=== PATIENT | female | born 1950 | race Caucasian/White ===

== ENCOUNTER → 2018-02-01 | Outpatient (CLI) | payer MEDICARE, MEDICAID ==
[~2018-02-01] MED LIST: AMLODIPINE-BEN1 EAC2 PO; ASA81BEC PO; ASPIRIN325 PO; BENZTROPINE MES1 MG; BENZTROPINE MES1 MG PO; CABERGOLINE 0.0.5 M1 PO; CALCIUM 500 +1 EAC5 PO; CLEOCIN HCL150 MG PO; COZAAR100 MG; COZAAR100 MG PO; DEPAKOTE ER500 MG; DEPAKOTE ER500 MG PO; FOSAMAX 70 MG T70 MG PO; HYDROCODON-ACE1 EAC7 PO; IBUPROFEN 600600 M1 PO; LASIX 20 MG TAB20 MG PO; LATUDA40 MG; LEVOTHROID100 MC1; LEVOTHYROXINE100 MC1; LIDOCAINE1 EACH TRANSDERM; LIPITOR10 MG PO; LOTREL 5-10 MG1 EACH; MACROBID 100 M100 M1 PO; MACROBID 100 M100 M2 PO; MACROBID 100 M100 M3 PO; MULTAQ400 MG PO; NEXIUM40 MG; NEXIUM40 MG PO; NITROGLYCERIN0.4 MG SUBLING; NORVASC2.5 MG PO; NORVASC5 MG PO; ONDANSETRON HCL4 M2 PO; OSELB75 PO; PERCOCET 5-3251 EACH PO; RISPERDAL 3 MG T3 M1 PO; RISPERDAL M-TA0.5 MG PO; RISPERDAL M-TAB3 MG; RYTHMOL 150MG150 M1 PO; SYNTHROID PO; SYNTHROID150 MCG PO; TRAMADOL 50 MG50 MG PO; TYLENOL325 MG PO
[2018-02-01 14:12] LABS: ABSOLUTE LYMPHOCYTES 1.8 thou/uL (0.8-5.3); ABSOLUTE MONOCYTES 0.5 thou/uL (0.0-1.2); ABSOLUTE NEUTROPHILS 3.2 thou/uL (1.6-8.1); BASOPHILS 0.9 %; EOSINOPHILS 0.7 %; HEMATOCRIT 33.5 % (37.0-47.0); HEMOGLOBIN 11.2 gm/dL (12.0-15.0); LYMPHOCYTES 32.7 %; MCH 28.8 pg (26.0-34.0); MCHC 33.4 g/dL (28.0-37.0); MCV 86.2 fL (80.0-100.0); MONOCYTES 9.3 %; MPV 9.1 fl. (7.2-11.1); NUCLEATED RBCS 0 /100WBC; PLATELET COUNT* 173 thou/uL (150-400); POLYS 56.4 %; RBC 3.88 mil/uL (4.20-5.00); WBC 5.6 thou/uL (4.0-11.0)
[2018-02-01 14:35] LABS: ALBUMIN 2.9 g/dL (3.4-5.0); CALCIUM 8.7 mg/dL (8.5-10.1); CREATININE 0.9 mg/dL (0.6-1.3); POTASSIUM 3.7 mmol/L (3.5-5.1); TOTAL BILIRUBIN 0.4 mg/dL (<0.1-1.0); TOTAL PROTEIN 6.2 g/dL (6.4-8.2)
== END ==
LOC: M.LAB 13:30
PROVIDERS: Nurse Practitioner Adult Health
DX: R19.7 Diarrhea, unspecified (principal); I10 Essential (primary) hypertension; E03.9 Hypothyroidism, unspecified; I48.91 Unspecified atrial fibrillation; M19.90 Unspecified osteoarthritis, unspecified site

== ENCOUNTER 2018-02-27 17:11 | Inpatient (IN) | payer MEDICARE, MEDICAID ==
[~2018-02-27] VITALS: Ht 170.2 cm; Wt 95.3 kg
[~2018-02-27 17:11] MED LIST changes: -CALCIUM 500 +1 EAC5 PO; -FOSAMAX 70 MG T70 MG PO; -LASIX 20 MG TAB20 MG PO; -LIDOCAINE1 EACH TRANSDERM; -MACROBID 100 M100 M1 PO; -MACROBID 100 M100 M3 PO; -SYNTHROID150 MCG PO; -TRAMADOL 50 MG50 MG PO; -TYLENOL325 MG PO
[2018-02-27 17:12] VITALS: BP 157/69
[2018-02-27 17:51] LABS: ABSOLUTE BASOPHILS 0.1 thou/uL (0.0-0.2); ABSOLUTE LYMPHOCYTES 1.6 thou/uL (0.8-5.3); ABSOLUTE MONOCYTES 0.7 thou/uL (0.0-1.2); ABSOLUTE NEUTROPHILS 4.5 thou/uL (1.6-8.1); BASOPHILS 0.8 %; EOSINOPHILS 0.5 %; HEMOGLOBIN 10.9 gm/dL (12.0-15.0); LYMPHOCYTES 23.3 %; MCH 28.7 pg (26.0-34.0); MCHC 32.9 g/dL (28.0-37.0); MCV 87.2 fL (80.0-100.0); MONOCYTES 10.4 %; MPV 8.9 fl. (7.2-11.1); NUCLEATED RBCS 0 /100WBC; PLATELET COUNT* 140 thou/uL (150-400); RBC 3.79 mil/uL (4.20-5.00); RDW-CV 17.1 % (10.5-14.5); WBC 6.9 thou/uL (4.0-11.0)
[2018-02-27 18:01] LABS: CALCIUM 8.3 mg/dL (8.5-10.1)
[2018-02-27 18:06] LABS: ALBUMIN 2.5 g/dL (3.4-5.0); TOTAL BILIRUBIN 0.4 mg/dL (<0.1-1.0); TOTAL PROTEIN 5.9 g/dL (6.4-8.2)
[2018-02-27 18:11] LABS: POTASSIUM 2.8 mmol/L (3.5-5.1)
[2018-02-27 20:31] LABS: CK-MB MASS 0.9 ng/mL (<0.5-3.6); TROPONIN-I LEVEL <0.06 ng/mL (<0.06)
[2018-02-27 22:26] VITALS: BP 132/55
[2018-02-28 01:34] VITALS: BP 161/65
[2018-02-28 05:10] VITALS: BP 118/52
[2018-02-28 05:48] LABS: ABSOLUTE BASOPHILS 0.1 thou/uL (0.0-0.2); ABSOLUTE LYMPHOCYTES 2.3 thou/uL (0.8-5.3); ABSOLUTE MONOCYTES 0.7 thou/uL (0.0-1.2); ABSOLUTE NEUTROPHILS 3.8 thou/uL (1.6-8.1); EOSINOPHILS 0.6 %; HEMATOCRIT 33.9 % (37.0-47.0); HEMOGLOBIN 11.1 gm/dL (12.0-15.0); LYMPHOCYTES 33.5 %; MCH 29.2 pg (26.0-34.0); MCHC 32.7 g/dL (28.0-37.0); MCV 89.2 fL (80.0-100.0); MONOCYTES 10.4 %; MPV 10.3 fl. (7.2-11.1); NUCLEATED RBCS 0 /100WBC; PLATELET COUNT* 120 thou/uL (150-400); POLYS 54.5 %; RBC 3.81 mil/uL (4.20-5.00); RDW-CV 17.2 % (10.5-14.5)
[2018-02-28 06:05] LABS: ALBUMIN 2.5 g/dL (3.4-5.0); CREATININE 0.9 mg/dL (0.6-1.3); POTASSIUM 3.3 mmol/L (3.5-5.1); TOTAL BILIRUBIN 0.3 mg/dL (<0.1-1.0); TOTAL PROTEIN 5.8 g/dL (6.4-8.2)
[2018-02-28 08:17] VITALS: BP 132/56
--- NOTE | 2018-02-28 14:47 | EKG ---
[place] [address] ELECTROCARDIOGRAM REPORT Name: DOMINICK AGRAWAL Room: [address] IN .R.#: [id number] Admission: 02/27/18 Attend Phys: Clint Delgadillo MD Discharge: Date of : 50 Report #: [id number] THIS REPORT FOR: //name// [facility] ED Test Date: 2018-02-27 Test Time: 17:36:19 Pat Name: DOMINICK AGRAWAL Department: Room: Gender: F Genomics Scientist: Isa ANTON : 1950 Requested By: Cory Farrell Order Number: [id number] MD: Brandon Kauffman Measurements Intervals [place] Rate: 47 P: 51 TX: 128 QRS: -17 QRSD: 106 T: 15 QT: 503 QTc: 445 Interpretive Statements Sinus bradycardia Borderline left axis deviation Low voltage, precordial leads Minimal ST depression, lateral leads Compared to ECG 05/10/2017 20:21:02 Low QRS voltage now present ST (T wave) deviation now present Sinus rhythm no longer present Electronically Signed On 02-28-2018 14:47:25 CDT by Brandon Kauffman [email or web address] <ELECTRONICALLY SIGNED> By: Brandon Kauffman MD, FACC 02/28/18 1447 1736 1736 Brandon Kauffman MD, FAC /EPI
--- NOTE | 2018-02-28 14:55 | EKG ---
[place] [address] ELECTROCARDIOGRAM REPORT Name: DOMINICK AGRAWAL Room: [address] ADM IN .R.#: [id number] Admission: 02/27/18 Attend Phys: Clint Delgadillo MD Discharge: Date of : 50 Report #: [id number] THIS REPORT FOR: //name// [facility] ED Test Date: 2018-02-28 Test Time: 07:24:03 Pat Name: DOMINICK AGRAWAL Department: Room: [place] [address] Gender: F Material Control Clerk: [facility] : 1950 Requested By: David Jimenez Order Number: [id number] MD: Brandon Kauffman Measurements Intervals [place] Rate: 59 P: 223 SC: 76 QRS: -25 QRSD: 121 T: 22 QT: 462 QTc: 458 Interpretive Statements Sinus rhythm Short SC interval Baseline artifact noted Compared to ECG 05/10/2017 20:21:02 Short SC interval now present Electronically Signed On 02-28-2018 14:54:55 CDT by Brandon Kauffman [email or web address] <ELECTRONICALLY SIGNED> By: Brandon Kauffman MD, [facility] 02/28/18 1454 0724 0724 Brandon Kauffman MD, [facility] /EPI
[2018-02-28 16:44] VITALS: BP 124/62
[2018-03-01] VITALS: BP 130/60
[2018-03-01 08:00] VITALS: BP 128/69
[2018-03-01 16:45] VITALS: BP 125/57
[2018-03-01 23:45] VITALS: BP 139/79
[2018-03-02 03:45] VITALS: BP 139/62
[2018-03-02 09:00] VITALS: BP 137/65
[2018-03-02 14:08] VITALS: BP 137/65
--- NOTE | 2018-03-06 08:44 | CON ---
[address] [address] CONSULTATION Name: DOMINICK AGRAWAL Room: [address] IN .R.#: [id number] Admission: 02/27/18 Attend Phys: Clint Delgadillo MD Discharge: 03/02/18 Date of : 50 Report #: [id number] THIS REPORT FOR: //name// CC: Clint Nash MD [facility] Brandon Steel MD DATE OF SERVICE: 02/28/2018 CARDIOLOGY CONSULTATION INDICATION: Bradycardia. HISTORY OF PRESENT ILLNESS: The patient is a very pleasant 67-year-old white female with history of paroxysmal atrial fibrillation. She has been maintaining sinus rhythm on Multaq 400 mg twice daily. She was admitted to the hospital after a fall at home. She is noted to be moderately bradycardic with heart rate in the 50s and upper 40s. She is hemodynamically stable. She does report some positional dizziness without syncope. She denies chest pain. She is without other cardiac complaint. There was some suggestion on EKG with possible atrial flutter, although I believe this represents some form of tremor or electrical artifact as she is clearly in sinus rhythm. She denies chest pain. She is without other cardiac complaint. PAST MEDICAL HISTORY: 1. Paroxysmal atrial fibrillation. 2. Essential hypertension. 3. GERD. 4. Hyperlipidemia. 5. Hypothyroidism. 6. Orthostatic hypotension. 7. Schizoaffective disorder. PAST SURGICAL HISTORY: 1. Hand surgery. 2. Salivary gland surgery. 3. Tumor removal. FAMILY HISTORY: Positive for heart failure. SOCIAL HISTORY: The patient is a lifelong nonsmoker. She does not drink alcohol. ALLERGIES: KEFLEX, CODEINE, CORTISONE, DOXYCYCLINE, FISH OIL, HYDROCHLOROTHIAZIDE, IODINE, LASIX, PENICILLIN G, PENTAZOCINE, PO[place] EXTRACT, [place] [address] CONSULTATION Name: DOMINICK AGRAWAL Room: [address]#: [id number] Admission: 02/27/18 Attend Phys: Clint Delgadillo MD Discharge: 03/02/18 Date of : 50 Report #: [id number] PREDNISONE, PROCAINE, SULFA ANTIBIOTICS. PHYSICAL EXAMINATION: VITAL SIGNS: Blood pressure 132/56, pulse 53 and regular. GENERAL: This is a pleasant lady in no distress. Mood and affect appropriate. HEENT: The patient is wearing glasses. Extraocular muscles intact. Mucous membranes are moist. NECK: Shows no jugular venous distention. There are no carotid bruits. CHEST: Reveals clear lung owens. CARDIAC: Reveals a bradycardic rate, regular rhythm without gallop or murmur. ABDOMEN: Reveals normal bowel sounds. The abdomen is soft, nontender. EXTREMITIES: Shows no edema. Peripheral pulses 2+ and easily palpable. SKIN: Warm and dry. LABORATORY DATA: EKG shows sinus bradycardia. Some or most leads appears to be some electrical interference or artifact. IMPRESSION AND RECOMMENDATIONS: 1. Bradycardia, no specific treatment at this time. We will follow clinically. 2. Paroxysmal atrial fibrillation by history. She has had no clinical recurrence. EKG shows sinus rhythm with some electrical artifact. No other specific treatment at this time. 3. Hypertension, adequately controlled. 4. History of dyslipidemia, diet-controlled. <ELECTRONICALLY SIGNED> By: Brandon Kauffman MD, FACC 03/06/18 0844 1406 [id number] Kauffman MD, FACC /nt
== END 2018-03-02 17:11 | DRG 103 ==
LOC: M.ERS 17:11 → M.3W 20:31 → M.TBA-ER 20:31 → M.3W 02-28 08:26
PROVIDERS: Emergency Medicine; Nurse Practitioner Psychiatric/Mental Health; ADMIT Internal Medicine
DX: F07.81 Postconcussional syndrome (principal); I48.92 Unspecified atrial flutter; E44.0 Moderate protein-calorie malnutrition; R00.1 Bradycardia, unspecified; T14.8XXA Other injury of unspecified body region, initial encounter; E87.6 Hypokalemia; I48.0 Paroxysmal atrial fibrillation; M19.90 Unspecified osteoarthritis, unspecified site; Z96.652 Presence of left artificial knee joint; I10 Essential (primary) hypertension; K21.9 Gastro-esophageal reflux disease without esophagitis; E78.5 Hyperlipidemia, unspecified; E03.9 Hypothyroidism, unspecified; F25.9 Schizoaffective disorder, unspecified; Z82.49 Family history of ischemic heart disease and other diseases of the circulatory system; Z88.0 Allergy status to penicillin; Z88.2 Allergy status to sulfonamides; Z88.8 Allergy status to other drugs, medicaments and biological substances; Z88.6 Allergy status to analgesic agent; Z91.041 Radiographic dye allergy status; Z88.1 Allergy status to other antibiotic agents; Z86.010 Personal history of colon polyps; Z68.32 Body mass index [BMI] 32.0-32.9, adult; W18.39XA Other fall on same level, initial encounter; Y93.89 Activity, other specified; Y92.89 Other specified places as the place of occurrence of the external cause; Y99.8 Other external cause status

== ENCOUNTER 2018-03-02 16:07 | Inpatient (IN) | payer MEDICARE, MEDICAID ==
[~2018-03-02] VITALS: Ht 170.2 cm; Wt 96.8 kg
[2018-03-02 17:23] VITALS: BP 116/61
--- NOTE | 2018-03-02 17:47 | NUR ---
ASSUMED CARE OF PT AT 1650 PT HAS C/O PAIN IN LOWER BACK AT THIS TIME, STANDING ORDERS FOR ACETAMINOPHEN AT THIS TIME. WILL PROVIDE ALICJA. PT VSS UPON ADMISSION TO UNIT. CALLED DIETARY TO OBTAIN TRAY FOR PT AT THIS TIME. WILL CONTINUE TO ASSESS AND MONITOR
--- NOTE | 2018-03-02 18:51 | NUR ---
PT VSS AT THIS TIME, PT PROVIDED WITH ACETAMINOPHEN 650MG PER STANDING ORDER, PHYSICIAN HAS NOT RETURNED CALL TO PLACE ORDERS AT THIS TIME. PHYSICIAN HAS BEEN NOTIFIED PT HAS ARRIVED TO THE UNIT. PT ABLE TO STAND PIVOT TO BSC AND TO BED AT THIS TIME. PT TOLERATING REGULAR DIET, AND RA AT THIS TIME. PT AMBULATES WITH WALKER AND GAIT BELT. PT HAS BILATERAL 1+ PITTING EDEMA IN LOWER EXTREMETIES AT THIS TIME. WILL CONTINUE TO ASSESS AND MONITOR.
[2018-03-02 20:00] VITALS: BP 135/68
--- NOTE | 2018-03-02 23:27 | NUR ---
ASSUMED CARES AT 1915. REVIEWED PT'S MEDS. PT STATES TAKES PILLS ONE BY ONE WITH WATER. AFTER SWALLOWING FIRST PILL WITH WATER, PT BEGAN COUGHING FIT. SPIT OUT SOME CLEAR MUCOUS. THIS LASTED FOR SEVERAL MINUTES. AFTERWARDS PT STATED THAT STILL FELT LIKE PILL WAS STILL STUCK IN THROAT. APPLESAUCE/PUDDING GIVEN. ENCOURAGED DRINKING AND COUGHING. EVENTUALLY TOOK REST OF PILLS IN APPLESAUCE. PT DENIED ANY PREVIOUS SWALLOWING ISSUES AND HAD JUST EARLIER EATEN DINNER WITHOUT ISSUES. OBTAINED ORDER FROM DR MÉNDEZ TO ADD BEDSIDE SWALLOW EVAL WITH SPEECH IN AM. WILL CONTINUE TO MONITOR.
[2018-03-03 04:05] LABS: HEMATOCRIT 32.3 % (37.0-47.0); MCH 29.4 pg (26.0-34.0); MCHC 34.1 g/dL (28.0-37.0); MCV 86.2 fL (80.0-100.0); MPV 9.4 fl. (7.2-11.1); RBC 3.75 mil/uL (4.20-5.00); WBC 7.5 thou/uL (4.0-11.0)
[2018-03-03 04:26] LABS: CALCIUM 8.3 mg/dL (8.5-10.1); CREATININE 0.8 mg/dL (0.6-1.3); POTASSIUM 3.9 mmol/L (3.5-5.1)
--- NOTE | 2018-03-03 06:44 | NUR ---
PT ALERT AND ORIENTED. PLEASANT AND COOPERATIVE. S/P FALL AT HOME. HX OF AFIB, SCHIZOPHRENIA. DENIED ANY NEED FOR PAIN MED. TOOK PILLS WITH APPLESAUCE THIS AM WITHOUT ANY FURTHER ISSUES. SHE IS MOD ASSIST WITH GAIT BELT AND WALKER. NEEDS ASSIST WITH LEGS INTO BED. VERY SLOW WITH TRANSFERS. NEEDS MUCH CUEING FOR PROPER TRANSFERRING. UP TO BSC. RN ASSISTED WITH PERICARES. PT SAYS THAT HAS HAD URINARY INCONTINENCE AT TIMES BUT SHE WAS CONTINENT THIS SHIFT. HAS BLE EDEMA 2+. LEGS ELEVATED UP ONTO PILLOWS. DOES HAVE TREMORS TO HANDS. PT ORIENTED TO RM/UNIT AND QUESTIONS ANSWERED. PT SLEPT WELL MOST OF THE NIGHT. USED CALL LIGHT APPROPRIATELY. BED ALARM ON.
[2018-03-03 09:29] VITALS: BP 144/70
--- NOTE | 2018-03-03 09:59 | NUR ---
SW met with pt to complete initial assessment, introduce self, and SW role. SW familiar with pt from pt stay on med surg unit. Pt alert, oriented, pleasant. Pt lives at home in an ILF apt alone/senior apt setting. Pt has 2 sisters and a brother who live nearby. SW explained team conference on Tuesday; family contact can be Hong/brother at [phone] or Judy/sister at [phone]. Pt does not have a DPOA and pt did not want any information about DPOA/AD at this time. Pt independent with ADLs and mobility prior, drove and does not have any stairs at home. Pt has SPC, FWW, walker with a seat and basket, elevated toilet seats. Pt has hx of [employer]; still not certain of the name of the company but thinks it had "heart" in the name. Pt PCP Brandon Steel and saw him about a month ago. SW to continue to follow to assist with safe dc planning.
--- NOTE | 2018-03-03 11:33 | NUR ---
Nutrition: Pt admitted to rehab s/p fall and concussion. Lives in ILF apt. H/o HTN, schizoaffective disorder. Usual wt is 210-220#. Current wt: 217#. Regular diet, eating 90%. Alb 2.5, prealb 12.5. Hopeful for continued good po intake, with focus on HBV protein. Low nutrition risk at this time. Will follow weekly for labs, protein, po intake, wt.
--- NOTE | 2018-03-03 17:21 | NUR ---
RESUMED CARE THIS AM, A/O, DENIES PAIN, DISPLAYS MUCH IMPROVEMENT SINCE LAST ASSIGNED. ABLE TO WALK WITH SBA, CANE, GAIT BELT OVER 200 FT WITH THERAPY, MANEUVERED WELL WITH WALK-IN SHOWER THIS AM, WALKING FROM RECLINER TO BATHROOM, USING 4 POINT CANE. TOLERATING DIET WELL, DID HAVE MOD BM THIS AM. CONTINENT OF URINE THIS SHIFT, FAMILY/FRIENDS AT BEDSIDE, CALL LIGHT IN REACH, CONT POC.
--- NOTE | 2018-03-03 17:27 | NUR ---
RESUMED CARE THIS AM, A/O, DENIES PAIN, LAST BM THIS AM. CONTINENT OF URINE, UP W/ EXT ASSIST FOR TRANSFERS, SBA WITH LOCOMOTION, SETUP ASSIST WITH MEALS. WORKING WELL WITH THERAPIES, PROGRESSING TOWARD GOALS, MUCH IMPROVEMENT SINCE LAST ASSIGNMENT. CALL LIGHT IN REACH, CONT POC.
[2018-03-03 23:20] VITALS: BP 146/63
--- NOTE | 2018-03-04 05:22 | NUR ---
ASSUMED CARE AT 1920. PT ALERT AND ORIENTED. PLEASANT. DENIED ANY PAIN. PT TOOK PILLS WHOLE WITH WATER AND REFUSED ANY PUDDING/APPLESAUCE. DID NOT HAVE ANY ISSUES WITH SWALLOWING OF PILLS TONIGHT. SHE IS A MOD ASSIST WITH GAIT BELT AND WALKER. UP TO BSC. NEEDS EXTRA TIME. NEEDS RN ASSIST WITH PERICARES AND ONE SIDE DRESSING. PT SLEPT WELL. CALL LIGHT IN REACH AND BED ALARM ON.
--- NOTE | 2018-03-04 16:55 | NUR ---
ASSUMED CARE AT 0730 PATIENT ALERT/ORIENTED, NO COMPLAINTS OF PAIN THIS SHIFT, UP WITH ASSIST OF ONE WITH GAIT BELT AND WALKER. PARTICIPATED IN ALL THERAPIES TODAY, CALL LIGHT IN REACH, BED/CHAIR ALARMS IN PLACE. HOURLY ROUNDING COMPLETED. DR GUERRA SAW PATIENT FOR PODIATRY CONSULT.
[2018-03-04 19:30] VITALS: BP 134/62
--- NOTE | 2018-03-04 19:30 | NUR ---
RESTING QUIELTY IN BED. DENIES DISCOMFORT. DENTURES PUT TO SOAK PER PATIENT'S REQUEST.
--- NOTE | 2018-03-05 05:34 | NUR ---
RESTED QUIELTY. NO C/O DISCOMFORT. UP THIS MORNING TO BEDSIDE COMMODE WITH MODERATE ASSIST OF ONE, GAITBELT, WALKER. VERY SLOW. DID OWN HYGIENE. MAX ASSIST WITH PULLING PANTS AND UNDERWEAR UP AND DOWN. PATIENT UNSTEADY SO HELD ONTO WALKER AND PANTS ARE TIGHT. TOOK HS MEDS WHOLE ONE AT A TIME WITH VANILLA PUDDING FOLLOWED WITH WATER. TAKES PILLS WITH EXTRA TIME. HOURLY ROUNDING IN PROGRESS.
[2018-03-05 07:56] VITALS: BP 146/67
--- NOTE | 2018-03-05 17:48 | NUR ---
ASSUMED CARE AT 0730 PATIENT ALERT/ORIENTED NO COMPLAINTS OF PAIN THIS SHIFT, UP WITH ASSIST OF ONE AND WALKER/GAIT BELT, AMBULATED IN ROOM AND TO BATHROOM. CALL LIGHT IN REACH, BED/CHAIR ALARMS IN PLACE, HOURLY ROUNDING COMPLETED. FAMILY VISITING THROUGHOUT THE DAY.
[2018-03-05 19:45] VITALS: BP 123/58
--- NOTE | 2018-03-05 19:45 | NUR ---
RESTING QUIETLY IN BED. DENIES DISCOMFORT.
--- NOTE | 2018-03-06 05:27 | NUR ---
UP X ONE TO BEDSIDE COMMODE TO VOID. DID OWN HYGIENE. MAX ASSIST WITH CLOTHING. UNSTEADY WHEN UP. TOOK HS MEDS WHOLE ONE AT A TIME WITH CORNELL. HOURLY ROUNDING IN PROGRESS.
[2018-03-06 07:27] VITALS: BP 131/59
--- NOTE | 2018-03-06 16:30 | NUR ---
AM ASSESSMENT AND VITAL SIGNS COMPLETED DOCUMENTED. PT HAS BEEN PLEASANT AND COOPERATIVE, PARTICIPATED IN ALL THERAPY SESSIONS TODAY. PT HAS BEEN AMBULATORY TO AND FROM THE BATHROOM WITH WALKER AND MIN ASSIST, ABLE TO DO HER OWN HYGEINE BUT REQUIRES HELP WITH ADJUSTING CLOTHING. PT NEEDED NO HELP WITH TRAY SET UP OR EATING. FALL PRECAUTIONS AMD HOURLY ROUNDING CONTINUE, SHE USES THE CALL LIGHT TO CALL FOR ASSISTANCE.
[2018-03-06 20:00] VITALS: BP 126/59
--- NOTE | 2018-03-07 05:18 | NUR ---
ASSUMED CARES AT 1915. PT ALERT AND ORIENTED. PLEASANT. DOES HAVE SOME BACK PAIN BUT REFUSED PAIN MEDS. DENIES ANY SOA, DIZZINESS, N/V. TOOK PILLS WHOLE IN PUDDING WITHOUT ISSUES. SHE IS A MOD ASSIST WITH GAIT BELT AND WALKER. NEEDS EXTRA TIME. RN ASSISTED WITH LEGS INTO BED AND ONE SIDED DRESSING. SLEPT WELL. CALL LIGHT IN REACH AND BED ALARM ON.
[2018-03-07 08:00] VITALS: BP 103/56
--- NOTE | 2018-03-07 09:49 | NUR ---
AM ASSESSMENT AND VITAL SIGNS COMPLETED DOCUMENTED. PT ASSISTED OUT OF BED BY OT AND ADL's COMPLETED. PT SAT UP IN A CHAIR FOR BREAKFAST, NO ASSISTANCE NEEDED. AM MEDS GIVEN WHOLE WITH WATER. FALL PRECAUTIONS AND HOURLY ROUNDING IN PLACE. CALL LIGHT BESIDE HER.
--- NOTE | 2018-03-07 13:49 | NUR ---
SW called and spoke with pt brother to follow up and prepare for team conference. Pt brother said he would be interested to know to be able to plan ahead for pt dc date. Pt brother did not have any other concerns at the moment and said that he and his sister suspect that pt does not eat properly and they are looking into Meals on Wheels. SW to continue to follow to assist with safe dc planning.
--- NOTE | 2018-03-07 16:18 | NUR ---
I have reviewed the documentation by MAXIMO MOY TODAY and I concur with it. DELFINA CHEN
[2018-03-07 20:05] VITALS: BP 141/77
--- NOTE | 2018-03-08 05:02 | NUR ---
PATIENT HAS REMAINED ALERT AND ORIENTED X 4 THROUGHOUT THE SHIFT AND RESTING QUIETLY ON HOURLY ROUNDS. AMBULATED TO BR WITH WALKER AND GAIT BELT. CGA FOR SAFETY. SIT TO STAND WITH VERY MIN ASSIST FROM RECLINER AND CGA FROM TOILET. ABLE TO TO COMPLETE ALIREZA-CARE POST VOID INDEPENDENTLY AND PULL PANTS UP AND DOWN GIVEN TIME. NO INCONT OF THIS WRITING. MEDICATIONS PROVIDED IN CUP OF APPLESAUCE. PATIENT INDEPENDENT WITH TAKING FROM CUP WITH SPOON. VITAL SIGNS STABLE. CONTINUE TO MONITOR.
[2018-03-08 09:00] VITALS: BP 107/57
--- NOTE | 2018-03-08 13:49 | NUR ---
SW met with pt to review team conference summary. Plan for pt to continue therapies on rehab unit and for team to reassess pt length of stay during team conference next Thursday 03/15. Pt in agreement with plan. SW called and spoke with pt brother Wilfredo and reviewed team conference summary. Pt brother in agreement with plan and noted that he felt pt could do more than she does and strong encouragement in therapies to do more would be advisable. SW to share with team. SW to continue to follow to assist with safe dc planning.
--- NOTE | 2018-03-08 14:41 | NUR ---
I have reviewed the documentation by MAXIMO MOY TODAY and I concur with it. DELFINA CHEN
--- NOTE | 2018-03-08 16:24 | NUR ---
PT HAS PARTICIPATED WITH THERAPIES AND CALLS FOR ASSIST TO BATHROOM. PT AMBULATES WITH WALKER,GAITBELT AND 1 ASSIST WITH SLOW STEADY GAIT. PT VOIDS WELL AND WEARS BREIF FOR COMFORT AND IS ABLE TO PULL PANTS UP AND DOWN WITH EXTRA TIME.PT DENIES PAIN. PT EATS MEALS IN DINNINGROOM. PT REMAINS ALERT AND ORIENTATED AND PROGRESSES TOWARDS GOALS. HOURLY ROUNDING CONTINUES.
[2018-03-08 20:00] VITALS: BP 138/67
--- NOTE | 2018-03-09 05:58 | NUR ---
Alert and oriented x 4.Vitals are stable. She is up with stand by assist and walker and gaitbelt. She does have some hand tremors and does take depakote. She also wants her meds whole with applesauce or pudding. She denies pain. She was up in the recliner at start of shift and then went to bed. She denied having to use bathroom before going to bed. She did sleep in her clothes with her sweater on. This am she took her morning meds and again denied she had to use the bathroom. She has slept well.
[2018-03-09 07:52] VITALS: BP 141/59
--- NOTE | 2018-03-09 17:50 | NUR ---
PT ALERT AND ORIENTATED AND CALLS FOR ASSIST NEEDED. PT AMBULATES WITH WALKER,GAITBELT AND SLOW STEADY GAIT. PT VOIDS WELL AND IS CONTINENT. PT DENIES PAIN. MEALS TOLERATED WELL.PT PROGRESSES TOWARDS GOALS AND HOURLY ROUNDING CONTINUES.
[2018-03-09 20:00] VITALS: BP 113/53
--- NOTE | 2018-03-10 05:41 | NUR ---
PATIENT ALERT AND ORIENTED X 4. VITALS STABLE. RA. DENIES ANY NEEDS. SLEPT COMFORTABLY THROUGHT THE NIGHT. TAKES PILLS WHOLE IN APPLEASAUCE. UP WITH ASSIST X 1. HOURLY ROUNDS. BED ALARM IN USE. NURSING WILL CONTINUE TO MONITOR.
[2018-03-10 08:00] VITALS: BP 101/65
--- NOTE | 2018-03-10 16:52 | NUR ---
I have reviewed the documentation by MAXIMO MOY from 03/09/18 to 03/10/18 and I concur with it. DELFINA CHEN
--- NOTE | 2018-03-10 17:48 | NUR ---
ASSUMMED CARE OF PT AT 0730, PT ALERT, PT TRANSFERS WITH SBA GB WALKER MOVES SLOWLY NEEDS SOME CUEING, AMBULATED TO BATHROOM, DENIES PAIN, DENIES NAUSEA, TAKING FOOD AND FLUIDS WELL, ATE LUNCH AND DINNER IN DININGROOM, HOURLY ROUNDING COMPLETED, PARTICIPATED IN ALL THERAPIES, LEGS ELEVATED IN BED AND CHAIR BUT REMAIN EDEMATOUS, ASSESSMENT COMPLETE, WILL CONTINUE TO MONITOR.
[2018-03-10 20:00] VITALS: BP 117/50
--- NOTE | 2018-03-11 01:36 | NUR ---
ASSUMED CARE AT 1930. PATIENT ALREADY IN BED. TURNS SELF. TAKES PILLS WHOLE IN APPLESAUCE PER REQUEST. PAIN MEDS GIVEN AT HS FOR LT KNEE PAIN WITH RELIEF. LEGS ELEVATED AND HEELS OFFLOADED. HOURLY ROUNDS CONTINUE. BED ALARM ON. CALL LITE IN REACH.
[2018-03-11 03:58] LABS: HEMATOCRIT 32.2 % (37.0-47.0); HEMOGLOBIN 10.8 gm/dL (12.0-15.0); MCH 29.3 pg (26.0-34.0); MCHC 33.4 g/dL (28.0-37.0); MCV 87.7 fL (80.0-100.0); RBC 3.67 mil/uL (4.20-5.00); RDW-CV 17.8 % (10.5-14.5); WBC 7.4 thou/uL (4.0-11.0)
[2018-03-11 04:38] LABS: ALBUMIN 2.2 g/dL (3.4-5.0); CALCIUM 8.3 mg/dL (8.5-10.1); CREATININE 0.8 mg/dL (0.6-1.3); MAGNESIUM 2.1 mg/dL (1.8-2.4); TOTAL BILIRUBIN 0.3 mg/dL (<0.1-1.0); TOTAL PROTEIN 5.5 g/dL (6.4-8.2)
--- NOTE | 2018-03-11 06:02 | NUR ---
SLEPT MUCH OF THE SHIFT. TURNS SELF. CALL LITE IN REACH. BED ALARM ON. NO C/O PAIN. HOURLY ROUNDS CONTINUE. CALL LITE IN REACH.
[2018-03-11 08:00] VITALS: BP 148/68
--- NOTE | 2018-03-11 17:01 | NUR ---
ASSUMMED CARE OF PT AT 0730, PT ALERT AND ORIENTED, PT TRANSFERS WITH SBA GB WALKER CUEING AND VERY SLOW AT TIMES, PT DENIES PAIN, PT TAKING FOOD AND FLUIDS WELL, AMBULATES TO BATHROOM TO VOID, HAD LARGE BM THIS SHIFT, PARTICIPATED IN ALL THERAPIES, HOURLY ROUNDING COMPLETED, ASSESSMENT COMPLETE, WILL CONTINUE TO MONITOR.
[2018-03-11 20:00] VITALS: BP 110/52
--- NOTE | 2018-03-11 23:12 | NUR ---
ASSUMED CARE AT 1930. PATIENT RESTING IN BED. TURNS SELF. TAKES PILLS WHOLE WITH APPLESAUCE. BILAT FEET EDEMATOUS. HAS CALLOUSES BILAT FEET, LOTION LIBERALLY APPLIED AND GRIPPER SOCKS REAPPLIED PER REQUEST. STATES DR. LEON RECENTLY TRIMMED TOENAILS. DECLINED COLACE TONIGHT. UP WITH SBA, GAIT BELT, WALKER, NEEDS EXTRA TIME, BUT CAN DO HYGIENE AND CLOTHING ADJUSTMENTS GIVEN EXTRA TIME. TREMORS OF LEFT HAND NOTED AT TIMES. HOURLY ROUNDS CONTINUE. BED ALARM ON. CALL LITE IN REACH.
--- NOTE | 2018-03-12 05:16 | NUR ---
SLEPT MOST OF THE NIGHT. UP TO VOID ONCE. TURNS SELF. NO C/O PAIN. HOURLY ROUNDS CONTINUE. CALL LITE IN REACH. BED ALARM ON.
[2018-03-12 08:00] VITALS: BP 114/55
--- NOTE | 2018-03-12 16:57 | NUR ---
ASSUMMED CARE OF PT AT 0730, PT ALERT AND ORIENTED, PT TRANSFERS WITH SBA GB WALKER AND CUEING, MOVES SLOWLY, TAKING FOOD AND FLUIDS WELL, DENIES PAIN THIS SHIFT, AMBULATED TO BATHROOM TO VOID, PT DID BATH WITH SET UP AND ASSIST WITH LOWER LEGS AND FEET, HAD MEALS IN DININGROOM, MOVES SLOWLY WITH ALL ACTIVITES, HOURLY ROUNDING COMPLETED, ASSESSMENT COMPLETED, WILL CONTINUE TO MONITOR.
[2018-03-12 20:00] VITALS: BP 130/60
--- NOTE | 2018-03-12 22:08 | NUR ---
ASSUMED CARE AT 1930. PATIENT RESTING IN BED WATCHING TV. TAKES PILLS WHOLE IN APPLESAUCE. TREMOR NOTED TO LEFT HAND AT TIMES. MOVES SELF IN BED WELL, TURNS SELF. MOVES SLOWLY AND SPEAKS SLOWLY, BUT COMPLETES TASKS NEEDED. DENIES PAIN. HOURLY ROUNDS CONTINUE. BED ALARM ON. CALL LITE IN REACH.
--- NOTE | 2018-03-13 06:10 | NUR ---
SLEPT MOST OF THE SHIFT. GOT UP ONCE TO VOID. NEEDS EXTRA TIME, TAKES SMALL STEPS. UP WITH SBA, GAIT BELT, WALKER. NO C/O PAIN. HOURLY ROUNDS CONTINUE. BED ALARM ON. CALL LITE IN REACH.
[2018-03-13 07:07] VITALS: BP 144/66
--- NOTE | 2018-03-13 07:19 | NUR ---
ASSUMED CARE OF PT AT THIS TIME. PT RESTING COMFORTABLY IN BED AT THIS TIME WITH NO C/O PAIN AT THIS TIME. CALL LIGHT IN REACH, HEELS OFFLOADED, BED ALARM SET AT THIS TIME. PT EDUCATED REGARDING TAKING STOOL SOFTENER THIS MORNING DUE TO HAVING 2 DAYS WITHOUT A BM, PT AGREEABLE TO THIS PLAN AT THIS TIME. WILL CONTINUE TO ASSESS AND MONITOR.
[2018-03-13 07:27] VITALS: BP 144/66
--- NOTE | 2018-03-13 18:44 | NUR ---
PT AMBULATES TO RESTROOM WITH WALKER AND GAIT BELT THIS SHIFT WITH SBA THIS SHIFT. PT TOLERATING REGULAR DIET THIS SHIFT AND ATE 90% OF ALL 3 MEALS. PT PARTICIPATES IN DRESSING/UNDRESSING WITH MINIMAL/MODERATE ASSISTANCE THIS SHIFT. PT ON RA AND VSS AT THIS TIME. PT PARTICIPATES WITH MINIMAL ASSISTANCE IN GROOMING ADL'S.
[2018-03-13 20:00] VITALS: BP 126/63
--- NOTE | 2018-03-14 01:47 | NUR ---
ASSUMED CARE @ 1929-03/13-TUESDAY.AWAK,E IN BED W/ HOB UP.HEELS OFF BED ALREADY @ 1929.BED ALARM ALREADY ON @ 1929.WANTS ONLY SIDERAILS X3 UP.WANTS LIGHT ON SINK ALL NIGHT.TAKES SMALL PILLS WHOLE ONE @ A TIME W/ H20 @ 2029.BIG PILLS BROKEN IN HALF & GIVEN W/ APPLE SAUCE,BUT HAD DIFFICULTY SWALLOWING SO-VANILLA PUDDING USED INSTEAD.MIN ASSIST W/ BED TRANSFERS.SBA FOR ALL TOILETING.NOTED TREMORS ON LEFT HAND.PER PATIENT TREMORS ARE FROM TAKING RISPERIDONE X 10 YEARS.ON HOURLY ROUNDS.
--- NOTE | 2018-03-14 05:25 | NUR ---
SLEEPING SINCE 0.BRP W/ SBA X1.ATE ALL VANILLA PUDDING HS SNACKS W/ DEPAKOTE MEDS.
[2018-03-14 08:00] VITALS: BP 116/55
--- NOTE | 2018-03-14 15:21 | PLAN ---
[address] [address] REHAB UNIT PLAN OF CARE Name: DOMIINCK AGRAWAL Room: [address] IN [facility].#: [id number] Admission: 03/02/18 Attend Phys: Mindy Mcgee DO Discharge: Date of : 50 Report #: [id number] THIS REPORT FOR: //name// CC: Mindy Steel DATE OF SERVICE: 03/03/2018 OVERALL PLAN OF CARE The patient is a 67-year-old female status post fall from standing height with TBI and postconcussive syndrome. She had no loss of consciousness. She does have a complex medical history. She was cleared by Cardiology. She does have alterations in her mobility and activities of daily living, mostly from her memory changes, neck pain and back pain. 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 MEDICAL PROGNOSIS: Good. REHABILITATION PROGNOSIS: Good. Estimated length of stay is 10-12 days with discharge disposition to the home setting where she lives in an accessible house alone. Previous level of function was independent with activities of daily living to modified independent. Current level of function is contact guard assist to moderate assist of 1-2 depending on therapy, activity and time of day. She does have mild impairment of comprehension, expression, social interaction, problem solving and memory. Physical therapy will see the patient 60-90 minutes per day, 5 days per week, working on upper and lower body strength, balance, coordination, navigation. Occupational therapy will work with the patient 60-90 minutes per day, 5 days per week, working on upper and lower body strength, balance, coordination, navigation, bathing, dressing and toileting, this will be 60-90 minutes per day, 5 days per week. Speech language pathology will do bedside swallow to assess for her ability to swallow medications. We will also work cognitively on memory, cognition, social interaction, problem solving. This will be 30-90 minutes per day, 5 [place] [address] REHAB UNIT PLAN OF CARE Name: DOMINICK AGRAWAL Room: [address] IN ..#: [id number] Admission: 03/02/18 Attend Phys: Mindy Mcgee DO Discharge: Date of : 50 Report #: [id number] This is an overall plan of care, may change from time to time. We will team weekly and make changes to plan of care as needed. <ELECTRONICALLY SIGNED> By: Mindy Mcgee DO 03/14/18 1521 1202 [id number] Mcgee DO /nt
--- NOTE | 2018-03-14 15:21 | H ---
[address] [address] HISTORY AND PHYSICAL Name: DOMINICK AGRAWAL Room: [address] IN ..#: [id number] Admission: 03/02/18 Attend Phys: Mindy Mcgee DO Discharge: Date of : 50 Report #: [id number] THIS REPORT FOR: //name// CC: Mindy Steel HISTORY OF PRESENT ILLNESS: This is a 67-year-old female admitted to inpatient rehabilitation status post TBI with postconcussive syndrome after a fall, neck pain, back pain, history of bradycardia with negative cardiac workup and some shortness of breath. She was admitted on 02/27/2018. She did deny loss of consciousness and imaging was negative; however, she had persistent dizziness and alterations in activities of daily living from her previous level of function of modified independent to independent with activities of daily living. She is currently contact guard assist to mod assist of 1-2 depending on therapy, activity and time of day. She got mild impairment of comprehension, expression, social interaction, problem solving and memory. Estimated length of stay is 10-12 days with discharge disposition to the home setting. She does reside there alone. There have been no significant changes since the preadmission screening. She does have multiple medical comorbidities requiring acute daily care. PAST MEDICAL HISTORY: Hypertension, atrial fibrillation, osteoarthritis, hyperlipidemia, GERD, anemia, debility, hypothyroid, bradycardia, colon polyps, dyspnea, schizoaffective disorder, bipolar, hypokalemia, heart murmur and multiple falls. She does have mild protein-calorie malnutrition with a prealbumin of 12.5, albumin of 2.5, mild anemia with a hemoglobin 11.1. PAST SURGICAL HISTORY: Cholecystectomy, left total knee arthroplasty, breast biopsy, lymph node removal in the left neck, benign cyst or tumor removed from the neck and 2 salivary glands removed. ALLERGIES: Multiple allergies including POLLEN, PENICILLIN, CEPHALOSPORINS, FISH, IODINE, CODEINE, PENTAZOCINE, PREDNISOLONE, HYDROCHLOROTHIAZIDE, FUROSEMIDE, CEPHALEXIN, DOXYCYCLINE, SULFAMETHOXAZOLE, CIPROFLOXACIN, AZITHROMYCIN, PROCAINE, CORTISONE, PENICILLIN G, LEVOFLOXACIN, LATEX and AVOCADO. FAMILY HISTORY: Cardiac disease. SOCIAL HISTORY: No tobacco, alcohol or illicit drug use. REVIEW OF SYSTEMS: Fourteen-point review of systems is done today, is negative except as mentioned in HPI. Specifically, no fever, chest pain, shortness of breath, abdominal pain or distention, change in bowel or change in bladder. Imaging is reviewed. [place]ication [place] [address] HISTORY AND PHYSICAL Name: DOMINICK AGRAWAL Room: [address] IN [facility]#: [id number] Admission: 03/02/18 Attend Phys: Mindy Mcgee DO Discharge: Date of : 50 Report #: [id number] PHYSICAL EXAMINATION: GENERAL: Alert, oriented, up in the chair, no family is present. No apparent distress. VITAL SIGNS: Reviewed and are stable. ABDOMEN: Obese: Soft, nontender, nondistended. NEUROLOGIC: Cranial nerves 2-12 are grossly intact with no focal neuro deficits, 5/5 strength in the bilateral upper and lower extremities. She does have some decreased range of motion of cervical spine. ASSESSMENT: 1. Status post fall with postconcussive syndrome. 2. Neck pain. 3. Back pain. 4. Recent fall. 5. Alterations in activities of daily living. PLAN: Admission to inpatient rehabilitation to facilitate safe discharge to the home setting where she resides alone. Consult HIMS group, regular diet, CBC and BMP in the a.m. PT, OT, speech, language, case management to have evaluations and recommendations. She did have some trouble swallowing pills, we will do a bedside swallow. If needed a video swallow. Plan of care is pending. We will team her weekly and make changes to plan of care as needed. <ELECTRONICALLY SIGNED> By: Mindy Mcgee DO 03/14/18 1521 1200 [id number] Mcgee DO /nt
--- NOTE | 2018-03-14 16:36 | NUR ---
ASSUMMED CARE OF PT AT 0730, PT ALERT AND ORIENTED, TRANSFERS WITH SBA GB WALKER CUEING, MOVES SLOWLY, TAKING FOOD AND FLUIDS WELL, AMBULATES INTO BATHROOM, DENIES PAIN, HAS SLIGHT TREMORS IN ARMS AT TIMES, PARTICIPATED IN ALL THERAPIES, HOURLY ROUNDING COMPLETE, ASSESSMENT COMPLETE, WILL CONTINUE TO MONITOR.
--- NOTE | 2018-03-14 17:46 | NUR ---
No needs, questions, or concerns expressed by pt or pt family at this time in preparation for team conference tomorrow. SW to continue to follow to assist with safe dc planning.
[2018-03-14 19:35] VITALS: BP 149/68
--- NOTE | 2018-03-14 19:35 | NUR ---
RESTING QUIETLY IN BED. DENIES DISCOMFORT. IN GOOD SPIRITS. SMILING. SNACK PROVIDED.
--- NOTE | 2018-03-15 05:48 | NUR ---
TAKES MEDICATIONS WHOLE ONE AT A TIME WITH VANILLA PUDDING AT BEDTIME. HAS SEVERAL MEDICATIONS AT NIGHT AND HAS TWO DEPAKOTES WHICH ARE BIG. AMBULATES TO THE BATHROOM WITH SBA, GAITBELT, WALKER. DID OWN HYGIENE AND CLOTHING ADJUSTMENTS. RESTED SOUNDLY DURING THE NIGHT. HOURLY ROUNDING IN PROGRESS.
--- NOTE | 2018-03-15 08:24 | NUR ---
I have reviewed the documentation by from MAXIMO MOY to 03/15/18 and I concur with it. MICKY CRAWFORD.
[2018-03-15 09:00] VITALS: BP 96/58
--- NOTE | 2018-03-15 14:00 | NUR ---
SW met with pt to review team conference summary. Plan for pt to dc home alone with family support available on Wednesday 03/21. And services to follow. Pt okay with plan. SW discussed arranging family to meet with therapists and pt requested SW call pt brother. SW called pt brother and reviewed team conference summary and scheduled family training for at 9:30 am. SW to continue to follow to assist with safe dc planning.
--- NOTE | 2018-03-15 18:13 | NUR ---
PT HAS PARTICIPATED WITH THERAPIES AND AMBULATES WITH STEADY GAIT WITH WALKER AND SBA. PT DENIES PAIN. PT CALLS FOR ASSIST TO BATHROOM AND VOIDS WELL AND IS ABLE TO CLEANSE SELF AND ADJUST CLOTHING.PT GOES TO DINNINGROOM FOR MEALS AND CALLS FOR ASSIST NEEDS. PT REMAINS ALERT AND ORIENTATED AND PROGRESSES TOWARDS GOALS. HOURLY ROUNDING CONTINUES.
[2018-03-15 19:50] VITALS: BP 124/61
--- NOTE | 2018-03-15 19:50 | NUR ---
RESTING QUIETLY IN BED. DENIES DISCOMFORT. TOOK MEDS WHOLE ONE AT A TIME WITH VANILLA PUDDING FOLLOWED WITH WATER WITH EXTRA TIME.
--- NOTE | 2018-03-16 05:58 | NUR ---
UP TO BEDSIDE COMMODE LAST NIGHT AT 2049 TO VOID. REMINDED PATIENT THAT PREVIOUS NIGHT SHE VOIDED IN THE TOILET. PATIENT STATED THAT SHE HAD BEEN TOLD SHE IS A HIGH FALL RISK AND INSISTED ON USING THE BEDSIDE COMMODE. PATIENT UP AGAIN TO BEDSIDE COMMODE AT 0515 TO VOID. RESTED QUIETLY DURING THE NIGHT. REMINDED PATIENT LAST NIGHT THAT SHE HADN'T HAD A BM SINCE THE AND ENCOURAGED HER TO TAKE HER COLACE. PATIENT STATED THAT SHE WOULD TAKE IT TODAY. TRANSFERS WITH SBA, GAITBELT, WALKER, CUEING. DID LIFT LEGS INTO BED THIS MORNING WITHOUT ASSIST. HOURLY ROUNDING IN PROGRESS.
[2018-03-16 08:00] VITALS: BP 128/62
--- NOTE | 2018-03-16 19:00 | NUR ---
PT CALLS FOR ASSIST TO BATHROOM AND TRANSFERRS AND AMBULATES WITH SBA IF 1 WITH GAITBELT AND WALKER. PT TRANSFERRED TO APARTMENT AND IS REMINDED TO CALL FOR ASSIST WITH ALL AMBULATIONS. PT DENIES PAIN AND REMAINS ALERT AND ORIENTATED.PT PROGRESSES TOWARDS GOALS AND HOURLY ROUNDING CONTINUES.
[2018-03-16 20:28] VITALS: BP 137/56
--- NOTE | 2018-03-16 20:30 | NUR ---
SITTING UP IN RECLINER WITH LEGS ELEVATED. ASSISTED TO BEDSIDE COMMODE WITH SBA, GAITBELT, WALKER, CUEING. DENIES DISCOMFORT. IN A REGULAR BED NOW IN TRANSITIONAL LIVING APARTMENT. TOOK MEDS WHOLE ONE AT A TIME WITH VANILLA PUDDING FOLLOWED WITH WATER.
--- NOTE | 2018-03-17 05:38 | NUR ---
RESTED QUIETLY. NO COMPLAINTS VOICED. HOURLY ROUNDING IN PROGRESS.
[2018-03-17 11:38] VITALS: BP 106/62
--- NOTE | 2018-03-17 13:05 | NUR ---
AM ASSESSMENT AND VITAL SIGNS COMPLETED DOCUMENTED. PT HAS BEEN PLEASANT AND COOPERATIVE, ABLE TO COMPLETE MOST TASKS MOD I WITH EXTRA TIME AND SUPERVISION FOR SAFETY. FALL PRECAUTIONS AND HOURLY ROUNDING CONTINUE.
--- NOTE | 2018-03-17 16:59 | NUR ---
I have reviewed the documentation by MAXIMO MOY from February to 03/17/18 and I concur with it. MICKY CRAWFORD.
[2018-03-17 20:32] VITALS: BP 147/51
--- NOTE | 2018-03-18 02:43 | NUR ---
ASSUMED CARE @ 1937-03/17-TUE.SITS IN RECLINER WATCHING TV.WANTS TO GO TO BED NOW.INSTRUCTED TO TAKE HS MEDS WHILE IN RECLINER @ 2002.TAKES SMALL PILLS ONE @ A TIME & BIG PILLS BROKEN IN 10/20 W/ VANILLA PUDDING.LEFT HAND TREMORS PRESENT.EDEMA-+1 PITTING FEET.SBA TO BED @ 2014.HEELS OFF BED @ 2014.ON HOURLY ROUNDS.OVEN BAKER DOING ODD HOUR ROUNDS.
--- NOTE | 2018-03-18 05:31 | NUR ---
SLEEPING SINCE 2199.USED BSC X2 W/ SBA.TOOK ALL VANILLA PUDDING HS SNACK W/ HS MEDS.
[2018-03-18 09:30] VITALS: BP 97/56
--- NOTE | 2018-03-18 16:36 | NUR ---
ASSUMED CARE AT 1600. ALERT ORIENTED, PLEASANT COOPERATIVE. SITTING UP IN RECLINER AT BEDSIDE WITH LEGS ELEVATED. DENIES PAIN OR REQUESTS TRANSFERS WITH SBA G BELT WALKER. USES CALL LIGHT APPROPRIATELY FOR ASSIST.
[2018-03-18 20:29] VITALS: BP 109/61
--- NOTE | 2018-03-19 01:04 | NUR ---
ASSUMED CARE @ 1927-03/18-SAT.SITS IN RECLINER BY WINDOW.CHAIR ALARM ALREADY ON @ 1927.WANTS TO GO TO BED EARLY.ALL HS MEDS GIVEN @ 1999 W/ TIEN LEBLANC. SBA FOR ALL TRansfers & TOILETING.ASSISTED TO BED @ 2014.heels off bed.HAND TREMORS PRESENT.ON HOURLY ROUNDS.CONSUMER SAFETY INSPECTOR DOING ODD HOUR ROUNDS.
--- NOTE | 2018-03-19 05:21 | NUR ---
SLEEPING SINCE 2199.BRP W/ SBA X2.TOOK ALL VANILLA PUDDING W/ HS MEDS HS SNACK.BP ON -.BP @ 2028-.
--- NOTE | 2018-03-19 05:22 | NUR ---
NURSE'S NOTES ENTERED @ 7446-ARE END OF SHIFT PROGRESS NOTES.
[2018-03-19 08:04] VITALS: BP 144/71
--- NOTE | 2018-03-19 18:53 | NUR ---
PT CALLS FOR ASSIST TO BATHROOM AND HAS BEEN UP TO RECLINER DURING DAY. PT HAS C/O BACK ACHE SINCE SLEEPING IN APARTMANT BED. HOSPITAL BED PLACED IN ROOM PER PT REQUEST. PT REMAINS ALERT AND ORIENTATED AND PROGRESSES TOWARDS GOALS,HOURLY ROUNDING CONTINUES.
[2018-03-19 20:27] VITALS: BP 109/76
--- NOTE | 2018-03-20 01:25 | NUR ---
ASSUMED CARE @ 1917-03/19-TUESDAY.SITS IN RECLINER W/ CHAIR ALARM ALREADY ON @ 1917.HAD DIFFICULTY SWALLOWING LAST PILL @ 1999- EVEN W/ VANILLA PUDDING & BROKEN IN 10/20.SBA FOR ALL TOILETING & TRANSFERS.HEELS OFF BED @ 2019.BED ALARM PUT ON @ 2019.ON HOURLY ROUNDS.BLOOD COORDINATOR DOING ODD HOUR ROUNDS.HAND TREMORS PRESENT.
--- NOTE | 2018-03-20 05:31 | NUR ---
SLEEPING SINCE 2199.BRP W/ SBA X1.TOOK ALL VANILLA PUDDING W/ HS MEDS HS SNACK.
[2018-03-20 08:00] VITALS: BP 105/55
--- NOTE | 2018-03-20 15:28 | NUR ---
ASSUMED CARE AT 0730. ALERT ORIENTED PLEASANT COOPERATIVE. HX OF TBI CONCUSSION. TRANSFERS WITH SBA G BELT WALKER AMBULATES TO BR TO VOID ABLE TO DO HYGEINE AND CLOTHING ADJUSTMENTS. USES CALL LIGHT APPROPPRIATELY FOR ASSIST CHAIR ALARM FOR PT. SAFETY. DENIES PAIN OR REQUESTS.
--- NOTE | 2018-03-20 16:28 | NUR ---
SW spoke with pt about dc planning for tomorrow and need for assistance/supervision at least the first day or two at home. HH services to follow. JUAN A spoke with pt brother who confirmed that he will have someone, probably pt sister, to stay with pt at dc for a while. Pt preference for [facility], [phone] fax [phone]. JUAN A faxed final orders and med list to . No other dc needs. Pt sister to provide pt ride home.
[2018-03-20 16:45] VITALS: BP 165/55
[2018-03-20 19:56] VITALS: BP 120/40
[2018-03-20 22:52] VITALS: BP 165/55
--- NOTE | 2018-03-21 05:41 | NUR ---
ASSUMED PT CARE AT 1930. PT ALERT AND ORIENTED, PLEASANT AND COOPERATIVE WITH CARES. HX OF TBI CONCUSSION. UP WITH SBA, GAIT BELT AND WALKER. PT UP TO BR TO VOID TWICE THIS SHIFT. PT DOES OWN PERICARES AND CLOTHING ADJUSTMENTS BUT NEEDS EXTRA TIME. TAKES PILLS IN VANILLA PUDDING, LARGER PILLS SPLIT INTO QUARTERS. TAKES EXTRA TIME. PT TO BE DISCHARGED HOME TODAY. USES CALL LIGHT APPROPRIATELY. BED ALARM ON FOR SAFETY. CALL LIGHT AND FREQUENTLY USED ITEMS WITHIN REACH. HOURLY ROUNDING IN PROGRESS, WILL CONTINUE TO MONITOR.
[2018-03-21 08:00] VITALS: BP 102/59
[2018-03-21] MEDS ORDERED: SYNTHROID150 MCG PO (10:53)
[2018-03-21 13:55] VITALS: BP 165/55
--- NOTE | 2018-03-21 14:11 | NUR ---
ASSUMED CARE AT 0730. ALERT ORIENTED PLEASANT COOPERATIVE. HX OF TBI CONCUSSION. TRANSFERS WITH SBA G BELT WALKER AMBULATES TO BR VOIDS AND DOES HYGEINE AND CLOTHING ADJUSTMENT. DENIES PAIN OR REQUESTS. USES CALL LIGHT APPROPRIATELY FOR ASSIST CHAIR ALARM FOR PT. SAFETY. FEEDS SELF AND TAKES MEDS WITHOUT DIFFICULTY. PARTICIPATING IN THERAPIES THROUGHOUT THE MORNING. PT. VERBALIZED UNDERSTANDING OF DISCHARGE INSTRUCTIONS ALLOWED TIME FOR ANY QUESTIONS PT. MIGHT HAVE. BELONGINGS HOME MED AND DISCHARGE INSTRUCTIONS WERE SENT WITH PT. FAMILY HERE TO TRANSPORT HOME WITH HOME HEALTH.
--- NOTE | 2018-05-10 11:22 | D ---
[facility] [address] [place] [address] DISCHARGE SUMMARY Name: DOMINICK AGRAWAL Room: [address] IN .R.#: [id number] Admission: 03/02/18 Attend Phys: Mindy Mcgee DO Discharge: 03/21/18 Date of : 50 Report #: [id number] THIS REPORT FOR: //name// CC: Mindy Steel DATE OF SERVICE: 03/21/2018 DISCHARGE DIAGNOSES: Traumatic brain injury with post-concussive syndrome, status post fall from standing height. DISCHARGE DISPOSITION: To home with home health PT, OT, nursing and speech. Primary care physician to see the patient within 1 week, Neurology to see her within 2-4 weeks. Notifications for physician were given. Continue on same regular heart healthy diet. She did require a 24/7 supervision for the first 2 days or so after discharge because she did have a little bit of confusion and disorientation at night as well as fall precautions. MEDICATIONS: Reviewed and reconciled by myself and are available in the MAR. Any medications that were needed were given for one month's time. PHYSICAL EXAMINATION: GENERAL: The patient is alert, oriented, no apparent distress. VITAL SIGNS: Reviewed and are stable. HEENT: Head atraumatic, normocephalic. Pupils equal, round, reactive. ABDOMEN: Soft, nontender, nondistended. NEUROLOGIC: Cranial nerves 2-12 are grossly intact with no focal neuro deficits, 5/5 strength in the bilateral upper and lower extremities. SKIN: Warm and dry. No rashes or lesions noted. <ELECTRONICALLY SIGNED> By: Mindy Mcgee DO 05/10/18 1122 1539 [id number] Mcgee DO /nt
== END 2018-03-21 13:55 | disposition home health service (06) | DRG 103 ==
LOC: M.REH 16:07
PROVIDERS: Family Medicine; ADMIT Physical Medicine & Rehabilitation
DX: F07.81 Postconcussional syndrome (principal); I48.92 Unspecified atrial flutter; I10 Essential (primary) hypertension; I48.91 Unspecified atrial fibrillation; M19.90 Unspecified osteoarthritis, unspecified site; G44.309 Post-traumatic headache, unspecified, not intractable; E78.5 Hyperlipidemia, unspecified; K21.9 Gastro-esophageal reflux disease without esophagitis; D64.9 Anemia, unspecified; R53.81 Other malaise; E03.9 Hypothyroidism, unspecified; F25.0 Schizoaffective disorder, bipolar type; M54.9 Dorsalgia, unspecified; M54.2 Cervicalgia; M47.894 Other spondylosis, thoracic region; M47.896 Other spondylosis, lumbar region; R53.1 Weakness; G31.84 Mild cognitive impairment of uncertain or unknown etiology; R29.6 Repeated falls; F25.9 Schizoaffective disorder, unspecified; R26.9 Unspecified abnormalities of gait and mobility; Z96.652 Presence of left artificial knee joint; Z90.49 Acquired absence of other specified parts of digestive tract; Z88.6 Allergy status to analgesic agent; Z88.1 Allergy status to other antibiotic agents; Z91.041 Radiographic dye allergy status; Z91.040 Latex allergy status; Z88.0 Allergy status to penicillin; Z91.013 Allergy to seafood; Z88.2 Allergy status to sulfonamides; Z88.8 Allergy status to other drugs, medicaments and biological substances; Z91.018 Allergy to other foods; Z82.49 Family history of ischemic heart disease and other diseases of the circulatory system; Z79.01 Long term (current) use of anticoagulants; Z86.010 Personal history of colon polyps

== ENCOUNTER 2018-04-09 12:24 | Emergency (ER) | payer MEDICARE, MEDICAID ==
[~2018-04-09] VITALS: Ht 170.2 cm; Wt 99.9 kg
[~2018-04-09 12:24] MED LIST changes: +SYNTHROID150 MCG PO
[2018-04-09 13:19] LABS: ABSOLUTE BASOPHILS 0.1 thou/uL (0.0-0.2); ABSOLUTE EOSINOPHILS 0.1 thou/uL (0.0-0.7); ABSOLUTE LYMPHOCYTES 1.8 thou/uL (0.8-5.3); ABSOLUTE MONOCYTES 0.7 thou/uL (0.0-1.2); ABSOLUTE NEUTROPHILS 4.7 thou/uL (1.6-8.1); BASOPHILS 0.8 %; EOSINOPHILS 0.8 %; LYMPHOCYTES 24.9 %; MCH 30.3 pg (26.0-34.0); MCHC 33.4 g/dL (28.0-37.0); MCV 90.7 fL (80.0-100.0); MONOCYTES 9.4 %; MPV 9.7 fl. (7.2-11.1); NUCLEATED RBCS 0 /100WBC; PLATELET COUNT* 152 thou/uL (150-400); POLYS 64.1 %; RBC 3.64 mil/uL (4.20-5.00); RDW-CV 17.2 % (10.5-14.5); WBC 7.3 thou/uL (4.0-11.0)
[2018-04-09 13:33] LABS: CALCIUM 8.5 mg/dL (8.5-10.1); POTASSIUM 3.1 mmol/L (3.5-5.1)
[2018-04-09 13:44] LABS: ALBUMIN 2.3 g/dL (3.4-5.0); MAGNESIUM 2.2 mg/dL (1.8-2.4); TOTAL BILIRUBIN 0.4 mg/dL (<0.1-1.0); TOTAL PROTEIN 5.9 g/dL (6.4-8.2)
[2018-04-09 14:19] LABS: URINE BILIRUBIN NEGATIVE (Negative); URINE BLOOD TRACE (Negative); URINE CLARITY CLEAR; URINE COLOR YELLOW; URINE GLUCOSE-RANDOM NEGATIVE (Negative); URINE KETONES NEGATIVE (Negative); URINE LEUKOCYTES 1+ (Negative); URINE NITRITE NEGATIVE (Negative); URINE PROTEIN NEGATIVE (Negative); URINE SPECIFIC GRAVITY <= 1.005 (1.005-1.030); URINE UROBILINOGEN 0.2 E.U./dl (0.2-1.0)
[2018-04-09 14:44] LABS: BACTERIA >30 Many /HPF (None Seen); HYALINE CASTS 4-10 Moderate /LPF (None Seen); MUCUS 4-6 Moderate strn/LPF (None Seen); SQUAMOUS >10 Many /LPF (0-3); URINE RBC 0-2 Rare /HPF (0-2)
[2018-04-09 14:45] LABS: CRYSTALS None Seen /LPF (None Seen); URINE WBC 0-5 Rare /HPF (0-5)
[2018-04-09 16:31] VITALS: BP 147/86
[2018-04-09] MEDS ORDERED: MACROBID 100 M100 M3 PO (16:52)
--- NOTE | 2018-04-10 10:33 | EKG ---
[place] [address] ELECTROCARDIOGRAM REPORT Name: DOMINICK AGRAWAL Room: [facility]#: [id number] Admission: 04/09/18 Attend Phys: Discharge: 04/09/18 Date of : 50 Report #: [id number] THIS REPORT FOR: //name// [facility] ED Test Date: 2018-04-09 Test Time: 15:52:59 Pat Name: DOMINICK AGRAWAL Department: Room: Gender: F Accelerator Technician: PARVIZ : 1950 Requested By: Victor M Bliss Order Number: [id number] MD: Kirk Bradley Measurements Intervals [place] Rate: 55 P: LA: QRS: -22 QRSD: 118 T: 21 QT: 470 QTc: 450 Interpretive Statements sinus rhythm Nonspecific intraventricular conduction delay Borderline low voltage, extremity leads artifact noted Compared to ECG 02/28/2018 07:24:03 no change Electronically Signed On 04-10-2018 10:33:19 CDT by Kirk Bradley [email or web address] <ELECTRONICALLY SIGNED> By: Kirk Bradley MD, [facility] 04/10/18 1033 D: [id number] Kirk Bradley MD, FACC /EPI
== END 2018-04-09 17:03 | disposition home or self-care (01) ==
LOC: M.ERS 12:24
PROVIDERS: Physician Assistant Surgical
DX: R60.0 Localized edema (principal); E87.6 Hypokalemia; N39.0 Urinary tract infection, site not specified; M19.90 Unspecified osteoarthritis, unspecified site; I10 Essential (primary) hypertension; E03.9 Hypothyroidism, unspecified; F25.9 Schizoaffective disorder, unspecified; Z88.1 Allergy status to other antibiotic agents; Z88.5 Allergy status to narcotic agent; Z88.6 Allergy status to analgesic agent; Z91.013 Allergy to seafood; Z88.0 Allergy status to penicillin; Z88.2 Allergy status to sulfonamides; Z91.018 Allergy to other foods; Z91.040 Latex allergy status; Z88.8 Allergy status to other drugs, medicaments and biological substances

== ENCOUNTER → 2018-04-11 | Outpatient (CLI) | payer MEDICARE, MEDICAID ==
[~2018-04-11] MED LIST changes: +CALCIUM 500 +1 EAC5 PO; +FOSAMAX 70 MG T70 MG PO; +LASIX 20 MG TAB20 MG PO; +LIDOCAINE1 EACH TRANSDERM; +MACROBID 100 M100 M1 PO; +MACROBID 100 M100 M3 PO; +TRAMADOL 50 MG50 MG PO; +TYLENOL325 MG PO
== END ==
LOC: M.LAB 16:14
DX: E87.6 Hypokalemia (principal)

== ENCOUNTER → 2018-04-28 | Outpatient (CLI) | payer MEDICARE, MEDICAID ==
[2018-04-28 14:44] LABS: HEMATOCRIT 34.2 % (37.0-47.0); HEMOGLOBIN 11.3 gm/dL (12.0-15.0); MCH 30.4 pg (26.0-34.0); MCHC 33.1 g/dL (28.0-37.0); MCV 91.9 fL (80.0-100.0); MPV 9.6 fl. (7.2-11.1); RBC 3.72 mil/uL (4.20-5.00); RDW-CV 17.8 % (10.5-14.5); WBC 5.9 thou/uL (4.0-11.0)
[2018-04-28 14:45] LABS: URINE BILIRUBIN NEGATIVE (Negative); URINE BLOOD NEGATIVE (Negative); URINE CLARITY CLEAR; URINE COLOR YELLOW; URINE GLUCOSE-RANDOM NEGATIVE (Negative); URINE KETONES TRACE (Negative); URINE LEUKOCYTES NEGATIVE (Negative); URINE NITRITE NEGATIVE (Negative); URINE PROTEIN TRACE (Negative)
[2018-04-28 15:05] LABS: ALBUMIN 2.6 g/dL (3.4-5.0); ALKALINE PHOSPHATASE 68 U/L (46-116); ANION GAP 3 mmol/L (7-16); BUN 19 mg/dL (7-18); CALCIUM 8.3 mg/dL (8.5-10.1); CHLORIDE 105 mmol/L (98-107); CHOLESTEROL 152 mg/dL (<200); CO2 29 mmol/L (21-32); CREATININE 1.2 mg/dL (0.6-1.3); GLUCOSE 89 mg/dL (70-99); HDL CHOLESTEROL 54 mg/dL (>40); LDL CHOLESTEROL 76 mg/dL (<100); POTASSIUM 3.5 mmol/L (3.5-5.1); SGOT 16 U/L (15-37); SGPT 16 U/L (30-65); SODIUM 137 mmol/L (136-145); TC:HDL 2.8 Ratio (Not establshd); TOTAL BILIRUBIN 0.4 mg/dL (<0.1-1.0); TOTAL PROTEIN 6.6 g/dL (6.4-8.2); TRIGLYCERIDE 113 mg/dL (<150); VLDL 23 mg/dL (<40)
[2018-04-28 15:07] LABS: SERUM ASSESSMENT CLEAR
== END ==
LOC: M.LAB 14:03
DX: R41.0 Disorientation, unspecified (principal); R41.3 Other amnesia; I48.91 Unspecified atrial fibrillation; E03.9 Hypothyroidism, unspecified; M19.90 Unspecified osteoarthritis, unspecified site; I11.9 Hypertensive heart disease without heart failure; Z79.899 Other long term (current) drug therapy

== ENCOUNTER 2018-05-04 06:48 | Inpatient (IN) | payer MEDICARE, MEDICAID ==
[~2018-05-04] VITALS: Ht 170.2 cm; Wt 103.0 kg
[~2018-05-04 06:48] MED LIST changes: -CALCIUM 500 +1 EAC5 PO; -FOSAMAX 70 MG T70 MG PO; -LASIX 20 MG TAB20 MG PO; -LIDOCAINE1 EACH TRANSDERM; -MACROBID 100 M100 M1 PO; -TRAMADOL 50 MG50 MG PO; -TYLENOL325 MG PO
[2018-05-04 06:50] VITALS: BP 112/64
[2018-05-04 07:29] LABS: ABSOLUTE LYMPHOCYTES 1.6 thou/uL (0.8-5.3); ABSOLUTE MONOCYTES 0.9 thou/uL (0.0-1.2); ABSOLUTE NEUTROPHILS 5.2 thou/uL (1.6-8.1); BASOPHILS 0.5 %; EOSINOPHILS 0.4 %; HEMATOCRIT 31.9 % (37.0-47.0); LYMPHOCYTES 20.6 %; MCH 31.2 pg (26.0-34.0); MCHC 34.5 g/dL (28.0-37.0); MCV 90.4 fL (80.0-100.0); MONOCYTES 11.6 %; MPV 10.4 fl. (7.2-11.1); NUCLEATED RBCS 0 /100WBC; PLATELET COUNT* 161 thou/uL (150-400); POLYS 66.9 %; RBC 3.53 mil/uL (4.20-5.00); RDW-CV 17.6 % (10.5-14.5); WBC 7.8 thou/uL (4.0-11.0)
[2018-05-04 07:36] LABS: ANION GAP 6 mmol/L (7-16); BUN 11 mg/dL (7-18); CALCIUM 8.6 mg/dL (8.5-10.1); CHLORIDE 100 mmol/L (98-107); CO2 27 mmol/L (21-32); CREATININE 0.9 mg/dL (0.6-1.3); GLUCOSE 78 mg/dL (70-99); POTASSIUM 4.1 mmol/L (3.5-5.1); SODIUM 133 mmol/L (136-145)
[2018-05-04 07:40] LABS: PROTIME 10.2 Seconds (9.20-11.50)
[2018-05-04 07:49] LABS: ALBUMIN 2.3 g/dL (3.4-5.0); ALKALINE PHOSPHATASE 62 U/L (46-116); LIPASE 75 U/L (73-393); NT-PRO BRAIN NAT PEPTIDE 653 pg/mL (<300); SGOT 23 U/L (15-37); SGPT 14 U/L (30-65); TOTAL BILIRUBIN 0.4 mg/dL (<0.1-1.0); TOTAL PROTEIN 6.3 g/dL (6.4-8.2); TROPONIN-I LEVEL <0.06 ng/mL (<0.06)
[2018-05-04 08:03] LABS: URINE BILIRUBIN NEGATIVE (Negative); URINE BLOOD NEGATIVE (Negative); URINE CLARITY CLEAR; URINE COLOR YELLOW; URINE GLUCOSE-RANDOM NEGATIVE (Negative); URINE KETONES TRACE (Negative); URINE LEUKOCYTES-REFLEX TRACE (Negative); URINE NITRITE-REFLEX NEGATIVE (Negative); URINE PROTEIN NEGATIVE (Negative); URINE SPECIFIC GRAVITY <= 1.005 (1.005-1.030); URINE UROBILINOGEN 0.2 E.U./dl (0.2-1.0)
--- NOTE | 2018-05-04 08:40 | NUR ---
BARNEY NOTIFIED UPON PT RETURN FROM CT. PT CONNECTED TO MONITOR
[2018-05-04] MEDS ORDERED: ASPIRIN325 PO (09:23)
[2018-05-04 10:26] VITALS: BP 112/62
[2018-05-04 10:51] VITALS: BP 108/80
--- NOTE | 2018-05-04 11:08 | EKG ---
[place] [address] ELECTROCARDIOGRAM REPORT Name: DOMINICK AGRAWAL Room: [address] IN R#: [id number] Admission: 05/04/18 Attend Phys: Shazia Kirkpatrick MD Discharge: Date of : 50 Report #: [id number] THIS REPORT FOR: //name// [facility] ED Test Date: 2018-05-04 Test Time: 07:41:59 Pat Name: DOMINICK AGRAWAL Department: Room: Gender: F Child And Adolescent Psychologist: : 1950 Requested By: Beverly Downing Order Number: [id number] MD: Bipin Francois Measurements Intervals [place] Rate: 53 P: 20 MS: 135 QRS: -12 QRSD: 97 T: 24 QT: 459 QTc: 431 Interpretive Statements Sinus rhythm Compared to ECG 04/09/2018 15:52:59 Intraventricular conduction delay no longer present Electronically Signed On 05-04-2018 11:08:06 CDT by Bipin Francois [email or web address] <ELECTRONICALLY SIGNED> By: Bipin Francois MD, [facility] 05/04/18 1108 0741 [id number] Bipin Francois MD, [facility] /EPI
--- NOTE | 2018-05-04 13:16 | NUR ---
ASSUMED CARE OF PATIENT AFTER ADMISSION FROM ED AT 1045. ALERT AND ORIENTED X4. ADMISSION HISTORY AND ASSESSMENT COMPLETED AND CHARTED. VSS ON ROOM AIR, 02 PROVIDED AT 2 LITERS IF NEEDED FOR SOA. PATIENT HAD MINIMAL COMPLAINTS OF PAIN, LIDOCAIN PATCH APPLIED TO LOWER BACK. FLUIDS INFUSING ORDERED, IV REMAINS PATENT. HOURLY ROUNDS MANITAINED WHILE PATIENT WAS ON THIS UNIT. CHANGE STATUS ORDER ENTERED BY DOCTOR TOBAR AND PATIENT TRANSFERRED TO TELEMETRY AT 1300, REPORT GIVEN TO NESSA BYRD.
[2018-05-04 14:09] VITALS: BP 105/39
--- NOTE | 2018-05-04 14:10 | NUR ---
PATIENT TRANSFERRED FROM [facility]. REPORT RECEIVED FROM ROCHELLE MOSER. PATIENT ALERT AND ORIENTED X4. PLACED ON LOAN REVIEW MANAGER, NSR NOTED. IVF INFUSING. VITALS STABLE. PATIENT WENT FOR VQ SCAN, AWAITING RESULTS.
--- NOTE | 2018-05-04 17:03 | NUR ---
PATIENT TRANFERRED FROM [facility] THIS AFTERNOON. NO COMPLAINTS OF PAIN. AWAITING [facility] TO ROUND ON PATIENT. PATIENT UTILIZING BEDPAN, VOIDING ADEQUATE AMOUNTS OF URINE. IVF INFUSING.
[2018-05-04 20:00] VITALS: BP 136/59
[2018-05-04 23:45] VITALS: BP 115/50
[2018-05-05 04:00] VITALS: BP 96/39
--- NOTE | 2018-05-05 04:55 | NUR ---
ASSUMED PT CARE AT 1930, PT IS A&OX4, SHE CAN BE FORGETFUL. PT IS NPO AT THIS TIME. PT WAS CHOKING ON WATER WHEN TRYING MTO GIVE MEDICATIONS. PT HAS IVF INFUSING PER MAR. PT HAS A FRACTURE OF THE T12. PT IS BEDREST AT THIS TIME. VOIDS PER BEDPAN. PT IS TRACING NSR/SB ON THE MONITOR, ON 2L NC. BED IN LOW POSITION, CALL LIGHT IN REACH, BED ALARM ON, YELLOW ARM BAND AND SOCKS IN PLACE. HOURLY ROUNIDNG COMPLETED FOR PT SAFETY.
[2018-05-05 07:45] VITALS: BP 111/46
--- NOTE | 2018-05-05 10:41 | NUR ---
INITIAL ASSESSMENT: Pt evaluated for d/c planning needs. Reviewed chart. Pt was at [facility] inpatient rehab last month and returned to her independent apartment on 03/20/18 with [facility]. Pt has walker at home. Pt has brother and sister who are supportive and involved. Pt hopes to return home on d/c from hospital. Will remain available to assist as needed.
[2018-05-05 12:00] VITALS: BP 114/57
--- NOTE | 2018-05-05 15:08 | NUR ---
RECEIVED CONSULT FOR POSSIBLE REHAB ADMISSION. CONSULT HAS BEEN ACKNOWLEDGED BY EROSION CONTROL COORDINATOR AND DR. MÉNDEZ. PT ADMITTED AFTER FALL AND HAS T12 FRACTURE. PT/OT EVALUATIONS ARE PENDING. PATIENT CURRENTLY ON BEDREST UNTIL TLSO BRACE ARRIVES. WILL FOLLOW ALONG WITH PATIENT TO SEE IF QUALIFIES AND HAS NEED FOR ACUTE REHAB ONCE THERAPY EVALUATIONS ARE ABLE TO BE COMPLETED. THANK YOU FOR THIS CONSULT.
[2018-05-05 16:00] VITALS: BP 140/53
--- NOTE | 2018-05-05 16:02 | NUR ---
PATIENT TURNED Q2. INCONTINENT OF LARGE AMOUNT OF URINE X 1 THIS SHIFT. PATIENT ASSISTED WITH MEALS D/T TREMORS. IN SERVICE EDUCATOR TACING SINUS RHYTHM. IV SL THIS AM. AWAITING TLSO BRACE FOR PATIENT. PT/OT PENDING BRACE FITTING. REHAB CONS.
[2018-05-05 20:00] VITALS: BP 99/51
[2018-05-06] VITALS (7 sets, daily range): BP systolic 87–109; BP diastolic 38–56
--- NOTE | 2018-05-06 02:06 | NUR ---
PT DROWSEY ORIENTED. PT HAVING A DIFFICULT TIME SWALLOWING DEPAKOTE DEPAKOTE. ER UNABLE TO CRUSH. PT STARTED COUGHING A WEAK COUGH THAT LASTED FOR APPROX 25MIN. DR TOBAR NOTIFIED. CXRAY TAKEN. DR TOBAR CALLED BACK WITH RESULTS OF CXRAY. LEVAQUIN ORDERED. PT UNABLE TO TAKE WITH DROMIDARONE. DR TOBAR NOTIFIED. NO FURTHER ORDERS AT THIS TIME. TELEMETRY SHOWS SB 50S. PAIN IN BACK 04/25. SCHEDULED [id number] GIVEN FOR THAT. TURNING Q 2 HRS. WILL CONTINUE TO MONITOR.
--- NOTE | 2018-05-06 06:34 | NUR ---
NO VOID THIS SHIFT. BLADDER SCAN SHOWED 558. DR TOBAR NOTIFIED. ORDER FOR STRAIGHT CATH. 700ML CLEAR YELLOW. FROM STRAIGHT CATH.
--- NOTE | 2018-05-06 12:41 | NUR ---
ASSUMED CARE OF PATIENT THIS AM AT 0730. PATIENT IS DROWSY, AND DIFFICULT TO AROUSE THIS AM. SHE DENIES PAIN WITH AM ASSESSMENT. PATIENT ASSISTED WITH MEALS AND ALL ADLS. TELE SHOWS SINUS JOSE. PATIENT TAKING HER MEALS WELL WITH ASSIST. NOON DOSE FOR TRAMADOL HELD. FAMILY IN TO SEE PATIENT TODAY AND THEY WERE CONCERNED ABOUT PATIENT'S MENTAL STATUS. DR TOBAR NOTIFIED. NO URINE OUTPUT SINCE NIGHT SHIFTS STRAIGHT CATH. WILL CONTINUE TO MONITOR COMFORT AND MENTAL STATUS. NO FALLS OR INJURY,
[2018-05-07 04:00] VITALS: BP 92/44
--- NOTE | 2018-05-07 06:04 | NUR ---
PT WITHOUT VOID THIS SHIFT. STRAIGHT CATH WITH 500MLS CLEAR YELLOW.
[2018-05-07 08:00] VITALS: BP 94/45
--- NOTE | 2018-05-07 11:32 | NUR ---
ASSUMED CARE OF PATIENT THIS AM AT 0730. PATIENT IS ALERT AN ORIENTED X 2 TO 3. SHE C/O PAIN IN HER BACK. PATIENT'S BP CONTINUES LOW THIS AM. DR TOBAR NOTIFIED. PASCUAL CATH INSERTED AND PLACED TO DD PER ORDER. IV FLUIDS CONTINUED AT AN ADJUSTED RATE. SEE ORDERS. TELE SHOWS CONTINUED SINUS JOSE. MEDICATION DOSES VERIFIED WITH PATIENT'S SISTER. PT IN TO SEE PATIENT. BACK BRACE APPLIED AND PATIENT ASSISTED UP TO THE CHAIR WITH WALKER. PATIENT MEDICATED FOR PAIN X 1 PO. ASSISTED WITH MEALS AND ADL. WILL CONTINUE TO MONITOR.
[2018-05-07 11:40] VITALS: BP 109/77
[2018-05-07 15:41] VITALS: BP 101/44
[2018-05-07 20:00] VITALS: BP 133/58
--- NOTE | 2018-05-07 20:00 | NUR ---
RECEIVED REPORT AND ASSUMED CARE OF PT, ASSESSMENT COMPLETED. PT CONFUSED AND RESTLESS, TREMORS OF ARMS NOTED. O2 ON AT 2L/NC, HOB ELEVATED. TELEMETRY ON SHOWING SR TO SB. PT CONSTANTLY SAYING SHE NEEDS TO GO TO THE BR. REASSURANCE GIVEN THAT SHE HAS A PASCUAL IN. WILL CONT TO MONITOR AND ASSIST NEEDED.
[2018-05-08] VITALS: BP 124/52
[2018-05-08 04:00] VITALS: BP 123/59
[2018-05-08 05:06] LABS: HEMATOCRIT 32.1 % (37.0-47.0); HEMOGLOBIN 10.8 gm/dL (12.0-15.0); MCH 31.2 pg (26.0-34.0); MCHC 33.7 g/dL (28.0-37.0); MCV 92.5 fL (80.0-100.0); MPV 10.2 fl. (7.2-11.1); RBC 3.47 mil/uL (4.20-5.00); RDW-CV 17.6 % (10.5-14.5); WBC 9.2 thou/uL (4.0-11.0)
[2018-05-08 05:31] LABS: ALBUMIN 1.7 g/dL (3.4-5.0); CALCIUM 8.2 mg/dL (8.5-10.1); CREATININE 0.7 mg/dL (0.6-1.3); MAGNESIUM 1.7 mg/dL (1.8-2.4); POTASSIUM 3.7 mmol/L (3.5-5.1); TOTAL BILIRUBIN 0.3 mg/dL (<0.1-1.0); TOTAL PROTEIN 5.3 g/dL (6.4-8.2)
--- NOTE | 2018-05-08 07:37 | NUR ---
REMAINS CONFUSED CALLING OUT DURING NIGHT THAT SHE NEEDED TO GO TO THE BR. REMINDED OF CATHETER IN PLACE. ABLE TO TAKE PO MEDS CRUSHED AND IN APPLESAUCE WITHOUT COUGHING OR CHOKING. HOB ELEVATED, O2 ON. ASSESSMENT UNCHANGED. TELEMETRY CONT TO SHOW SB TO LOW SR. HS GOALS OF REST AND SAFETY ACHIEVED. HOURLY ROUNDING OBSERVED. REPOSITIONED Q 2HR.
[2018-05-08 08:10] VITALS: BP 130/50
--- NOTE | 2018-05-08 10:06 | NUR ---
PT UP TO CHAIR WITH O.T. AND P.T. WEARING TSLO BRACE. PT EATING BREAKFAST AND REPORTS PAIN IS BETTER AFTER PAIN MAD GIVEN. NO OTHER C/O CURRENTLY.
[2018-05-08 11:43] VITALS: BP 124/65
--- NOTE | 2018-05-08 13:24 | NUR ---
CONTINUING TO FOLLOW PATIENT ALONG WITH DR. MÉNDEZ. PATIENT EVALUATED AND SEEN BY PT/OT AND HAS REHAB NEEDS. [facility] EVALUATION IS PENDING. PATIENTS PLOF WAS MOD I/I AND LIVES ALONE. FEEL PATIENT WOULD BENEFIT FROM ACUTE REHAB ONCE MEDICALLY STABLE. SPOKE WITH WILLARD CARROLL AND INFORMED OF ACCEPTANCE TO REHAB ONCE MEDICALLY STABLE.
[2018-05-08 15:56] VITALS: BP 150/74
--- NOTE | 2018-05-08 17:00 | NUR ---
PT UP TO CHAIR WITH ASSIST X1. WEARS TSLO WHEN OOB. PT DENIES PAIN CURRENTLY. FAMILY VISITING AT BEDSIDE.
[2018-05-08 20:00] VITALS: BP 141/58
[2018-05-09] VITALS: BP 140/67
[2018-05-09 04:00] VITALS: BP 167/70
--- NOTE | 2018-05-09 05:17 | NUR ---
ASSUMED PT CARE AT 1930, PT IS A&OX1, PT HAS BEEN DROWSY AND SLEEPY ALL SHIFT. PT IS TRACING SB ON THE MONITOR, ON RA SATTING MID TO HIGH 90'S. PT HAS IVF INFUSING PER MAR. PT DENIES ANY PAIN OR NEEDS AT THIS TIME. PASCUAL TO DD DRAINING DARK YELLOW URINE. BED IN LOW POSITION, CALL LIGHT IN REACH, BED ALARM ON, YELLOW ARM BAND AND SOCKS IN PLACE. HOURLY ROUNDING COMPLETED FOR PT SAFETY.
[2018-05-09 07:58] VITALS: BP 142/66
--- NOTE | 2018-05-09 11:41 | NUR ---
ASSUMED CARE OF PT AT 0715. PT REMAINS A&O X1 TO SELF. PT HAS C/O BACK PAIN BUT DENIES THE NEED FOR PHARMACOLOGICAL INTERVENTION. LIDOCAINE PATCH APPLIED TO BACK, PT REPOSITIONED. PT VSS ON ROOM AIR. PASCUAL CATH DISCONTINUED. NURSIGN WILL MONITOR URINARY OUTPUT, AND MONITOR PT FOR COMFORT AND SAFTEY.
[2018-05-09 12:00] VITALS: BP 164/68
--- NOTE | 2018-05-09 12:35 | NUR ---
PT UP TO BEDSIDE COMMODE WITH GAIT BELT, WLAKER, AND ONE ASSIST. PT HAD A SMALL BM AND URINATED APROX. 350ML.
[2018-05-09] MEDS ORDERED: LIDOCAINE1 EACH TRANSDERM (12:38)
[2018-05-09] MEDS ORDERED: CLEOCIN HCL150 MG PO (12:38)
[2018-05-09] MEDS ORDERED: CALCIUM 500 +1 EAC5 PO (12:39)
[2018-05-09] MEDS ORDERED: TRAMADOL 50 MG50 MG PO (12:39)
[2018-05-09] MEDS ORDERED: FOSAMAX 70 MG T70 MG PO (12:40)
[2018-05-09 12:56] VITALS: BP 164/68
--- NOTE | 2018-05-09 14:57 | NUR ---
DC orders written for Pt. Pt to dc to [facility] acute rehab. Updated nurse and Pt. CM will update Pt's family. Faxed dc orders. Awaiting dc time from rehab spec. Following.
--- NOTE | 2018-05-09 15:55 | NUR ---
PT DISCHARGINH TO [facility] REHAB. IV AND CHILD [facility] WORKER REMOVED PRIOR DISCHARGE. REPORT CALLED TO JULISSA ON REHAB. ALL PERSONAL BELONGINGS SENT WITH PT AT TIME OF DISCHARGE. PT VSS AND NO C/O PAIN OR DISTRESS.
[2018-05-09 16:01] VITALS: BP 139/32
--- NOTE | 2018-05-25 12:46 | CON ---
[address] [address] CONSULTATION Name: DOMINICK AGRAWAL Room: [address] IN M.R.#: [id number] Admission: 05/04/18 Attend Phys: Shazia Kirkpatrick MD Discharge: 05/09/18 Date of : 50 Report #: [id number] THIS REPORT FOR: //name// CC: Shazia Steel REASON FOR CONSULTATION: Evaluation and recommendations regarding post-acute rehabilitation in a ____ female admitted for intractable back pain, lightheadedness, falls over the last couple of days with alterations in activities of daily living from her previous level of function from modified independent to independent with activities of daily living. Current level of function is minimum to moderate assistance of 1-2 depending on therapy, activity and time of day. She did have one fall, was not evaluated after that, but had a second fall and is now evaluated with other multiple medical comorbidities including a fracture of the T12 vertebra, history of near syncope, orthostatic hypotension, postconcussive syndrome and shortness of breath. She is participating with therapies at this time. PAST MEDICAL HISTORY: Abdominal pain, back pain, bradycardia, ____ bilateral lower extremities, fall x 2, fracture of T12, near syncope, neck pain, orthostatic hypotension, hypertension, post-concussive syndrome and shortness of breath. ALLERGIES: CEPHALEXIN, CEPHALOSPORIN, CODEINE, CORTISONE, DOXYCYCLINE, FISH PRODUCTS, IODINE, PENICILLIN, SEAFOOD, SULFA, AVOCADO, PENTAZOCINE, POLLEN, PREDNISOLONE, PROCAINE, LATEX, AZITHROMYCIN, CIPROFLOXACIN, FUROSEMIDE, HYDROCHLOROTHIAZIDE AND LEVOFLOXACIN. Vital signs, laboratories and diagnostics have all been reviewed. MEDICATIONS: Have been reviewed and are available in the MAR. PAST MEDICAL HISTORY: As per ____ PAST FAMILY HISTORY: Heart disease. SOCIAL HISTORY: No tobacco, alcohol or illicit drug use. REVIEW OF SYSTEMS: A 14-point review of systems is done and is negative except as mentioned in the HPI, specifically no fever, chest pain, shortness of breath, abdominal pain or distention. PHYSICAL EXAMINATION: GENERAL: Alert and oriented, in no apparent distress. VITAL SIGNS: Reviewed and are stable. HEENT: Head atraumatic and normocephalic. Pupils are equal, [place] [address] CONSULTATION Name: DOMINICK AGRAWAL Room: [address] IN [facility].#: [id number] Admission: 05/04/18 Attend Phys: Shazia Kirkpatrick MD Discharge: 05/09/18 Date of : 50 Report #: [id number] ABDOMEN: Soft, nontender and nondistended. NEUROLOGIC: Cranial nerves 2-12 are grossly intact. No focal neuro deficits. ASSESSMENT: 1. Recurrent dizziness. 2. Orthostatic. 3. Acute T12 fracture. 4. Schizoaffective disorder. 5. History of atrial fibrillation and hypertension. PLAN: 1. Recommend acute inpatient rehabilitation to facilitate safe discharge home. 2. PT, OT, speech, language, case management, nursing and HIMS should be following her on a regular basis. 3. We will see her daily until her post acute process is completed. <ELECTRONICALLY SIGNED> By: Mindy Mcgee DO 05/25/18 1246 1559 0034Mindy Mcgee DO /nt
== END 2018-05-09 16:15 | DRG 551 ==
LOC: M.ERS 06:48 → M.2W 09:28 → M.TBA-ER 09:28 → M.ORTHSURG 09:28 → M.2W 13:09
PROVIDERS: Emergency Medicine; ADMIT Internal Medicine
DX: S22.088A Other fracture of T11-T12 vertebra, initial encounter for closed fracture (principal); J69.0 Pneumonitis due to inhalation of food and vomit; E44.1 Mild protein-calorie malnutrition; Z68.35 Body mass index [BMI] 35.0-35.9, adult; F25.9 Schizoaffective disorder, unspecified; I10 Essential (primary) hypertension; I95.1 Orthostatic hypotension; E03.9 Hypothyroidism, unspecified; F03.90 Unspecified dementia, unspecified severity, without behavioral disturbance, psychotic disturbance, mood disturbance, and anxiety; I48.91 Unspecified atrial fibrillation; W06.XXXA Fall from bed, initial encounter; Z96.652 Presence of left artificial knee joint; Z79.01 Long term (current) use of anticoagulants; Y93.89 Activity, other specified; Y92.092 Bedroom in other non-institutional residence as the place of occurrence of the external cause; Y99.8 Other external cause status; Z88.8 Allergy status to other drugs, medicaments and biological substances; Z88.6 Allergy status to analgesic agent; Z88.1 Allergy status to other antibiotic agents; Z91.041 Radiographic dye allergy status; Z91.040 Latex allergy status; Z88.0 Allergy status to penicillin; Z91.013 Allergy to seafood; Z79.82 Long term (current) use of aspirin; Z79.2 Long term (current) use of antibiotics; Z79.899 Other long term (current) drug therapy; Z90.49 Acquired absence of other specified parts of digestive tract; Z82.49 Family history of ischemic heart disease and other diseases of the circulatory system

== ENCOUNTER 2018-05-09 15:40 | Inpatient (IN) | payer MEDICARE, MEDICAID ==
[~2018-05-09] VITALS: Ht 170.2 cm; Wt 95.4 kg
[~2018-05-09 15:40] MED LIST changes: +CALCIUM 500 +1 EAC5 PO; +FOSAMAX 70 MG T70 MG PO; +LIDOCAINE1 EACH TRANSDERM; +TRAMADOL 50 MG50 MG PO
[2018-05-09 18:45] VITALS: BP 141/65
[2018-05-09 20:30] VITALS: BP 146/56
[2018-05-10 04:49] LABS: CALCIUM 8.8 mg/dL (8.5-10.1); CREATININE 0.7 mg/dL (0.6-1.3); POTASSIUM 4.2 mmol/L (3.5-5.1)
[2018-05-10 05:59] LABS: HEMATOCRIT 31.9 % (37.0-47.0); HEMOGLOBIN 10.8 gm/dL (12.0-15.0); MCH 30.9 pg (26.0-34.0); MCHC 33.9 g/dL (28.0-37.0); MCV 91.2 fL (80.0-100.0); MPV 8.7 fl. (7.2-11.1); RBC 3.5 mil/uL (4.20-5.00); RDW-CV 17.6 % (10.5-14.5)
[2018-05-10 08:00] VITALS: BP 143/57
[2018-05-10 20:26] VITALS: BP 120/55
[2018-05-11 08:00] VITALS: BP 146/62
[2018-05-11 20:24] VITALS: BP 114/52
[2018-05-12 08:03] VITALS: BP 136/62
[2018-05-12 20:24] VITALS: BP 132/63
[2018-05-13 08:13] VITALS: BP 129/57
[2018-05-13 20:20] VITALS: BP 132/61
[2018-05-14 08:20] VITALS: BP 136/61
[2018-05-14 19:30] VITALS: BP 124/63
[2018-05-15 07:35] VITALS: BP 145/70
[2018-05-15 19:30] VITALS: BP 143/83
[2018-05-16 08:28] VITALS: BP 135/65
[2018-05-16 19:30] VITALS: BP 108/61
[2018-05-17 08:00] VITALS: BP 136/64
[2018-05-17 20:05] VITALS: BP 116/72
[2018-05-18 08:26] VITALS: BP 128/61
[2018-05-18 14:05] LABS: URINE BILIRUBIN NEGATIVE (Negative); URINE BLOOD 1+ (Negative); URINE CLARITY CLEAR; URINE COLOR YELLOW; URINE GLUCOSE-RANDOM NEGATIVE (Negative); URINE KETONES TRACE (Negative); URINE LEUKOCYTES-REFLEX 2+ (Negative); URINE NITRITE-REFLEX NEGATIVE (Negative); URINE PROTEIN 1+ (Negative); URINE SPECIFIC GRAVITY 1.025 (1.005-1.030); URINE UROBILINOGEN 0.2 E.U./dl (0.2-1.0)
[2018-05-18 14:24] LABS: CASTS None Seen /LPF (None Seen); CRYSTALS None Seen /LPF (None Seen); MUCUS 4-6 Moderate strn/LPF (None Seen); SQUAMOUS >10 Many /LPF (0-3); URINE RBC 3-10 Few /HPF (0-2); URINE WBC-REFLEX >25 Many /HPF (0-5)
[2018-05-18 19:30] VITALS: BP 121/78
[2018-05-19 08:00] VITALS: BP 146/62
--- NOTE | 2018-05-19 16:24 | EKG ---
[place] [address] ELECTROCARDIOGRAM REPORT Name: DOMINICK AGRAWAL Room: [address] ADM IN M.R.#: [id number] Admission: 05/09/18 Attend Phys: Mindy Mcgee DO Discharge: Date of : 50 Report #: [id number] THIS REPORT FOR: //name// [facility] Test Date: 2018-05-19 Test Time: 14:02:12 Pat Name: DOMINICK AGRAWAL Department: Room: [address] Gender: F Equine Vet: JAIDEN : 1950 Requested By: Tien Chong Order Number: [id number] Karan MD: Kirk Bradley Measurements Intervals [place] Rate: 50 P: 37 DE: 140 QRS: -9 QRSD: 97 T: 37 QT: 468 QTc: 427 Interpretive Statements Sinus bradycardia Compared to ECG 05/04/2018 07:41:59 No significant changes Electronically Signed On 05-19-2018 16:24:26 CDT by Kirk Bradley [email or web address] <ELECTRONICALLY SIGNED> By: Kirk Bradley MD, [facility] 05/19/18 1624 D: [id number] 01 Kirk Bradley MD, FACC /EPI
[2018-05-19 19:30] VITALS: BP 122/47
[2018-05-20 08:00] VITALS: BP 129/55
--- NOTE | 2018-05-20 11:15 | EKG ---
[place] [address] ELECTROCARDIOGRAM REPORT Name: DOMINICK AGRAWAL Room: [address] ADM IN M.R.#: [id number] Admission: 05/09/18 Attend Phys: Mindy Mcgee DO Discharge: Date of : 50 Report #: [id number] THIS REPORT FOR: //name// [facility] Test Date: 2018-05-20 Test Time: 08:37:24 Pat Name: DOMINICK AGRAWAL Department: Room: [address] Gender: F Webfocus Developer: MARISOL : 1950 Requested By: Tien Chong Order Number: [id number] Reading MD: Ike Nash Measurements Intervals [place] Rate: 58 P: 41 AL: 153 QRS: -15 QRSD: 98 T: 34 QT: 461 QTc: 453 Interpretive Statements Sinus rhythm Borderline left axis deviation Low voltage, precordial leads Borderline T abnormalities, anterior leads Compared to ECG 05/19/2018 14:02:12 Low QRS voltage now present T-wave abnormality now present Sinus bradycardia no longer present Electronically Signed On 05-20-2018 11:15:14 CDT by Ike Nash [email or web address] <ELECTRONICALLY SIGNED> By: Aleksandr Nash MD, [facility] 05/20/18 1115 0837 0837 Aleksandr Nash MD, [facility] /EPI
[2018-05-20 19:20] VITALS: BP 111/56
[2018-05-21 04:13] LABS: HEMATOCRIT 31.3 % (37.0-47.0); HEMOGLOBIN 10.5 gm/dL (12.0-15.0); MCHC 33.5 g/dL (28.0-37.0); MCV 92.5 fL (80.0-100.0); MPV 9.2 fl. (7.2-11.1); RBC 3.39 mil/uL (4.20-5.00); RDW-CV 17.7 % (10.5-14.5)
[2018-05-21 04:24] LABS: CALCIUM 8.4 mg/dL (8.5-10.1); CREATININE 0.8 mg/dL (0.6-1.3); MAGNESIUM 1.9 mg/dL (1.8-2.4); POTASSIUM 3.9 mmol/L (3.5-5.1)
[2018-05-21 08:00] VITALS: BP 125/53
[2018-05-21 19:50] VITALS: BP 114/63
[2018-05-22 04:28] LABS: HEMATOCRIT 30.6 % (37.0-47.0); HEMOGLOBIN 10.3 gm/dL (12.0-15.0); MCH 31.2 pg (26.0-34.0); MCHC 33.7 g/dL (28.0-37.0); MCV 92.4 fL (80.0-100.0); RBC 3.31 mil/uL (4.20-5.00); RDW-CV 17.4 % (10.5-14.5); WBC 6.5 thou/uL (4.0-11.0)
[2018-05-22 04:56] LABS: CALCIUM 8.1 mg/dL (8.5-10.1); CREATININE 0.8 mg/dL (0.6-1.3); MAGNESIUM 1.9 mg/dL (1.8-2.4); POTASSIUM 4.8 mmol/L (3.5-5.1)
[2018-05-22 08:00] VITALS: BP 123/79
[2018-05-22 19:45] VITALS: BP 121/70
[2018-05-23 08:00] VITALS: BP 85/50
[2018-05-23 09:00] VITALS: BP 81/52
[2018-05-23 19:50] VITALS: BP 144/63
[2018-05-24 09:00] VITALS: BP 111/45
[2018-05-24 14:51] VITALS: BP 111/45
[2018-05-24 19:30] VITALS: BP 123/70
[2018-05-25 10:24] VITALS: BP 111/45
[2018-05-25 10:29] VITALS: BP 111/45
[2018-05-25 10:36] VITALS: BP 111/45
[2018-05-25] MEDS ORDERED: TYLENOL325 MG PO (11:05)
[2018-05-25 11:10] VITALS: BP 111/45
--- NOTE | 2018-05-25 13:33 | H ---
[address] [address] HISTORY AND PHYSICAL Name: DOMINICK AGRAWAL Room: [address] IN .R.#: [id number] Admission: 05/09/18 Attend Phys: Mindy Mcgee DO Discharge: Date of : 50 Report #: [id number] THIS REPORT FOR: //name// CC: Mindy Steel DATE OF SERVICE: 05/10/2018 HISTORY OF PRESENT ILLNESS: This is a 68-year-old female admitted to inpatient rehabilitation to facilitate safe discharge home, status post T12 fracture, date of onset is 05/04/2018. She is in a TLSO brace. No significant changes since the preadmission screening. Estimated length of stay is 12-14 days with discharge disposition to the home setting with supportive family. She did have a fall from standing height in her house on 05/04/2018. She then had a second fall as well. Previous level of function was independent to modified independent with activities of daily living. Current level of function is minimum to moderate assistance with activities of daily living of 1-2 depending on therapy, activity and time of day. Estimated length of stay, as previously stated, 14-16 days. She does have needs in PT, OT and speech language pathology to facilitate safe discharge home setting. PAST MEDICAL HISTORY: Hypertension, atrial fibrillation, osteoarthritis, hyperlipidemia, anemia, GERD, headache, spondylosis, pneumonia, post-concussive syndrome, hypothyroidism, cervicalgia, schizoaffective disorder, frequent falls, debility, mild cognitive impairment, orthostasis, dementia, elevated D-dimer. PAST SURGICAL HISTORY: Cholecystectomy, left total knee arthroplasty, benign tumor removed, breast biopsy, benign, lymph nodes removed from her neck. MEDICATIONS: Reviewed and reconciled by myself and are available in the MAR. REVIEW OF SYSTEMS: A 14-point review of systems is done today, is negative. PHYSICAL EXAMINATION: GENERAL: Alert, oriented, in no apparent distress. VITAL SIGNS: Reviewed and are stable. HEENT: Head atraumatic, normocephalic. Pupils equal, round, reactive. ABDOMEN: Soft, nontender, nondistended. NEUROLOGIC: Cranial nerves 2-12 are grossly intact. No focal neuro deficits, 5/5 strength in bilateral upper and lower extremities. SKIN: Warm and dry. No rashes or lesions noted. ASSESSMENT: 1. Post fall with T12 fracture and a TLSO brace. 2. Multiple medical comorbidities requiring acute daily medical care. 3. PT, OT, speech, language, case management, nursing [place] [address] HISTORY AND PHYSICAL Name: DOMINICK AGRAWAL Room: [address] IN [facility].#: [id number] Admission: 05/09/18 Attend Phys: Mindy Mcgee DO Discharge: Date of : 50 Report #: [id number] evaluations and recommendations. 2. Plan of care is pending. We will team her weekly. <ELECTRONICALLY SIGNED> By: Mindy Mcgee DO 05/25/18 1333 1837 1859Mindy Mcgee DO /nt
[2018-05-25 14:01] VITALS: BP 119/71
--- NOTE | 2018-06-11 08:15 | PLAN ---
[address] [address] REHAB UNIT PLAN OF CARE Name: DOMINICK AGRAWAL Room: [address] IN .R.#: [id number] Admission: 05/09/18 Attend Phys: Mindy Mcgee DO Discharge: 05/25/18 Date of : 50 Report #: [id number] THIS REPORT FOR: //name// CC: Mindy Mcgee Brandon Steel This is a 68-year-old female admitted to inpatient rehabilitation to facilitate safe discharge home, status post traumatic T12 fracture. She is currently in a TLSO brace. She does have needs in PT, OT and speech language pathology. Her previous level of function was independent in activities of daily living to modified independent. Current level of function is moderate assistance of 1-2 depending on therapy, activity and time of day. Estimated length of stay is 12-14 days with discharge disposition to the home setting with supportive family and support and accessible house. MEDICAL PROGNOSIS: Good. REHABILITATION PROGNOSIS: Good. Physical therapy will see the patient 60-90 minutes per day, 5 days per week, working on upper and lower body strength, balance, coordination, navigation. Occupational therapy will work with the patient 60-90 minutes per day, 5 days per week, working on upper and lower body strength, balance, coordination, navigation, bathing, dressing, and toileting. Speech language pathology will work with the patient on memory, cognition and strategies for safety. This is an overall plan of care, may change from time to time. We will team weekly and make changes to the plan of care as needed. <ELECTRONICALLY SIGNED> By: Mindy Mcgee DO 06/11/18 0815 1307 1410Mindy Mcgee DO /nt
--- NOTE | 2018-06-11 08:16 | D ---
[facility] [address] [place] [address] DISCHARGE SUMMARY Name: DOMINICK AGRAWAL Room: [address] IN M.R.#: [id number] Admission: 05/09/18 Attend Phys: Mindy Mcgee DO Discharge: 05/25/18 Date of : 50 Report #: [id number] THIS REPORT FOR: //name// CC: Mindy Mcgee [facility] DISCHARGE DIAGNOSIS: T12 fracture. DISCHARGE DISPOSITION: To home with home health, PT, OT, nursing and a bath aide. Follow up with Orthopedic Surgery as previously arranged, primary care physician within 1 week and Neuro in 2-3 weeks. Notifications for physician were given. She is maintaining her regular same diet. Fall precautions, ambulation with a front-wheeled walker, TLSO on at all times. Will need help donning and doffing that until Ortho changes the order. Medications were reviewed, reconciled by myself and are available in the MAR. She was given a prescription for risperidone, which Neurology did decrease to 1.5 mg p.o. at bedtime as well as recommendations to follow up with Dr. Barth in 2-3 weeks. DISCHARGE PHYSICAL EXAMINATION: GENERAL: Alert, oriented, no apparent distress. VITAL SIGNS: Reviewed and are stable. HEENT: Head atraumatic, normocephalic. Pupils equal, round, reactive. ABDOMEN: Soft, nontender, nondistended. <ELECTRONICALLY SIGNED> By: Mindy Mcgee DO 06/11/18815 1306 1316DO lanie Sequeira
== END 2018-05-25 15:36 | disposition home health service (06) | DRG 544 ==
LOC: M.REH 15:40
PROVIDERS: Family Medicine; Internal Medicine; ADMIT Physical Medicine & Rehabilitation
DX: M80.88XA Other osteoporosis with current pathological fracture, vertebra(e), initial encounter for fracture (principal); I10 Essential (primary) hypertension; I48.91 Unspecified atrial fibrillation; M19.90 Unspecified osteoarthritis, unspecified site; E78.5 Hyperlipidemia, unspecified; K21.9 Gastro-esophageal reflux disease without esophagitis; F07.81 Postconcussional syndrome; F25.9 Schizoaffective disorder, unspecified; R29.6 Repeated falls; R53.81 Other malaise; F03.90 Unspecified dementia, unspecified severity, without behavioral disturbance, psychotic disturbance, mood disturbance, and anxiety; Z96.652 Presence of left artificial knee joint; R42 Dizziness and giddiness; E03.9 Hypothyroidism, unspecified; G20 Parkinson's disease; Z87.01 Personal history of pneumonia (recurrent); Z90.49 Acquired absence of other specified parts of digestive tract; Z86.010 Personal history of colon polyps; Z88.8 Allergy status to other drugs, medicaments and biological substances; Z88.6 Allergy status to analgesic agent; Z88.0 Allergy status to penicillin; Z88.2 Allergy status to sulfonamides; Z88.1 Allergy status to other antibiotic agents; Z91.010 Allergy to peanuts; Z91.013 Allergy to seafood; Z91.040 Latex allergy status

== ENCOUNTER → 2018-06-16 | Outpatient (CLI) | payer MEDICARE, MEDICAID ==
[~2018-06-16] MED LIST changes: +LASIX 20 MG TAB20 MG PO; +MACROBID 100 M100 M1 PO; +TYLENOL325 MG PO
== END ==
LOC: M.CT 15:46
DX: S22.080D Wedge compression fracture of T11-T12 vertebra, subsequent encounter for fracture with routine healing (principal); M47.814 Spondylosis without myelopathy or radiculopathy, thoracic region; M25.78 Osteophyte, vertebrae; I10 Essential (primary) hypertension; I48.91 Unspecified atrial fibrillation; E03.9 Hypothyroidism, unspecified; M19.90 Unspecified osteoarthritis, unspecified site; X58.XXXD Exposure to other specified factors, subsequent encounter

== ENCOUNTER 2018-07-05 16:09 | Emergency (ER) | payer MEDICARE, MEDICAID ==
[~2018-07-05] VITALS: Ht 170.2 cm; Wt 90.7 kg
[~2018-07-05 16:09] MED LIST changes: -LASIX 20 MG TAB20 MG PO; -MACROBID 100 M100 M1 PO
[2018-07-05 17:09] LABS: URINE BILIRUBIN NEGATIVE (Negative); URINE BLOOD TRACE (Negative); URINE CLARITY CLEAR; URINE COLOR YELLOW; URINE GLUCOSE-RANDOM NEGATIVE (Negative); URINE KETONES TRACE (Negative); URINE LEUKOCYTES-REFLEX NEGATIVE (Negative); URINE NITRITE-REFLEX NEGATIVE (Negative); URINE PROTEIN NEGATIVE (Negative); URINE SPECIFIC GRAVITY >= 1.030 (1.005-1.030); URINE UROBILINOGEN 0.2 E.U./dl (0.2-1.0)
[2018-07-05 17:17] LABS: BACTERIA-REFLEX 1-9 Few /HPF (None Seen); SQUAMOUS >10 Many /LPF (0-3); URINE RBC 0-2 Rare /HPF (0-2); URINE WBC-REFLEX 0-5 Rare /HPF (0-5)
[2018-07-05 17:18] LABS: CASTS None Seen /LPF (None Seen); CRYSTALS None Seen /LPF (None Seen); MUCUS 4-6 Moderate strn/LPF (None Seen)
[2018-07-05 17:27] LABS: ABSOLUTE BASOPHILS 0.1 thou/uL (0.0-0.2); ABSOLUTE EOSINOPHILS 0.2 thou/uL (0.0-0.7); ABSOLUTE MONOCYTES 0.7 thou/uL (0.0-1.2); ABSOLUTE NEUTROPHILS 2.2 thou/uL (1.6-8.1); EOSINOPHILS 3.2 %; HEMATOCRIT 33.2 % (37.0-47.0); HEMOGLOBIN 11.1 gm/dL (12.0-15.0); LYMPHOCYTES 39.6 %; MCH 30.6 pg (26.0-34.0); MCHC 33.6 g/dL (28.0-37.0); MCV 91.1 fL (80.0-100.0); MONOCYTES 13.6 %; MPV 8.7 fl. (7.2-11.1); NUCLEATED RBCS 0 /100WBC; PLATELET COUNT* 179 thou/uL (150-400); POLYS 42.6 %; RBC 3.65 mil/uL (4.20-5.00); RDW-CV 15.6 % (10.5-14.5); WBC 5.1 thou/uL (4.0-11.0)
[2018-07-05 17:35] LABS: ANION GAP 4 mmol/L (7-16); BUN 14 mg/dL (7-18); CHLORIDE 104 mmol/L (98-107); CO2 28 mmol/L (21-32); CREATININE 0.8 mg/dL (0.6-1.3); GLUCOSE 93 mg/dL (70-99); POTASSIUM 3.6 mmol/L (3.5-5.1); SODIUM 136 mmol/L (136-145)
[2018-07-05 17:46] LABS: ALBUMIN 2.6 g/dL (3.4-5.0); ALKALINE PHOSPHATASE 61 U/L (46-116); APTT 27.3 Seconds (25.0-31.3); NT-PRO BRAIN NAT PEPTIDE 625 pg/mL (<300); PROTIME 10.5 Seconds (9.20-11.50); SGOT 11 U/L (15-37); SGPT 11 U/L (30-65); TOTAL BILIRUBIN 0.2 mg/dL (<0.1-1.0); TOTAL PROTEIN 6.6 g/dL (6.4-8.2); TROPONIN-I LEVEL <0.06 ng/mL (<0.06)
[2018-07-05] MEDS ORDERED: MACROBID 100 M100 M1 PO (20:44)
[2018-07-05] MEDS ORDERED: LASIX 20 MG TAB20 MG PO (20:44)
[2018-07-05 21:07] VITALS: BP 141/74
--- NOTE | 2018-07-06 16:37 | EKG ---
[place] [address] ELECTROCARDIOGRAM REPORT Name: DOMINICK AGRAWAL Room: [facility]#: [id number] Admission: 07/05/18 Attend Phys: Discharge: 07/05/18 Date of : 50 Report #: [id number] THIS REPORT FOR: //name// [facility] Test Date: 2018-07-05 Test Time: 17:29:50 Pat Name: DOMINICK AGRAWAL Department: Room: Gender: F Storage Administrator: Isa RUFF : 1950 Requested By: David Jimenez Order Number: [id number] MD: Goran Stiles Measurements Intervals [place] Rate: 53 P: -18 WV: 149 QRS: -14 QRSD: 99 T: 16 QT: 464 QTc: 436 Interpretive Statements Sinus rhythm Compared to ECG 05/20/2018 08:37:24 T-wave abnormality no longer present Electronically Signed On 07-06-2018 16:37:31 CDT by Goran Stiles [email or web address] <ELECTRONICALLY SIGNED> By: Goran Stiles MD, [facility] 07/06/18 1637 1729 28 Goran Stiles MD, FACC /EPI
== END 2018-07-05 21:08 | disposition home or self-care (01) ==
LOC: M.ERS 16:09
PROVIDERS: Family Medicine
DX: R35.0 Frequency of micturition (principal); R60.0 Localized edema; I10 Essential (primary) hypertension; M19.90 Unspecified osteoarthritis, unspecified site; E03.9 Hypothyroidism, unspecified; I48.91 Unspecified atrial fibrillation; F25.9 Schizoaffective disorder, unspecified; Z90.49 Acquired absence of other specified parts of digestive tract; Z96.652 Presence of left artificial knee joint; Z88.1 Allergy status to other antibiotic agents; Z88.0 Allergy status to penicillin; Z88.5 Allergy status to narcotic agent; Z88.9 Allergy status to unspecified drugs, medicaments and biological substances; Z91.041 Radiographic dye allergy status; Z91.040 Latex allergy status; Z91.013 Allergy to seafood

== ENCOUNTER → 2018-08-14 | Outpatient (CLI) | payer MEDICARE, MEDICAID ==
[~2018-08-14] MED LIST changes: +LASIX 20 MG TAB20 MG PO; +MACROBID 100 M100 M1 PO
[2018-08-14 14:00] LABS: ABSOLUTE BASOPHILS 0.1 thou/uL (0.0-0.2); ABSOLUTE EOSINOPHILS 0.1 thou/uL (0.0-0.7); ABSOLUTE LYMPHOCYTES 2.1 thou/uL (0.8-5.3); ABSOLUTE MONOCYTES 0.5 thou/uL (0.0-1.2); ABSOLUTE NEUTROPHILS 3.5 thou/uL (1.6-8.1); BASOPHILS 0.8 %; EOSINOPHILS 1.4 %; HEMATOCRIT 35.1 % (37.0-47.0); HEMOGLOBIN 11.7 gm/dL (12.0-15.0); LYMPHOCYTES 34.1 %; MCH 29.9 pg (26.0-34.0); MCHC 33.2 g/dL (28.0-37.0); MCV 89.9 fL (80.0-100.0); MONOCYTES 7.8 %; NUCLEATED RBCS 0 /100WBC; PLATELET COUNT* 191 thou/uL (150-400); POLYS 55.9 %; RBC 3.91 mil/uL (4.20-5.00); RDW-CV 14.9 % (10.5-14.5); WBC 6.2 thou/uL (4.0-11.0)
[2018-08-14 14:12] LABS: ALBUMIN 2.8 g/dL (3.4-5.0); ALKALINE PHOSPHATASE 74 U/L (46-116); ANION GAP 6 mmol/L (7-16); BUN 14 mg/dL (7-18); CALCIUM 8.6 mg/dL (8.5-10.1); CHLORIDE 100 mmol/L (98-107); CHOLESTEROL 155 mg/dL (<200); CO2 27 mmol/L (21-32); CREATININE 0.8 mg/dL (0.6-1.3); GLUCOSE 89 mg/dL (70-99); HDL CHOLESTEROL 58 mg/dL (>40); LDL CHOLESTEROL 86 mg/dL (<100); POTASSIUM 3.7 mmol/L (3.5-5.1); SGOT 15 U/L (15-37); SGPT 14 U/L (30-65); SODIUM 133 mmol/L (136-145); TC:HDL 2.7 Ratio (Not establshd); TOTAL BILIRUBIN 0.3 mg/dL (<0.1-1.0); TRIGLYCERIDE 58 mg/dL (<150); VLDL 12 mg/dL (<40)
[2018-08-14 14:14] LABS: AMMONIA < 10 umol/L (11-32); SERUM ASSESSMENT Clear
== END ==
LOC: M.LAB 13:35
DX: F31.9 Bipolar disorder, unspecified (principal); I11.9 Hypertensive heart disease without heart failure; E78.5 Hyperlipidemia, unspecified; E03.9 Hypothyroidism, unspecified; K21.9 Gastro-esophageal reflux disease without esophagitis

== ENCOUNTER → 2019-01-09 | Outpatient (CLI) | payer MEDICARE, MEDICAID ==
--- NOTE | 2019-01-09 15:38 | 2DMMODE ---
[place] [address] 2 D/M-MODE ECHOCARDIOGRAM Name: DOMINICK AGRAWAL Room: [facility]#: [id number] Admission: 01/09/19 Attend Phys: LUCINDA Stoddard Discharge: Date of : 50 Date of Service: 01/09/19 1538 Report #: [id number] THIS REPORT FOR: //name// APPROVED REPORT Study performed: 01/09/2019 12:38:06 EXAM: Comprehensive 2D, Doppler, and color-flow Echocardiogram Patient Location: Out-Patient BSA: 1.99 HR: 64 bpm BP: 115/70 mmHg Other Information Study Quality: Good Indications Atrial Fibrillation Peripheral Edema 2D Dimensions IVSd: 9.26 (7-11mm) LVOT Diam: 20.45 (18-24mm) LVDd: 43.68 mm PWd: 9.83 (7-11mm) Ascending Ao: 23.67 (22-36mm) LVDs: 26.70 (25-40mm) Aortic Root: 23.99 mm Volumes Left Atrial Volume (Systole) LA ESV Index: 17.60 mL/m2 Aortic Valve AoV Peak Urban.: 1.71 m/s AO Peak Gr.: 11.71 mmHg LVOT Max P.57 mmHg AO Mean Gr.: 6.18 mmHg LVOT Mean P.71 mmHg LVOT Max V: 0.94 m/s AO V2 VTI: 38.34 cm LVOT Mean V: 0.60 m/s PALOMA (VTI): 2.10 cm2 LVOT V1 VTI: 24.48 cm Mitral Valve E/A Ratio: 1.27 MV Decel. Time: 215.48 ms MV E Max Urban.: 0.99 m/s MV PHT: 62.49 [place] [address] 2 D/M-MODE ECHOCARDIOGRAM Name: DOMINICK AGRAWAL LEO Room: [facility]#: [id number] Admission: 01/09/19 Attend Phys: LUCINDA Stoddard Discharge: Date of : 50 Date of Service: 01/09/19 1538 Report #: [id number] MVA (PHT): 3.52 cm2 TDI E/Lateral E': 7.62 E/Medial E': 9.90 Medial E' Urban.: 0.10 m/s Lateral E' Urban.: 0.13 m/s Pulmonary Valve PV Peak Urban.: 0.96 m/s PV Peak Gr.: 3.68 mmHg Tricuspid Valve RAP Estimate: 5.00 mmHg TR Peak Gr.: 23.27 mmHg RVSP: 28.27 mmHg PA Pressure: 28.27 mmHg Left Ventricle The left ventricle is normal size. There is normal LV segmental wall motion. There is normal left ventricular wall thickness. Left ventricular systolic function is normal. LVEF is 55-60%. Moderate diastolic dysfunction is present (pseudonormal filling). Right Ventricle The right ventricle is normal size. The right ventricular systolic function is normal. Atria The left atrium size is normal. The right atrium size is normal. Aortic Valve The aortic valve is normal in structure. No aortic regurgitation is present. There is no aortic valvular stenosis. Mitral Valve Mild mitral annular calcification. Mild mitral regurgitation. No evidence of mitral valve stenosis. Tricuspid Valve The tricuspid valve is normal in structure. Mild tricuspid regurgitation. No pulmonary hypertension. Pulmonic Valve The pulmonary valve is normal in structure. There is no pulmonic valvular regurgitation[place] [address] 2 D/M-MODE ECHOCARDIOGRAM Name: DOMINICK AGRAWAL Room: [facility]#: [id number] Admission: 01/09/19 Attend Phys: Doris Pacheco, RECORD KEEPER Discharge: Date of : 50 Date of Service: 01/09/19 1538 Report #: [id number] The aortic root is normal in size. IVC is normal in size and collapses >50% with inspiration. Pericardium There is no pericardial effusion. <Conclusion> The left ventricle is normal size. There is normal left ventricular wall thickness. Left ventricular systolic function is normal. LVEF is 55-60%. Moderate diastolic dysfunction is present (pseudonormal filling). Mild mitral regurgitation. Mild tricuspid regurgitation. No pulmonary hypertension. IVC is normal in size and collapses >50% with inspiration. <ELECTRONICALLY SIGNED> By: Brandon Kauffman MD, FACC 01/09/19 1538 1538 1538 Brandon Kauffman MD, FACC /INF
== END ==
LOC: M.CRD 10-30 13:00
DX: I08.1 Rheumatic disorders of both mitral and tricuspid valves (principal); I48.0 Paroxysmal atrial fibrillation

== ENCOUNTER → 2019-01-22 | Outpatient (CLI) | payer MEDICARE, MEDICAID | LOC: M.RAD 11:46 | DX: Z12.31 Encounter for screening mammogram for malignant neoplasm of breast (principal) ==

== ENCOUNTER → 2019-06-22 | Outpatient (CLI) | payer MEDICARE, MEDICAID ==
[2019-06-22 10:14] LABS: ABSOLUTE EOSINOPHILS 0.1 thou/uL (0.0-0.7); ABSOLUTE LYMPHOCYTES 2.1 thou/uL (0.8-5.3); ABSOLUTE MONOCYTES 0.6 thou/uL (0.0-1.2); ABSOLUTE NEUTROPHILS 3.2 thou/uL (1.6-8.1); BASOPHILS 0.7 %; EOSINOPHILS 1.1 %; HEMATOCRIT 37.7 % (37.0-47.0); HEMOGLOBIN 12.8 gm/dL (12.0-15.0); LYMPHOCYTES 35.8 %; MCHC 33.9 g/dL (28.0-37.0); MCV 94.4 fL (80.0-100.0); MONOCYTES 9.7 %; MPV 9.3 fl. (7.2-11.1); NUCLEATED RBCS 0 /100WBC; PLATELET COUNT* 179 thou/uL (150-400); POLYS 52.7 %; RBC 3.99 mil/uL (4.20-5.00); RDW-CV 14.7 % (10.5-14.5)
[2019-06-22 10:32] LABS: ALBUMIN 2.9 g/dL (3.4-5.0); ALKALINE PHOSPHATASE 78 U/L (46-116); ANION GAP 8 mmol/L (7-16); BUN 8 mg/dL (7-18); CALCIUM 8.8 mg/dL (8.5-10.1); CHLORIDE 104 mmol/L (98-107); CHOLESTEROL 166 mg/dL (<200); CO2 29 mmol/L (21-32); CREATININE 0.8 mg/dL (0.6-1.3); GLUCOSE 89 mg/dL (70-99); HDL CHOLESTEROL 62 mg/dL (>40); LDL CHOLESTEROL 91 mg/dL (<100); POTASSIUM 3.7 mmol/L (3.5-5.1); SGOT 11 U/L (15-37); SGPT 14 U/L (30-65); SODIUM 141 mmol/L (136-145); TC:HDL 2.7 Ratio (Not establshd); TOTAL BILIRUBIN 0.5 mg/dL (<0.1-1.0); TOTAL PROTEIN 6.7 g/dL (6.4-8.2); TRIGLYCERIDE 67 mg/dL (<150); VLDL 13 mg/dL (<40)
[2019-06-22 10:33] LABS: AMMONIA < 10 umol/L (11-32)
[2019-06-22 10:34] LABS: SERUM ASSESSMENT Clear
== END ==
LOC: M.LAB 09:28
DX: F31.9 Bipolar disorder, unspecified (principal)

== ENCOUNTER 2019-07-09 15:30 | Observation (INO) | payer MEDICARE, MEDICAID ==
[~2019-07-09] VITALS: Ht 170.2 cm; Wt 89.4 kg
[2019-07-09 15:32] VITALS: BP 159/68
[2019-07-09] MEDS ORDERED: SYNTHROID100 MC1 PO (15:43)
[2019-07-09] MEDS ORDERED: MULTAQ400 MG PO (15:43)
[2019-07-09] MEDS ORDERED: TYLENOL EXTRA500 MG PO (15:46)
[2019-07-09] MEDS ORDERED: VITAMIN D-32000 UNIT PO (15:46)
[2019-07-09] MEDS ORDERED: VITAMIN D31000 UNI2 PO (15:48)
[2019-07-09 15:53] LABS: ABSOLUTE EOSINOPHILS 0.1 thou/uL (0.0-0.7); ABSOLUTE LYMPHOCYTES 2.5 thou/uL (0.8-5.3); ABSOLUTE MONOCYTES 0.6 thou/uL (0.0-1.2); ABSOLUTE NEUTROPHILS 3.4 thou/uL (1.6-8.1); BASOPHILS 0.6 %; EOSINOPHILS 1.2 %; HEMATOCRIT 39.4 % (37.0-47.0); HEMOGLOBIN 13.5 gm/dL (12.0-15.0); LYMPHOCYTES 38.1 %; MCHC 34.4 g/dL (28.0-37.0); MCV 93.1 fL (80.0-100.0); MONOCYTES 9.2 %; MPV 9.2 fl. (7.2-11.1); NUCLEATED RBCS 0 /100WBC; PLATELET COUNT* 197 thou/uL (150-400); POLYS 50.9 %; RBC 4.23 mil/uL (4.20-5.00); RDW-CV 14.6 % (10.5-14.5); WBC 6.7 thou/uL (4.0-11.0)
[2019-07-09 16:00] LABS: ANION GAP 8 mmol/L (7-16); BUN 12 mg/dL (7-18); CALCIUM 8.7 mg/dL (8.5-10.1); CHLORIDE 106 mmol/L (98-107); CO2 27 mmol/L (21-32); GLUCOSE 98 mg/dL (70-99); POTASSIUM 3.9 mmol/L (3.5-5.1); SODIUM 141 mmol/L (136-145)
[2019-07-09 16:14] LABS: ALBUMIN 2.9 g/dL (3.4-5.0); ALKALINE PHOSPHATASE 89 U/L (46-116); LIPASE 153 U/L (73-393); MAGNESIUM 2.1 mg/dL (1.8-2.4); NT-PRO BRAIN NAT PEPTIDE 585 pg/mL (<300); SGOT 10 U/L (15-37); SGPT 18 U/L (30-65); TOTAL BILIRUBIN 0.2 mg/dL (<0.1-1.0); TOTAL PROTEIN 6.9 g/dL (6.4-8.2); TROPONIN-I LEVEL <0.06 ng/mL (<0.06)
[2019-07-09 20:13] VITALS: BP 119/63
[2019-07-09 21:36] VITALS: BP 136/62
[2019-07-09 22:00] VITALS: BP 146/59
[2019-07-09 23:52] VITALS: BP 112/55
[2019-07-10] VITALS (7 sets, daily range): BP systolic 112–157; BP diastolic 49–80
[2019-07-10 05:08] LABS: ABSOLUTE EOSINOPHILS 0.1 thou/uL (0.0-0.7); ABSOLUTE LYMPHOCYTES 3.1 thou/uL (0.8-5.3); ABSOLUTE MONOCYTES 0.6 thou/uL (0.0-1.2); BASOPHILS 0.5 %; EOSINOPHILS 1.5 %; HEMATOCRIT 33.6 % (37.0-47.0); LYMPHOCYTES 45.8 %; MCH 31.8 pg (26.0-34.0); MCHC 33.9 g/dL (28.0-37.0); MCV 93.6 fL (80.0-100.0); MPV 9.2 fl. (7.2-11.1); NUCLEATED RBCS 0 /100WBC; PLATELET COUNT* 175 thou/uL (150-400); POLYS 43.2 %; RBC 3.59 mil/uL (4.20-5.00); RDW-CV 14.6 % (10.5-14.5); WBC 6.8 thou/uL (4.0-11.0)
[2019-07-10 05:19] LABS: HEMOGLOBIN 11.4 gm/dL (12.0-15.0)
[2019-07-10 05:23] LABS: CALCIUM 8.2 mg/dL (8.5-10.1); CREATININE 0.9 mg/dL (0.6-1.3); POTASSIUM 4.1 mmol/L (3.5-5.1)
--- NOTE | 2019-07-10 05:52 | NUR ---
RECEIVED REPORT FROM ED RN. PT TRANSFERRED TO 233. PT A&OX4. VSS. CARDIAC MONNITOR IN PLACE. ORIENTED TO ROOM & CALL LIGHT. PT TRACING SB ON TELE. PT UPADLIB TO RESTROOM. PT DENIES CHEST PAIN. INSTRUCTED ON NPO POST MIDNIGHT WITH SIPS OF WATER FOR CARDIO CONSULT. COMMUNICATES UNDERSTANDING. PT ABLE TO SLEEP WELL ON BED. CALL LIGHT WITHIN REACH.
[2019-07-10 09:17] LABS: CHOLESTEROL 154 mg/dL (<200); HDL CHOLESTEROL 49 mg/dL (>40); LDL CHOLESTEROL 94 mg/dL (<100); TC:HDL 3.1 Ratio (Not establshd); TRIGLYCERIDE 56 mg/dL (<150); VLDL 11 mg/dL (<40)
[2019-07-10 09:20] LABS: SERUM ASSESSMENT Clear
--- NOTE | 2019-07-10 11:39 | NUR ---
ASSUMED PT CARE AT 0800, AOX4, UP SBA, O2 SAT 90'S RA. TRACING SR ON TELE. PT COMPLAINS OF CHEST PAIN, RATED 2. PT FOR STRESS TEST, HEART ECHO. PT NPO. PT LUNG SOUND CLEAR, LAST BM 07/09/19. VSS, AM ASSESSMENT CHARTED. MEDS GIVEN PER MAR, CALL LIGHT WITHIN REACH, WILL CONTINUE TO MONITOR.
--- NOTE | 2019-07-10 13:51 | NUR ---
MET WITH PT TO DISCUSS HOME SITUATION/DC PLANNING. PT LIVES ALONE IN [place]. IS INDEPENDENT AND ACTIVE. USES WALKER OR CANE NEEDED, DRIVES. PT HAS HAD HH IN PAST. DENIES ANY NEEDS AT THIS TIME. WILL FOLLOW
--- NOTE | 2019-07-10 15:04 | EKG ---
[place] [address] ELECTROCARDIOGRAM REPORT Name: DOMINICK AGRAWAL LEO Room: [place] [address] ADM IN .R.#: [id number] Admission: 07/09/19 Attend Phys: Clint Delgadillo MD Discharge: Date of : 50 Report #: [id number] THIS REPORT FOR: //name// [facility] ED Test Date: 2019-07-09 Test Time: 15:32:43 Pat Name: DOMINICK AGRAWAL Department: Room: [facility] Gender: F Loan Administrator: JOHN PAUL : 1950 Requested By: Victor M Bliss Order Number: [id number] MD: Goran Stiles Measurements Intervals [place] Rate: 57 P: 43 ME: 130 QRS: 0 QRSD: 90 T: 34 QT: 435 QTc: 424 Interpretive Statements Sinus rhythm Atrial premature complex Compared to ECG 07/05/2018 17:29:50 Atrial premature complex(es) now present Electronically Signed On 07-10-2019 15:04:03 CDT by Goran Stiles [email or web address] <ELECTRONICALLY SIGNED> By: Goran Stiles MD, [facility] 07/10/19 1501 1532 1532 Goran Stiles MD, [facility] /EPI
--- NOTE | 2019-07-10 16:16 | 2DMMODE ---
[place] [address] 2 D/M-MODE ECHOCARDIOGRAM Name: DOMINICK AGRAWAL Room: [place] [address] ADM IN [facility]#: [id number] Admission: 07/09/19 Attend Phys: Clint Delgadillo, Discharge: Date of : 50 Date of Service: 07/10/19 1616 Report #: [id number] THIS REPORT FOR: //name// APPROVED REPORT Study performed: 07/10/2019 15:13:41 EXAM: Comprehensive 2D, Doppler, and color-flow Echocardiogram Patient Location: In-Patient Room #[facility] Status: routine BSA: 2.01 HR: 58 bpm BP: 157/62 mmHg Rhythm: NSR Other Information Study Quality: Good Indications Atrial Fibrillation Chest Pain 2D Dimensions IVSd: 7.84 (7-11mm) LVOT Diam: 16.24 (18-24mm) LVDd: 40.20 mm PWd: 8.82 (7-11mm) Ascending Ao: 29.88 (22-36mm) LVDs: 31.06 (25-40mm) Aortic Root: 25.20 mm Volumes Left Atrial Volume (Systole) LA ESV Index: 34.40 mL/m2 Aortic Valve AoV Peak Urban.: 2.02 m/s AO Peak Gr.: 16.37 mmHg LVOT Max P.22 mmHg AO Mean Gr.: 8.38 mmHg LVOT Mean P.72 mmHg LVOT Max V: 1.67 m/s AO V2 VTI: 43.13 cm LVOT Mean V: 0.97 m/s PALOMA (VTI): 1.80 cm2 LVOT V1 VTI: 37.51 cm Mitral Valve MV Mean Gr.: 2.40 mmHg E/A Ratio: 0.85 MV Decel. Time: 326.54 [place] [address] 2 D/M-MODE ECHOCARDIOGRAM Name: DOMINICK AGRAWAL LEO Room: [place] [address] ADM IN .R.#: [id number] Admission: 07/09/19 Attend Phys: Clint Delgadillo, Discharge: Date of : 50 Date of Service: 07/10/19 1616 Report #: [id number] MV E Max Urban.: 1.08 m/s MV PHT: 94.70 ms MVA (PHT): 2.32 cm2 TDI E/Lateral E': 9.00 E/Medial E': 9.00 Medial E' Urban.: 0.12 m/s Lateral E' Urban.: 0.12 m/s Pulmonary Valve PV Peak Urban.: 1.01 m/s PV Peak Gr.: 4.04 mmHg Tricuspid Valve RAP Estimate: 5.00 mmHg TR Peak Gr.: 25.27 mmHg RVSP: 30.00 mmHg PA Pressure: 30.00 mmHg Left Ventricle The left ventricle is normal size. There is normal LV segmental wall motion. There is normal left ventricular wall thickness. Left ventricular systolic function is normal. LVEF is 55-60%. Grade I - abnormal relaxation pattern. Right Ventricle The right ventricle is normal size. The right ventricular systolic function is normal. Atria The left atrium size is normal. The right atrium size is normal. Aortic Valve Aortic valve leaflets are mildly thickened. No aortic regurgitation is present. Mild aortic stenosis. Mitral Valve There is mitral annular calcification. Mild mitral regurgitation. No evidence of mitral valve stenosis. Tricuspid Valve The tricuspid valve is normal in structure. Mild tricuspid regurgitation. Borderline pulmonary hypertension. Pulmonic Valve The pulmonary valve is normal in structure. There is no pulmonic [place] [address] 2 D/M-MODE ECHOCARDIOGRAM Name: DOMINICK AGRAWAL LEO Room: [address] IN [facility]#: [id number] Admission: 07/09/19 Attend Phys: Clint Delgadillo, Discharge: Date of : 50 Date of Service: 07/10/19 1616 Report #: [id number] Great Vessels The aortic root is normal in size. IVC is normal in size and collapses >50% with inspiration. Pericardium There is no pericardial effusion. <Conclusion> The left ventricle is normal size. There is normal left ventricular wall thickness. Left ventricular systolic function is normal. LVEF is 55-60%. Grade I - abnormal relaxation pattern. Aortic valve leaflets are mildly thickened. Mild aortic stenosis. Mild mitral regurgitation. Mild tricuspid regurgitation. Borderline pulmonary hypertension. IVC is normal in size and collapses >50% with inspiration. <ELECTRONICALLY SIGNED> By: Brandon Kauffman MD, FACC 07/10/19 1616 1616 1616 Brandon Kauffman MD, FACC /INF
--- NOTE | 2019-07-10 16:34 | CARDNUC ---
[place] [address] CARDIAC NUCLEAR IMAGING REPORT Name: DOMINICK AGRAWAL Room: [address] IN [facility]#: [id number] Admission: 07/09/19 Attend Phys: Clint Delgadillo, Discharge: Date of : 50 Date of Service: 07/10/19 1634 Report #: [id number] THIS REPORT FOR: //name// APPROVED REPORT Study performed: 07/10/2019 13:40:14 Exam: Nuclear Stress Test Indication: Chest pain Patient Location: In-Patient Room #: 233 Stress Tech: Ayesha Ocasio Stress Nurse: Ania Bee Ht: 5 ft 7 in Wt: 196 lbs BSA: 2.00 m2 HR: 64 bpm BP: 157/75 mmHg BMI: 30.69 Rhythm: NSR Medical History Medical History: Atrial Fibrillation Medications: Dronedarone, Amlodipine, Aspirin, hydralazine Allergies: see worksheet Cardiac Risk Factors: Age, HTN, FHX of CAD Stress Test Details Stress Test: Pharmacologic stress testing performed using 0.4 mg of regadenoson per 5 mL given IV over 10 seconds. Reason for pharmacologic stress test: physical limitation. HR Resting HR: 64 bpm Max Heart Rate (APMHR): 151 bpm Max HR Achieved: 108 bpm Target HR (85% APMHR): 128 bpm % of APMHR: 71 Recovery HR: 85 bpm HR response to stress: Normal HR response to stress BP Resting BP: 157/75 mmHg Max BP: 141/72 mmHg BP response to stress: Normal blood pressure response to stress. ECG Resting ECG: [place] [address] CARDIAC NUCLEAR IMAGING REPORT Name: DOMINICK AGRAWALTTE Room: [address]#: [id number] Admission: 07/09/19 Attend Phys: Clint Delgadillo, Discharge: Date of : 50 Date of Service: 07/10/19 1634 Report #: [id number] Stress ECG: Sinus Tachycardia ST Change: None Arrhythmia: None Recovery ECG: Sinus Rhythm Recovery ST Change: None Recovery Arrhythmia: None Clinical Reason for Termination: Completed protocol Stress Symptoms: Chest pressure 5/10 The patient tolerated Lexiscan infusion without significant cardiac symptoms. Stress ECG Conclusion The baseline 12-lead EKG show sinus rhythm without significant ST segment abnormality. EKGs obtained during and post Lexiscan infusion show sinus rhythm and sinus tachycardia with no significant ST or T wave changes when compared to baseline. There were no stress-induced arrhythmias. NM EXAM: Myocardial Perfusion REST/STRESS Resting Data Rest SPECT myocardial perfusion imaging was performed in supine position 30 minutes following the intravenous injection of 9.8 mCi of Tc-99m Sestamibi. Time of rest injection: 11:55 The images were gated to evaluate regional wall motion and calculate left ventricular ejection fraction. Administration Route: IV Administration Site: Right AC Pharmacologic Stress Pharmacologic stress test was performed by injecting Regadenoson 0.4 mg IV push followed by the intravenous injection of 32.5 mCi of Tc-99m Sestamibi. Time of stress injection: 13:50 Administration Route: IV Administration Site: Right AC Heart Rate at time of stress injection: 99 bpm. Gated Stress SPECT was performed 45 minutes after stress injection. The images were gated to evaluate regional wall motion and calculate left ventricular ejection [place] [address] CARDIAC NUCLEAR IMAGING REPORT Name: DOMINICK AGRAWAL LEO Room: [address] IN [facility].#: [id number] Admission: 07/09/19 Attend Phys: Clint Delgadillo, Discharge: Date of : 50 Date of Service: 07/10/19 1634 Report #: [id number] Study: Good Artifact: No artifact Study Data At rest, the left ventricular ejection fraction was 64%.. Post stress, the left ventricular ejection was 70%.. TID = 1.03. Perfusion Normal left ventricular perfusion. Wall Motion Normal left ventricular wall motion. Nuclear Conclusion ECG Findings: negative for ischemia Clinical Findings: negative for ischemia Nuclear Findings: negative for ischemia Exercise Capacity: not assessed Left Ventricular Function: normal Risk Study: low Myocardial perfusion images show no defect to suggest infarct or ischemia. Left ventricular systolic function appears normal on gated studies. This is a low risk study. <Conclusion> The baseline 12-lead EKG show sinus rhythm without significant ST segment abnormality. EKGs obtained during and post Lexiscan infusion show sinus rhythm and sinus tachycardia with no significant ST or T wave changes when compared to baseline. There were no stress-induced arrhythmias. <ELECTRONICALLY SIGNED> By: Brandon Kauffman MD, [facility] 07/10/19 1634 1634 1634 Brandon Kauffman MD, FACC /INF
[2019-07-10] MEDS ORDERED: ELIQUIS5 MG PO (16:54)
--- NOTE | 2019-07-10 18:53 | NUR ---
DISCHARGED PLAN DISCUSSED WITH THE PATIENT. PT CARDIOLOGY OK TO DC. STRESS TEST NEGATIVE. MEDICATION PACKET/SCRIPT GIVEN. ALL BELONGINGS PACKED AND CHECKED. IV, TELE REMOVED. LEFT THE UNIT VIA WHEELCHAIR AT 1800.
== END 2019-07-10 18:00 | disposition home or self-care (01) ==
LOC: M.ERS 15:30 → M.2W 16:49 → M.TBA-ER 16:49 → M.2W 16:49
PROVIDERS: Emergency Medicine Emergency Medical Services; Registered Nurse; ADMIT Internal Medicine
DX: R07.89 Other chest pain (principal); F25.9 Schizoaffective disorder, unspecified; I48.91 Unspecified atrial fibrillation; E03.9 Hypothyroidism, unspecified; M19.90 Unspecified osteoarthritis, unspecified site; E78.5 Hyperlipidemia, unspecified; R42 Dizziness and giddiness; Z79.899 Other long term (current) drug therapy; Z79.82 Long term (current) use of aspirin

== ENCOUNTER 2019-08-06 13:57 | Inpatient (IN) | payer MEDICARE, MEDICAID ==
[~2019-08-06] VITALS: Ht 170.2 cm; Wt 92.1 kg
[~2019-08-06 13:57] MED LIST changes: +DEPAKOTE ER500 M1 PO; -DEPAKOTE ER500 MG PO; +NORVASC 2.5 MG2.5 M1 PO; -NORVASC2.5 MG PO; +SYNTHROID100 MC1 PO; +TYLENOL EXTRA500 MG PO; +VITAMIN D-32000 UNIT PO; +VITAMIN D31000 UNI2 PO
[2019-08-06 14:03] VITALS: BP 125/73
[2019-08-06 14:28] LABS: ABSOLUTE EOSINOPHILS 0.1 thou/uL (0.0-0.7); ABSOLUTE LYMPHOCYTES 2.2 thou/uL (0.8-5.3); ABSOLUTE MONOCYTES 0.7 thou/uL (0.0-1.2); ABSOLUTE NEUTROPHILS 4.8 thou/uL (1.6-8.1); BASOPHILS 0.5 %; EOSINOPHILS 0.7 %; HEMATOCRIT 36.2 % (37.0-47.0); HEMOGLOBIN 12.5 gm/dL (12.0-15.0); LYMPHOCYTES 28.3 %; MCHC 34.4 g/dL (28.0-37.0); MONOCYTES 9.5 %; MPV 9.8 fl. (7.2-11.1); NUCLEATED RBCS 0 /100WBC; PLATELET COUNT* 160 thou/uL (150-400); RBC 3.89 mil/uL (4.20-5.00); WBC 7.9 thou/uL (4.0-11.0)
[2019-08-06 14:36] LABS: APTT 24.5 Seconds (25.0-31.3); PROTIME 10.3 Seconds (9.20-11.50)
[2019-08-06 14:38] LABS: CALCIUM 9.2 mg/dL (8.5-10.1); CREATININE 0.9 mg/dL (0.6-1.3); POTASSIUM 3.8 mmol/L (3.5-5.1)
[2019-08-06 14:50] LABS: ALBUMIN 2.8 g/dL (3.4-5.0); CK-MB MASS 0.8 ng/mL (<0.5-3.6); TOTAL BILIRUBIN 0.3 mg/dL (<0.1-1.0); TOTAL PROTEIN 6.9 g/dL (6.4-8.2)
--- NOTE | 2019-08-06 16:11 | NUR ---
RIKY NOTIFIED UPON PT RETURN FROM CT. PT CONNECTED TO O2 AND MONITOR
[2019-08-06 16:45] VITALS: BP 153/96
[2019-08-06 17:25] VITALS: BP 153/96
[2019-08-06 20:00] VITALS: BP 136/70
--- NOTE | 2019-08-06 20:21 | NUR ---
PATIENT WAS TRANSFERED TO INPATIENT UNIT. TELEMETRY WAS APPLIED AND REPORT WAS GIVEN TO THE NIGHT NURSE.
[2019-08-07] VITALS: BP 134/77
--- NOTE | 2019-08-07 01:44 | NUR ---
ASSUMED PT CARE AT APPROX 1930. PT IS AWAKE AND ORIENTED X4. VSS ON 2L OF O2/NC. MEAT GRINDER IN PLACE TRACING SB-PT REMAINED ASYMPTOMATIC. PT DENIES PAIN AND DISCOMFORT. CALL LIGHT WITHIN REACH. HOURLY ROUNDING DONE FOR PT SAFETY. REPORT GIVEN TO VISH BYRD AT APPROX 0156.
[2019-08-07 04:00] VITALS: BP 146/69
[2019-08-07 05:38] LABS: HEMATOCRIT 38.3 % (37.0-47.0); HEMOGLOBIN 13.1 gm/dL (12.0-15.0); MCH 31.8 pg (26.0-34.0); MCHC 34.1 g/dL (28.0-37.0); RBC 4.12 mil/uL (4.20-5.00); RDW-CV 13.7 % (10.5-14.5); WBC 4.9 thou/uL (4.0-11.0)
[2019-08-07 06:06] LABS: CALCIUM 9.3 mg/dL (8.5-10.1); CREATININE 0.9 mg/dL (0.6-1.3)
--- NOTE | 2019-08-07 06:18 | NUR ---
ASSUMED PATIENT CARE AT 0200. PATIENT RESTED QUIETLY THROUGHOUT THE REST OF SHIFT
[2019-08-07 08:18] VITALS: BP 134/61
--- NOTE | 2019-08-07 08:44 | EKG ---
[place] [address] ELECTROCARDIOGRAM REPORT Name: DOMINICK AGRAWAL Room: [address] ADM IN M.R.#: [id number] Admission: 08/06/19 Attend Phys: Preston Carrizales Discharge: Date of : 50 Report #: [id number] THIS REPORT FOR: //name// [facility] ED Test Date: 2019-08-06 Test Time: 14:13:00 Pat Name: DOMINICK AGRAWAL Department: Room: [facility] Gender: F Loader Operator/Ground Leader: JOHN PAUL : 1950 Requested By: David Jimenez Order Number: [id number] MD: Brandon Kauffman Measurements Intervals [place] Rate: 50 P: -11 OR: 125 QRS: -15 QRSD: 92 T: 32 QT: 465 QTc: 424 Interpretive Statements Sinus rhythm Borderline left axis deviation Compared to ECG 07/09/2019 15:32:43 Atrial premature complex(es) no longer present Electronically Signed On 08-07-2019 8:44:09 CDT by Brandon Kauffman [email or web address] <ELECTRONICALLY SIGNED> By: Brandon Kauffman MD, FACC 08/07/19 0844 1413 1413 Brandon Kauffman MD, FACC /EPI
--- NOTE | 2019-08-07 11:43 | NUR ---
Pt is A&O. Resides at home alone. Independent. Pt has a cleaning lady that comes in once/week. Pt uses a cane for mobility. No home o2. Hx of [facility]. Hx of skilled at [facility]. Goal is home at [facility], Pt wants [facility] with [facility] for a nurse at [facility]. Following. [facility]: [phone]
[2019-08-07 11:55] VITALS: BP 101/50
--- NOTE | 2019-08-07 11:57 | NUR ---
ASSUMED CARE OF PT AROUND 0730 THIS AM. REFER TO ASSESSMENT. PT'S MED DRONEDARONE HELD THIS AM FOR HEART RATE IN THE 40-50'S. PT STATES SHE STILL FEELS SOA AT REST. PT ON 2L O2/NC AT SHIFT CHANGE. ABLE TO MAINTAIN OXYGEN SATURATION AT 97% ON RA THEREFORE TITRATED PT TO RA. NO OTHER CONCERNS AT THIS TIME. CLWR. WCTM.
--- NOTE | 2019-08-07 15:36 | NUR ---
ASSUMED CARE OF PT AT APPROXIMATELY 1215, PT TAMEKA ANY NEEDS AT THSI TIME. AGREE WITH Chandler MALLORY ASSESSMENT.
[2019-08-07 17:01] VITALS: BP 111/54
[2019-08-07 20:00] VITALS: BP 113/52
[2019-08-08] VITALS: BP 134/62
[2019-08-08 04:22] VITALS: BP 141/68
--- NOTE | 2019-08-08 04:44 | NUR ---
ASSUMED PT CARE AT APPROX 1930. PT IS AWAKE AND ORIENTED X4. VSS ON ROOM AIR. NO DESATURATIONS NOTED. SLP TEACHER IN PLACE TRACING SB- PT REMAINED ASYMPTOMATIC. PT DENIES PAIN AND DISCOMFORT. CALL LIGHT WITHIN REACH. FALL PRECAUTIONS IN PLACE. HOURLY ROUNDING DONE FOR PT SAFETY.
[2019-08-08 05:51] LABS: CALCIUM 8.5 mg/dL (8.5-10.1); CREATININE 0.7 mg/dL (0.6-1.3); POTASSIUM 3.7 mmol/L (3.5-5.1)
[2019-08-08 07:53] VITALS: BP 144/63
--- NOTE | 2019-08-08 08:56 | NUR ---
ASSUMED CARE OF PT AROUND 0730 THIS AM. REFER TO ASSESSMENT. PT HAS MULTIPLE QUESTIONS REGARDING MEDICATIONS. ENCOURAGED PT TO DISCUSS MEDICATION CHANGES WITH PHYSICIAN. PT REPORTS POSSIBLE 'ADVERSE REACTION' TO NEW MEDICATION, XARELTO OVERNIGHT. STATES SHE HAD A NIGHTMARE, ARM TREMORS, THEN BODY ACHES. DISCUSSED IMPORTANCE OF THE MEDICATION AND NECESSITY TO CONTINUE TO OBSERVE FOR ANY ADDITIONAL ADVERSE REACTIONS BEFORE DC'ING MEDICATION. NO OTHER CONCERNS AT THIS TIME. CLWR. WCTM.
[2019-08-08 12:02] VITALS: BP 96/46
[2019-08-08 16:02] VITALS: BP 105/50
--- NOTE | 2019-08-08 16:06 | NUR ---
PT PROGRESSING TOWARDS GOALS THIS SHIFT. HEART RATE IN THE 60'S. PT TO START FLECAINIDE THIS EVENING. BLOOD THINNER CHANGED FOR REPORTED REACTION TO XARELTO. NO OTHER CONCERNS AT THIS TIME. CLWR. WCTM.
--- NOTE | 2019-08-08 17:38 | CON ---
[address] [address] CONSULTATION Name: DOMINICK AGRAWAL LEO Room: [address] IN M.R.#: [id number] Admission: 08/06/19 Attend Phys: Preston Carrizales Discharge: Date of : 50 Report #: [id number] THIS REPORT FOR: //name// CC: Preston Warren INDICATION: Chronic and continuing shortness of breath, orthopnea, paroxysmal nocturnal dyspnea and dyspnea on exertion. HISTORY OF PRESENT ILLNESS: The patient is a 69-year-old white female with history of paroxysmal atrial fibrillation. She is maintaining sinus rhythm on Multaq. She has not been anticoagulated in the past. She presented to the office yesterday with complaints of ongoing shortness of breath, limiting any activity. She was not hypoxic. She is noted to have an elevated D-dimer, suggesting the possibility of a pulmonary embolus. She is not able to do a CTA of the chest due to anaphylaxis with IV contrast. She refuses premedication for such testing. A venous Doppler study last month showed no evidence of DVT. She appears comfortable in bed without chest pain, but continues to complain of shortness of breath with any activity. PAST MEDICAL HISTORY: 1. Paroxysmal atrial fibrillation. 2. Benign essential hypertension. 3. Gastroesophageal reflux. 4. Hyperlipidemia. 5. Hypothyroidism. 6. Orthostatic hypotension. 7. Schizoaffective disorder. PAST SURGICAL HISTORY: 1. Breast mass excision in 1993 and 1994. 2. Cholecystectomy. 3. Polypectomy 1994, 2004, 2016. 4. Hand surgery remotely. 5. Left total knee replacement 2015. 6. Salivary gland surgery. FAMILY HISTORY: The patient's mother and father both had heart failure. SOCIAL HISTORY: The patient is a lifelong nonsmoker. She does not drink alcohol. ALLERGIES: CEPHALEXIN, CEPHALOSPORINS, CODEINE, CORTISONE, DOXYCYCLINE, FISH, IODINE, PENICILLIN, SULFAMETHOXAZOLE, AVOCADO, TALWIN, POLLEN, PROCAINE, LATEX, AZITHROMYCIN, CIPROFLOXACIN, FUROSEMIDE, HYDROCHLOROTHIAZIDE, [place] [address] CONSULTATION Name: DOMINICK AGRAWAL LEO Room: [address]#: [id number] Admission: 08/06/19 Attend Phys: Preston Carrizales Discharge: Date of : 50 Report #: [id number] CURRENT MEDICATIONS: Acetaminophen p.r.n., amlodipine 2.5 mg daily, aspirin 325 mg daily, vitamin D3 2000 units daily, Depakote 500 mg nightly 2 tablets, levothyroxine 100 mcg daily, Medrol Dosepak as directed, Multaq 400 mg b.i.d. PHYSICAL EXAMINATION: VITAL SIGNS: Stable. Blood pressure 138/74, pulse is 58 and regular. GENERAL: This is a pleasant female with somewhat flat affect, without complaint. HEENT: The patient is wearing glasses. Extraocular muscles intact. Mucous membranes are moist. NECK: Shows no jugular venous distention. There are no carotid bruits. CHEST: Reveals clear lung owens without wheezes or rales. CARDIOVASCULAR: Reveals a regular rhythm without gallop or murmur. ABDOMEN: Reveals normal bowel sounds. The abdomen is soft, nontender. EXTREMITIES: Shows no edema. SKIN: Warm and dry. Telemetry shows sinus bradycardia without significant ST or T-wave abnormality. EKG shows sinus bradycardia with no significant ST or T-wave abnormalities. LABORATORY DATA: Reviewed. Sodium 137, potassium 4.0, chloride 101, bicarbonate 26, BUN 15, creatinine 0.9, serum glucose 147. LFTs within normal limits. Troponin less than 0.06 on 3 separate occasions. NT-proBNP 437. Recent lipid profile shows total cholesterol 154, triglycerides 56, HDL 49, LDL 94. D-dimer 1.89. White blood cell count 4.9, hemoglobin 13.1, platelet count 163,000. Lower extremity ultrasound, no evidence of DVT. CT of the chest, no acute chest process. Chest x-ray, no acute process. IMPRESSION AND RECOMMENDATIONS: 1. Ongoing shortness of breath with any activity. Etiology is not entirely clear. The patient does not appear to be in acute heart failure at this time. She is not requiring significant amounts of oxygen. I am concerned there may be some chronic recurrent pulmonary emboli. She has had a chronically elevated D-dimer. She is unable to undergo a CTA of the chest. She has reason for anticoagulation including paroxysmal atrial fibrillation. I am starting Xarelto 20 mg daily. 2. Paroxysmal atrial fibrillation, maintaining sinus rhythm on Multaq. Start Xarelto 20 mg daily. 3. Mild hyperlipidemia. No indication for statin agent at this time. Her LDL cholesterol is fairly well controlled. 4. Hypertension. Blood pressure adequately controlled. [address] [place] [address] CONSULTATION Name: DOMINICK AGRAWAL Room: [address] IN M.R.#: [id number] Admission: 08/06/19 Attend Phys: Preston Carrizales Discharge: Date of : 50 Report #: [id number] 5. Bradycardia. The patient is not significantly symptomatic with this. Would follow clinically. <ELECTRONICALLY SIGNED> By: Brandon Kauffman MD, FACC 08/08/19 1738 1046 1104Micronni Kauffman MD, FACC /nt
[2019-08-08 20:00] VITALS: BP 114/56
[2019-08-09] VITALS: BP 133/58
--- NOTE | 2019-08-09 02:27 | NUR ---
PT ALERT ORIENTED. TELEMETRY SHOWS SR. ON RA. FLECAINIDE STARTED TONIGHT. UP WITH STAND BY AND A CANE.
[2019-08-09 04:28] VITALS: BP 114/65
[2019-08-09 05:17] LABS: HEMOGLOBIN 11.2 gm/dL (12.0-15.0); MCH 31.6 pg (26.0-34.0); MCHC 33.8 g/dL (28.0-37.0); MCV 93.4 fL (80.0-100.0); MPV 9.7 fl. (7.2-11.1); RBC 3.53 mil/uL (4.20-5.00); RDW-CV 13.8 % (10.5-14.5); WBC 8.3 thou/uL (4.0-11.0)
[2019-08-09 05:34] LABS: CALCIUM 8.8 mg/dL (8.5-10.1); CREATININE 0.8 mg/dL (0.6-1.3); POTASSIUM 3.9 mmol/L (3.5-5.1)
[2019-08-09 08:00] VITALS: BP 121/43
--- NOTE | 2019-08-09 10:42 | NUR ---
AM ASSESSMENT COMPLETE, DEFER TO COMPUTER CHARTING. MOTORCYCLE SALES ASSOCIATE TRACKING SB WITH RATE 46. ALERT ORIENTED. DENIES PAIN, DIZZINESS AT THIS TIME. ANXIOUS - REASURNACE GIVEN. CALL LIGHT WITHIN REACH. WILL MONITOR.
[2019-08-09 12:22] VITALS: BP 102/49
[2019-08-09] MEDS ORDERED: ELIQUIS5 MG PO (13:35)
[2019-08-09] MEDS ORDERED: FLECAINIDE ACET50 M1 PO (13:35)
[2019-08-09 16:01] VITALS: BP 113/54
--- NOTE | 2019-08-09 16:16 | NUR ---
LEAD BUSINESS SYSTEMS ANALYST TRACKING SR TO SB. NO COMPLAINTS OF DIZZINESS, CHEST PAIN OR ANY DISCOMFORT TO NURSING. TOLERATING DIET. NO VOICED CONCERNS TO NURSING. PROGRESSING TOWARD OUTCOME GOAL. WILL CONTINUE WITH PLAN OF CARE.
[2019-08-09 20:00] VITALS: BP 150/64
[2019-08-10] VITALS (7 sets, daily range): BP systolic 115–141; BP diastolic 57–87
[2019-08-10 04:42] LABS: HEMATOCRIT 33.6 % (37.0-47.0); HEMOGLOBIN 11.4 gm/dL (12.0-15.0); MCH 31.8 pg (26.0-34.0); MCHC 33.9 g/dL (28.0-37.0); MCV 93.9 fL (80.0-100.0); MPV 9.7 fl. (7.2-11.1); RBC 3.58 mil/uL (4.20-5.00); RDW-CV 14.1 % (10.5-14.5); WBC 8.2 thou/uL (4.0-11.0)
--- NOTE | 2019-08-10 05:08 | NUR ---
ASSUMED PT CARE AT APPROX 1930. PT IS AWAKE AND ORIENTED X4. VSS ON ROOM AIR. MACHINE INSPECTOR IN PLACE TRACING SB/SR. PT DENIES PAIN/DISCOMFORT OF THIS TIME. PT IS ABLE TO SLEEP THROUGH THE NIGHT. CALL LIGHT WITHIN REACH. FALL PRECAUTIONS IN PLACE.HOURLY ROUNDING DONE FOR PT SAFETY.
[2019-08-10 05:16] LABS: CALCIUM 8.5 mg/dL (8.5-10.1); CREATININE 0.8 mg/dL (0.6-1.3); MAGNESIUM 1.9 mg/dL (1.8-2.4)
[2019-08-10] MEDS ORDERED: ELIQUIS5 MG PO (17:08)
--- NOTE | 2019-08-10 17:17 | NUR ---
VSS, assumed care in the am, aSSESSMENT PERFORMED AND CHARTERD FALL PRECAUTIONS IN PLACE AND CALL LIGHT IN REACH, PT IS A&O3 AND IS TRACING SR/SB ON THE MONITOR, PT IS ON RA AND UP AD LEILANI AND PT DENIES ANY PAIN, SHE IS FORGETFUL AT TIMES, PT GOAL IS TO DISCHARGE TO HOME, AT THIS TIME I HAVE RECIEVED D/C ORDERS, FILLED OUT DISCHARGE INSTRUCTIONS AND CHECKED ON SCRIPTS, PT IV AND TELE MONITOR HAVE BEEN REMOVED, I WILL CALLED HER SON AND SIT UP TRANSPORT, HOURLY ROUNDS COMPLETED,
== END 2019-08-10 18:45 | disposition home health service (06) | DRG 308 ==
LOC: M.ERS 13:57 → M.2W 15:10 → M.TBA-ER 15:10 → M.2W 17:42
PROVIDERS: Family Medicine; Internal Medicine; Internal Medicine Cardiovascular Disease; ADMIT Family Medicine
DX: I49.5 Sick sinus syndrome (principal); I26.99 Other pulmonary embolism without acute cor pulmonale; D68.59 Other primary thrombophilia; M19.90 Unspecified osteoarthritis, unspecified site; Z96.652 Presence of left artificial knee joint; I48.0 Paroxysmal atrial fibrillation; E78.5 Hyperlipidemia, unspecified; F25.9 Schizoaffective disorder, unspecified; T50.905A Adverse effect of unspecified drugs, medicaments and biological substances, initial encounter; I10 Essential (primary) hypertension; E03.9 Hypothyroidism, unspecified; Z86.010 Personal history of colon polyps; Z90.49 Acquired absence of other specified parts of digestive tract; Z88.2 Allergy status to sulfonamides; Z88.8 Allergy status to other drugs, medicaments and biological substances; Z88.6 Allergy status to analgesic agent; Z88.1 Allergy status to other antibiotic agents; Z91.041 Radiographic dye allergy status; Z91.040 Latex allergy status; Z91.013 Allergy to seafood; Z82.49 Family history of ischemic heart disease and other diseases of the circulatory system; Y92.89 Other specified places as the place of occurrence of the external cause

== ENCOUNTER → 2019-12-21 | Outpatient (CLI) | payer MEDICARE, MEDICAID ==
[~2019-12-21] MED LIST changes: +ELIQUIS5 MG PO; +FLECAINIDE ACET50 M1 PO
[2019-12-21 11:20] LABS: ABSOLUTE EOSINOPHILS 0.1 thou/uL (0.0-0.7); ABSOLUTE LYMPHOCYTES 2.2 thou/uL (0.8-5.3); ABSOLUTE MONOCYTES 0.6 thou/uL (0.0-1.2); ABSOLUTE NEUTROPHILS 3.7 thou/uL (1.6-8.1); BASOPHILS 0.5 %; EOSINOPHILS 0.8 %; HEMOGLOBIN 12.7 gm/dL (12.0-15.0); LYMPHOCYTES 33.1 %; MCH 31.5 pg (26.0-34.0); MCHC 34.5 g/dL (28.0-37.0); MCV 91.6 fL (80.0-100.0); MONOCYTES 9.3 %; MPV 8.8 fl. (7.2-11.1); NUCLEATED RBCS 0 /100WBC; PLATELET COUNT* 184 thou/uL (150-400); POLYS 56.3 %; RBC 4.04 mil/uL (4.20-5.00); RDW-CV 14.8 % (10.5-14.5); WBC 6.7 thou/uL (4.0-11.0)
[2019-12-21 11:30] LABS: ALBUMIN 2.8 g/dL (3.4-5.0); ALKALINE PHOSPHATASE 90 U/L (46-116); ANION GAP 6 mmol/L (7-16); BUN 13 mg/dL (7-18); CALCIUM 8.6 mg/dL (8.5-10.1); CHLORIDE 105 mmol/L (98-107); CHOLESTEROL 189 mg/dL (<200); CO2 31 mmol/L (21-32); CREATININE 0.8 mg/dL (0.6-1.3); GLUCOSE 91 mg/dL (70-99); HDL CHOLESTEROL 54 mg/dL (>40); LDL CHOLESTEROL 120 mg/dL (<100); SGOT 13 U/L (15-37); SGPT 25 U/L (30-65); SODIUM 142 mmol/L (136-145); TC:HDL 3.5 Ratio (Not establshd); TOTAL BILIRUBIN 0.4 mg/dL (<0.1-1.0); TOTAL PROTEIN 6.8 g/dL (6.4-8.2); TRIGLYCERIDE 75 mg/dL (<150); VLDL 15 mg/dL (<40)
[2019-12-21 11:31] LABS: SERUM ASSESSMENT Clear
== END ==
LOC: M.LAB 10:40
PROVIDERS: Psychiatry & Neurology Psychiatry
DX: I10 Essential (primary) hypertension (principal); F31.9 Bipolar disorder, unspecified; R73.03 Prediabetes; F41.9 Anxiety disorder, unspecified

== ENCOUNTER 2020-02-18 14:24 | Inpatient (IN) | payer MEDICARE, MEDICAID ==
[~2020-02-18] VITALS: Ht 170.2 cm; Wt 91.6 kg
[2020-02-18 14:33] VITALS: BP 135/84
[2020-02-18] MEDS ORDERED: NORCO 5-325 TA1 EAC1 PO (15:51)
[2020-02-18] MEDS ORDERED: ULTRA-LIGHT RO1 EACH MISCELL (15:53)
[2020-02-18 16:37] LABS: ABSOLUTE EOSINOPHILS 0.1 thou/uL (0.0-0.7); ABSOLUTE LYMPHOCYTES 2.2 thou/uL (0.8-5.3); ABSOLUTE MONOCYTES 0.5 thou/uL (0.0-1.2); BASOPHILS 0.7 %; EOSINOPHILS 1.4 %; HEMATOCRIT 37.7 % (37.0-47.0); HEMOGLOBIN 12.8 gm/dL (12.0-15.0); LYMPHOCYTES 31.6 %; MCH 31.4 pg (26.0-34.0); MCHC 34.1 g/dL (28.0-37.0); MONOCYTES 7.8 %; MPV 9.2 fl. (7.2-11.1); NUCLEATED RBCS 0 /100WBC; PLATELET COUNT* 194 thou/uL (150-400); POLYS 58.5 %; RDW-CV 14.2 % (10.5-14.5); WBC 6.8 thou/uL (4.0-11.0)
[2020-02-18 16:47] LABS: APTT 27.9 Seconds (25.0-31.3); PROTIME 10.3 Seconds (9.20-11.50)
[2020-02-18 16:48] LABS: CALCIUM 8.5 mg/dL (8.5-10.1); CREATININE 0.8 mg/dL (0.6-1.3); POTASSIUM 4.1 mmol/L (3.5-5.1)
[2020-02-18 16:55] LABS: ALBUMIN 2.9 g/dL (3.4-5.0); TOTAL BILIRUBIN 0.3 mg/dL (<0.1-1.0); TOTAL PROTEIN 6.8 g/dL (6.4-8.2)
[2020-02-18 17:06] LABS: URINE BILIRUBIN NEGATIVE (Negative); URINE BLOOD NEGATIVE (Negative); URINE CLARITY CLEAR; URINE COLOR YELLOW; URINE GLUCOSE-RANDOM NEGATIVE (Negative); URINE KETONES NEGATIVE (Negative); URINE LEUKOCYTES-REFLEX TRACE (Negative); URINE PROTEIN NEGATIVE (Negative); URINE UROBILINOGEN 0.2 E.U./dl (0.2-1.0)
[2020-02-18 17:08] LABS: URINE NITRITE-REFLEX POSITIVE (Negative)
[2020-02-18 17:21] LABS: SQUAMOUS 0-3 Few /LPF (0-3)
[2020-02-18 17:22] LABS: BACTERIA-REFLEX >30 Many /HPF (None Seen); CASTS None Seen /LPF (None Seen); CRYSTALS None Seen /LPF (None Seen); URINE RBC None Seen /HPF (0-2); URINE WBC-REFLEX 0-5 Rare /HPF (0-5)
[2020-02-18 20:43] VITALS: BP 148/62
[2020-02-18] MEDS ORDERED: CABERGOLINE 0.0.5 M1 PO (21:18)
[2020-02-18] MEDS ORDERED: ALLEGRA ALLERG180 MG PO (21:19)
[2020-02-19] VITALS: BP 147/64
[2020-02-19 07:42] VITALS: BP 139/70
--- NOTE | 2020-02-19 08:28 | NUR ---
PT RECIEVED FROM ED IN ROOM 226. ALERT AND ORIENTED X4. CALL LIGHT WITHIN REACH AND BED IN LOW POSITION. C/O PAIN, MEDICATION GIVEN PER EMAR. SAT MAINTAINED IN RA. HOURLY ROUNDING DONE FOR PT SAFETY.
--- NOTE | 2020-02-19 09:00 | NUR ---
ASSUMED CARE OF PT THIS AM AROUND 714- MS STATUS IN PLACE ORDERED- UPON ASSESSMENT PT NOTED TO BE RESTING IN BED- PT A&O X4- CONT OF BOWEL AND BLADDER- BED REST IN PLACE INDICATED- LCTA, RESP EVEN AND UN-LABORED- VSS, O2 SAT 97% ON RA- ABD SOFT/ROUND/NON-TENDER, BS X4 QUADS- LAST BM REPORTED 02/18/20- IV NOTED TO RIGHT FA INTACT, IVF INFUSSING PRESCRIBED- +1 BLE NOTED- PASCUAL KNEE PAIN REPORTED > IN LEFT- AWAITING 3 HINDGED BRACE ORDERED TO APPLY- CALL LIGHT AND PERSONAL BELONGINGS WITH IN REACH- HOURLY ROUNDS IN PLACE R/T SAFETY/NEEDS- ALL NEEDS MET AT THIS TIME-WCTM
--- NOTE | 2020-02-19 14:59 | NUR ---
CM spoke with Pt's brother via phone. Pt resides at home alone. Normally independent. Pt uses a cane for community distances, but does not use DME inside the home. Pt also has a walker. Hx of [facility]. Hx of skilled at [facility]. Per brother, unsure of dispo needs at this time, pending therapy evals. Following.
--- NOTE | 2020-02-19 17:05 | NUR ---
ASSUME CARE OF PT. PT RESTING IN BED. KNEE IMMOBILIZER TO LEFT KNEE. IVF INFUSING. PT ORIENTED TO ROOM,CALL LIGHT WITHIN REACH. PT ASSISTED TO BSC
[2020-02-19 20:25] VITALS: BP 168/78
--- NOTE | 2020-02-20 05:10 | NUR ---
PATIENT UP WITH ASSIST X1 TO COMMODE, ROOM AIR, ALERT AND ORIENTED. WORE LEFT KNEE HINGE BRACE UNLOCKED ALL SHIFT. SHE WAS ABLE TO SLEEP ALL SHIFT. NO COMPLAINTS OF PAIN OR WORSENING OF CONDITION. RECEIVED ALL MEDS. XIOMARA CONTINUE TO FOLLOW PLAN OF CARE.
[2020-02-20 07:40] VITALS: BP 147/68
--- NOTE | 2020-02-20 17:11 | NUR ---
ASSUMED CARE OF PATIENT AT APPROX 0730. ALERT AND OREINTED X4. ASSESSMENT COMPLETED AND CHARTED. VSS ON ROOM AIR. PAIN MANAGED WITH TYLENOL. PATIENT UP WITH ASSIST TO BEDSIDE COMMODE AND UP TO THE CHAIR WITH THERAPY. FLUIDS AND ANTIBIOTICS INFUSED ORDERED. NO OTHER COMPLAINTS THIS SHIFT. FALL PRECAUTIONS IN PLACE. CALL LIGHT WITHIN REACH. HOURLY ROUNDS COMPLETED. WILL CONTINUE WITH PLAN OF CARE.
[2020-02-20 20:22] VITALS: BP 147/92
[2020-02-21 02:09] LABS: GLYCOHEMOGLOBIN (HGB A1C) 5.5 % (4.8-5.6)
--- NOTE | 2020-02-21 05:23 | NUR ---
UP WITH ASSIST TO COMMODE. KNEE HINGE BRACE STILL IN PLACE. RECEIVED ALL MEDS SCHEDULED. PLAN TO D/C WITH HOME HEALTH. TYLENOL GIVEN FOR KNEE PAIN. SLEPT WELL THROUGH NIGHT. WILL CONTINUE TO FOLLOW PLAN OF CARE.
--- NOTE | 2020-02-21 18:03 | NUR ---
ASSUMED CARE OF PATIENT AT APPROX 0730. ALERT AND ORIENTED X4. ASSESSMENT COMPLETED AND CHARTED. VSS ON ROOM AIR. COMPLAINT OF PAIN ADDRESSED WITH TYLENOL. PATIENT UP WITH ASSIST TO BEDSIDE COMMODE. HINGED KNEE BRACE IN PLACE. FLUIDS AND ANTIBIOTICS INFUSED ORDERED. NO OTHER COMPLAINTS THIS SHIFT. FALL PRECAUTIONS IN PLACE. CALL LIGHT WITHIN REACH. HOURLY ROUNDS COMPLETED. WILL CONTINUE WITH PLAN OF CARE.
[2020-02-21 20:00] VITALS: BP 158/64
--- NOTE | 2020-02-22 04:56 | NUR ---
PT A&O, ON RA. MEDS GIVEN ORDERED. UP TO BSC WITH WALKER. PT RATED PAIN 5/10 BUT DIDNT WANT TO TAKE PAIN MED. LT KNEE BRACE IN PLACE. PT SLEEPING THROUGH THE NIGHT. HOURLY ROUNDINGS COMPLETED. WILL CONTINUE TO MONITOR.
[2020-02-22] MEDS ORDERED: CLEOCIN HCL300 MG PO (09:42)
[2020-02-22] MEDS ORDERED: VOLTAREN GEL 1100 G2 TOP (09:42)
[2020-02-22 09:51] VITALS: BP 150/84
[2020-02-22 10:50] VITALS: BP 150/84
[2020-02-22 11:59] VITALS: BP 150/84
--- NOTE | 2020-02-22 15:35 | NUR ---
PT DISCHARGED TO HOME WITH HH. IV OUT. PT STABLE. LEG BRACE IN PLACE. PERSONAL ITEMS SENT WITH PT.
== END 2020-02-22 15:36 | disposition home health service (06) | DRG 563 ==
LOC: M.ERS 14:24 → M.2W 16:34 → M.TBA-ER 16:34 → M.2W 20:50 → M.ORTHSURG 02-19 17:26
PROVIDERS: Nurse Practitioner Family; ADMIT Internal Medicine
DX: S83.241A Other tear of medial meniscus, current injury, right knee, initial encounter (principal); N39.0 Urinary tract infection, site not specified; E44.0 Moderate protein-calorie malnutrition; Z96.652 Presence of left artificial knee joint; W18.39XA Other fall on same level, initial encounter; F31.9 Bipolar disorder, unspecified; F20.9 Schizophrenia, unspecified; M19.90 Unspecified osteoarthritis, unspecified site; I10 Essential (primary) hypertension; I48.91 Unspecified atrial fibrillation; R73.9 Hyperglycemia, unspecified; M61.58 Other ossification of muscle, other site; E03.9 Hypothyroidism, unspecified; Z86.010 Personal history of colon polyps; Z90.49 Acquired absence of other specified parts of digestive tract; Y99.8 Other external cause status; Z79.01 Long term (current) use of anticoagulants; Y93.89 Activity, other specified; Z79.899 Other long term (current) drug therapy; Y92.89 Other specified places as the place of occurrence of the external cause; Z88.5 Allergy status to narcotic agent; Z88.0 Allergy status to penicillin; Z88.2 Allergy status to sulfonamides; Z88.8 Allergy status to other drugs, medicaments and biological substances; Z88.1 Allergy status to other antibiotic agents; Z91.041 Radiographic dye allergy status; Z91.040 Latex allergy status; Z68.31 Body mass index [BMI] 31.0-31.9, adult

== ENCOUNTER → 2020-04-17 | Outpatient (CLI) | payer MEDICARE, MEDICAID ==
[~2020-04-17] MED LIST changes: +ALLEGRA ALLERG180 MG PO; +CLEOCIN HCL300 MG PO; +NORCO 5-325 TA1 EAC1 PO; +ULTRA-LIGHT RO1 EACH MISCELL; +VOLTAREN GEL 1100 G2 TOP
== END ==
LOC: M.MRI 11:18
PROVIDERS: ATTEND Family Medicine
DX: I67.82 Cerebral ischemia (principal); E22.9 Hyperfunction of pituitary gland, unspecified; Z88.0 Allergy status to penicillin; Z88.1 Allergy status to other antibiotic agents; Z91.013 Allergy to seafood

== ENCOUNTER → 2020-05-14 | Outpatient (CLI) | payer MEDICARE, MEDICAID | LOC: M.ULTRA 05-13 08:01 | PROVIDERS: ATTEND Family Medicine | DX: N85.8 Other specified noninflammatory disorders of uterus (principal) ==

== ENCOUNTER → 2020-06-10 | Outpatient (CLI) | payer MEDICARE, MEDICAID | LOC: M.RAD 12:04 | PROVIDERS: ATTEND Family Medicine | DX: Z12.31 Encounter for screening mammogram for malignant neoplasm of breast (principal) ==

== ENCOUNTER → 2020-07-01 | Outpatient (CLI) | payer MEDICARE, MEDICAID ==
[2020-07-01 10:24] LABS: ABSOLUTE BASOPHILS 0.1 thou/uL (0.0-0.2); ABSOLUTE EOSINOPHILS 0.1 thou/uL (0.0-0.7); ABSOLUTE LYMPHOCYTES 2.2 thou/uL (0.8-5.3); ABSOLUTE MONOCYTES 0.5 thou/uL (0.0-1.2); EOSINOPHILS 1.1 %; HEMATOCRIT 38.3 % (37.0-47.0); HEMOGLOBIN 13.3 gm/dL (12.0-15.0); LYMPHOCYTES 37.9 %; MCH 31.1 pg (26.0-34.0); MCHC 34.7 g/dL (28.0-37.0); MCV 89.7 fL (80.0-100.0); MONOCYTES 9.3 %; MPV 8.2 fl. (7.2-11.1); NUCLEATED RBCS 0 /100WBC; PLATELET COUNT* 211 thou/uL (150-400); POLYS 50.7 %; RBC 4.27 mil/uL (4.20-5.00); RDW-CV 14.2 % (10.5-14.5); WBC 5.9 thou/uL (4.0-11.0)
[2020-07-01 10:38] LABS: ALBUMIN 3.1 g/dL (3.4-5.0); ALKALINE PHOSPHATASE 88 U/L (46-116); ANION GAP 8 mmol/L (7-16); BUN 11 mg/dL (7-18); CALCIUM 8.6 mg/dL (8.5-10.1); CHLORIDE 103 mmol/L (98-107); CHOLESTEROL 193 mg/dL (<200); CO2 28 mmol/L (21-32); CREATININE 0.9 mg/dL (0.6-1.3); GLUCOSE 92 mg/dL (70-99); HDL CHOLESTEROL 58 mg/dL (>40); LDL CHOLESTEROL 115 mg/dL (<100); SERUM ASSESSMENT Clear; SGOT 14 U/L (15-37); SGPT 19 U/L (30-65); SODIUM 139 mmol/L (136-145); TC:HDL 3.3 Ratio (Not establshd); TOTAL BILIRUBIN 0.4 mg/dL (<0.1-1.0); TOTAL PROTEIN 7.2 g/dL (6.4-8.2); TRIGLYCERIDE 103 mg/dL (<150); VLDL 21 mg/dL (<40)
== END ==
LOC: M.LAB 09:54
PROVIDERS: ATTEND Psychiatry & Neurology Psychiatry
DX: F31.89 Other bipolar disorder (principal); I10 Essential (primary) hypertension

== ENCOUNTER → 2020-09-15 | Outpatient (CLI) | payer MEDICARE, MEDICAID | LOC: M.ULTRA 09:30 | PROVIDERS: ATTEND Family Medicine | DX: R10.11 Right upper quadrant pain (principal) ==

== ENCOUNTER → 2020-10-27 | Outpatient (CLI) | payer MEDICARE, MEDICAID ==
[2020-10-27 12:27] LABS: ALBUMIN 3.1 g/dL (3.4-5.0); CALCIUM 9.3 mg/dL (8.5-10.1); CREATININE 0.9 mg/dL (0.6-1.3); TOTAL BILIRUBIN 0.3 mg/dL (<0.1-1.0); TOTAL PROTEIN 7.1 g/dL (6.4-8.2)
== END ==
LOC: M.LAB 10-15 10:00 → M.CT 10-15 11:00 → M.LAB 10-22 10:00
PROVIDERS: ATTEND Internal Medicine Gastroenterology
DX: K44.9 Diaphragmatic hernia without obstruction or gangrene (principal); R19.5 Other fecal abnormalities; N85.8 Other specified noninflammatory disorders of uterus

== ENCOUNTER 2020-11-12 02:34 | Inpatient (IN) | payer MEDICARE, MEDICAID ==
[2020-11-12] VITALS (7 sets, daily range): BP systolic 133–205; BP diastolic 54–84
[~2020-11-12] VITALS: Ht 170.2 cm; Wt 107.8 kg
[2020-11-12 03:20] LABS: ABSOLUTE EOSINOPHILS 0.1 thou/uL (0.0-0.7); ABSOLUTE MONOCYTES 0.7 thou/uL (0.0-1.2); ABSOLUTE NEUTROPHILS 3.8 thou/uL (1.6-8.1); BASOPHILS 0.5 %; EOSINOPHILS 1.6 %; HEMATOCRIT 37.4 % (37.0-47.0); HEMOGLOBIN 12.5 gm/dL (12.0-15.0); LYMPHOCYTES 39.1 %; MCH 30.2 pg (26.0-34.0); MCHC 33.4 g/dL (28.0-37.0); MCV 90.4 fL (80.0-100.0); MONOCYTES 9.1 %; MPV 8.7 fl. (7.2-11.1); NUCLEATED RBCS 0 /100WBC; PLATELET COUNT* 207 thou/uL (150-400); POLYS 49.7 %; RBC 4.13 mil/uL (4.20-5.00); WBC 7.6 thou/uL (4.0-11.0)
[2020-11-12 03:26] LABS: APTT 25.1 Seconds (25.0-31.3); PROTIME 10.4 Seconds (9.20-11.50)
[2020-11-12 03:34] LABS: CALCIUM 8.9 mg/dL (8.5-10.1); CREATININE 0.9 mg/dL (0.6-1.3); POTASSIUM 3.6 mmol/L (3.5-5.1)
[2020-11-12 03:47] LABS: TOTAL BILIRUBIN 0.3 mg/dL (<0.1-1.0); TOTAL PROTEIN 6.7 g/dL (6.4-8.2)
--- NOTE | 2020-11-12 15:10 | 2DMMODE ---
[place] [address] 2 D/M-MODE ECHOCARDIOGRAM Name: DOMINICK AGRAWAL Room: [address] Julio César#: [id number] Admission: 11/12/20 Attend Phys: Nigel Thibodeaux Discharge: Date of : 50 Date of Service: 11/12/20 1509 Report #: [id number] THIS REPORT FOR: cc: Natacha Virk Maggie M. DO Holkins, John M. MD [facility] ~ APPROVED REPORT Study performed: 11/12/2020 14:20:59 EXAM: Comprehensive 2D, Doppler, and color-flow Echocardiogram Patient Location: In-Patient Room #: er Status: routine BSA: 2.09 HR: 64 bpm BP: 155/62 mmHg Rhythm: NSR Other Information Study Quality: Good Indications 2D Dimensions IVSd: 11.06 (7-11mm) LVOT Diam: 18.08 (18-24mm) LVDd: 34.46 mm PWd: 11.02 (7-11mm) Ascending Ao: 28.77 (22-36mm) LVDs: 19.70 (25-40mm) Aortic Root: 25.98 mm Volumes Left Atrial Volume (Systole) LA ESV Index: 23.10 mL/m2 Aortic Valve AoV Peak Urban.: 2.10 m/s AO Peak Gr.: 17.68 mmHg LVOT Max P.95 mmHg AO Mean Gr.: 8.87 mmHg LVOT Mean P.53 mmHg LVOT Max V: 1.41 m/s AO V2 VTI: 41.19 cm LVOT Mean V: 0.85 m/s PALOMA (VTI): 2.00 cm2 LVOT V1 VTI: 32.11 [place] [address] 2 D/M-MODE ECHOCARDIOGRAM Name: AGRAWALDOMINICK Room: [address]R.#: [id number] Admission: 11/12/20 Attend Phys: Nigel Thibodeaux Discharge: Date of : 50 Date of Service: 11/12/20 1509 Report #: [id number] Mitral Valve MV Mean Gr.: 2.51 mmHg E/A Ratio: 0.79 MV Decel. Time: 341.72 ms MV E Max Urban.: 1.04 m/s MV PHT: 99.10 ms MVA (PHT): 2.22 cm2 TDI E/Lateral E': 11.56 E/Medial E': 13.00 Medial E' Urban.: 0.08 m/s Lateral E' Urban.: 0.09 m/s Pulmonary Valve PV Peak Urban.: 0.96 m/s PV Peak Gr.: 3.68 mmHg Tricuspid Valve RAP Estimate: 5.00 mmHg TR Peak Gr.: 23.90 mmHg RVSP: 28.00 mmHg PA Pressure: 28.00 mmHg Left Ventricle The left ventricle is normal size. There is normal LV segmental wall motion. There is normal left ventricular wall thickness. Left ventricular systolic function is normal. The left ventricular ejection fraction is within the normal range. LVEF is 60%. Grade I - abnormal relaxation pattern. Right Ventricle The right ventricle is normal size. The right ventricular systolic function is normal. Atria The left atrium size is normal. The right atrium size is normal. Aortic Valve Mild aortic valve sclerosis. No aortic regurgitation is present. No hemodynamically significant valvular aortic stenosis. Mitral Valve Moderate mitral annular calcification. Mild mitral regurgitation. No evidence of mitral valve stenosis. Tricuspid Valve The tricuspid valve is normal in structure. Trace tricuspid regurgitation. [place] [address] 2 D/M-MODE ECHOCARDIOGRAM Name: DOMINICK AGRAWAL Room: [address]#: [id number] Admission: 11/12/20 Attend Phys: Nigel Thibodeaux Discharge: Date of : 50 Date of Service: 11/12/20 1509 Report #: [id number] Pulmonic Valve The pulmonary valve is normal in structure. There is no pulmonic valvular regurgitation. Great Vessels The aortic root is normal in size. IVC is normal in size and collapses >50% with inspiration. Pericardium There is no pericardial effusion. <Conclusion> The left ventricle is normal size. There is normal left ventricular wall thickness. Left ventricular systolic function is normal. The left ventricular ejection fraction is within the normal range. LVEF is 60%. Grade I - abnormal relaxation pattern. The right ventricle is normal size. The left atrium size is normal. Mild aortic valve sclerosis. No aortic regurgitation is present. No hemodynamically significant valvular aortic stenosis. Moderate mitral annular calcification. Mild mitral regurgitation. The tricuspid valve is normal in structure. IVC is normal in size and collapses >50% with inspiration. There is no pericardial effusion. There is normal LV segmental wall motion. <ELECTRONICALLY SIGNED> By: Goran Stiles MD, FACC 11/12/20 1509 1509 1509 Goran Stiles MD, FACC /INF
--- NOTE | 2020-11-12 15:24 | EKG ---
[place] [address] ELECTROCARDIOGRAM REPORT Name: DOMINICK AGRAWAL Room: [address] M.R.#: [id number] Admission: 11/12/20 Attend Phys: Nigel Thibodeaux Discharge: Date of : 50 Date of Service: 11/12/20 0230 Report #: [id number] THIS REPORT FOR: //name// [facility] ED Test Date: 2020-11-12 Test Time: 02:30:45 Pat Name: DOMINICK AGRAWAL Department: Room: [facility] Gender: F Compliance Review Specialist: JACI : 1950 Requested By: Laya Cruz Order Number: [id number] MD: Goran Stiles Measurements Intervals [place] Rate: 67 P: HI: QRS: -37 QRSD: 164 T: 54 QT: 440 QTc: 465 Interpretive Statements Sinus rhythm with PACs Baseline artifact in the standard leads Compared to ECG 08/06/2019 14:13:00 PACs are noted and artifact is present Electronically Signed On 11-12-2020 15:24:24 OCEAN EXPORT COORDINATOR by Goran Stiles [email or web address] <ELECTRONICALLY SIGNED> By: Goran Stiles MD, [facility] 11/12/20 1524 0230 0230 Goran Stiles MD, [facility] /EPI
--- NOTE | 2020-11-12 15:30 | EKG ---
[place] [address] ELECTROCARDIOGRAM REPORT Name: DOMINICK AGRAWAL Room: [address] M.R.#: [id number] Admission: 11/12/20 Attend Phys: Nigel Thibodeaux Discharge: Date of : 50 Date of Service: 11/12/20 1042 Report #: [id number] THIS REPORT FOR: //name// [facility] ED Test Date: 2020-11-12 Test Time: 10:42:40 Pat Name: DOMINICK AGRAWAL Department: Room: [place] [address] Gender: F Data Report Analyst: MARILYN : 1950 Requested By: Nigel Thibodeaux Order Number: [id number] Reading MD: Goran Stiles Measurements Intervals [place] Rate: 52 P: 22 DE: 151 QRS: -12 QRSD: 100 T: 32 QT: 454 QTc: 423 Interpretive Statements Sinus rhythm Compared to ECG 11/12/2020 02:30:45 Atrial fibrillation no longer present Intraventricular conduction delay persists Left ventricular hypertrophy no longer present T-wave abnormality no longer present Possible ischemia no longer present Electronically Signed On 11-12-2020 15:30:07 ANTISQUEAK FILLER by Goran Stiles [email or web address] <ELECTRONICALLY SIGNED> By: Goran Stiles MD, FAC 11/12/20 1530 1042 1042 Goarn Stiles MD, FAC /EPI
[2020-11-13] VITALS: BP 134/78
[2020-11-13 04:00] VITALS: BP 128/68
[2020-11-13 04:25] LABS: ABSOLUTE EOSINOPHILS 0.1 thou/uL (0.0-0.7); ABSOLUTE LYMPHOCYTES 2.6 thou/uL (0.8-5.3); ABSOLUTE MONOCYTES 0.6 thou/uL (0.0-1.2); ABSOLUTE NEUTROPHILS 3.2 thou/uL (1.6-8.1); BASOPHILS 0.5 %; EOSINOPHILS 1.7 %; HEMATOCRIT 38.7 % (37.0-47.0); HEMOGLOBIN 12.8 gm/dL (12.0-15.0); LYMPHOCYTES 40.1 %; MCH 30.1 pg (26.0-34.0); MCHC 33.1 g/dL (28.0-37.0); MCV 91.1 fL (80.0-100.0); MONOCYTES 8.7 %; MPV 8.5 fl. (7.2-11.1); NUCLEATED RBCS 0 /100WBC; PLATELET COUNT* 200 thou/uL (150-400); RBC 4.25 mil/uL (4.20-5.00); RDW-CV 14.4 % (10.5-14.5); WBC 6.6 thou/uL (4.0-11.0)
[2020-11-13 04:38] LABS: CALCIUM 8.6 mg/dL (8.5-10.1); CREATININE 0.8 mg/dL (0.6-1.3); POTASSIUM 4.1 mmol/L (3.5-5.1)
[2020-11-13 08:30] VITALS: BP 144/66
[2020-11-13 12:54] VITALS: BP 120/64
[2020-11-13 17:10] VITALS: BP 138/60
[2020-11-13 21:00] VITALS: BP 130/75
[2020-11-14] VITALS: BP 160/69
[2020-11-14 04:00] VITALS: BP 149/69
[2020-11-14 08:00] VITALS: BP 153/70
[2020-11-14 12:20] VITALS: BP 155/64
--- NOTE | 2020-11-14 12:37 | CARDNUC ---
[place] [address] CARDIAC NUCLEAR IMAGING REPORT Name: DOMINICK AGRAWAL Room: [address] IN [facility]#: [id number] Admission: 11/12/20 Attend Phys: Nigel Thibodeaux Discharge: Date of : 50 Date of Service: 11/14/20 1237 Report #: [id number] THIS REPORT FOR: cc: Natacha Virk Maggie M. DO Liston, Michael J. MD [facility] ~ APPROVED REPORT Imaging Protocol: Stress Tc-99m/Rest Tc-99m 2 days Study performed: 11/12/2020 12:45:00 Indication: Chest pain, Dyspnea Patient Location: In-Patient Stress Tech: Nery Iniguez Stress Nurse: Myra Sanchez RN NM Tech:PIERCE Luna Ht: 5 ft 7 in Wt: 217 lbs BSA: 2.09 m2 BMI: 33.98 Medical History Medical History: Atrial Fibrillation Medications: eliquis, tambocor, cozaar, hydralazine, ntg Allergies: multiple Cardiac Risk Factors: Age Exercise History: Sedentary Resting Data Rest SPECT myocardial perfusion imaging was performed in supine position 30 minutes following the intravenous injection of 33.6 mCi of Tc-99m Sestamibi. Time of rest injection: 904 Date: 11/14/2020 The images were gated to evaluate regional wall motion and calculate left ventricular ejection fraction. Administration Route: IV Administration Site: Right AC Pharmacologic Stress Pharmacologic stress test was performed by injecting Regadenoson 0.4 mg IV push over 10-15 seconds immediately followed by the intravenous injection of 30.3 mCi of Tc-99m Sestamibi. Time of stress injection: 1014 Date: 11/13/2020 Administration Route: IV Gated Stress SPECT was performed 40 [place] [address] CARDIAC NUCLEAR IMAGING REPORT Name: DOMINICK AGRAWAL Room: [address] IN ..#: [id number] Admission: 11/12/20 Attend Phys: Nigel Thibodeaux Discharge: Date of : 50 Date of Service: 11/14/20 1237 Report #: [id number] injection. The images were gated to evaluate regional wall motion and calculate left ventricular ejection fraction. Stress only was performed in the Supine position. Stress Test Details Stress Test: Pharmacologic stress testing performed using 0.4 mg of regadenoson per 5 mL given IV over 10 seconds. Reason for pharmacologic stress test: physical limitation. HR Max Heart Rate (APMHR): 150 bpm Resting HR: 69 bpm Target HR (85% APMHR): 127 bpm Max HR Achieved: 102 bpm % of APMHR: 68 Recovery HR: 92 bpm BP Resting BP: 123/80 mmHg Max BP: 114/54 mmHg Recovery BP: 139/66 mmHg ECG Resting ECG: Sinus Rhythm Stress ECG: Sinus Tachycardia ST Change: None Arrhythmia: None Recovery ECG: Sinus Rhythm Recovery ST Change: None Recovery Arrhythmia: None Clinical Reason for Termination: Completed protocol The patient tolerated Lexiscan infusion without significant cardiac symptoms. Nurse Comments pt unable to stand unassisted Stress ECG Conclusion The baseline twelve-lead EKG shows sinus rhythm without significant ST segment or T wave abnormality. EKGs obtained during and post Lexiscan infusion show sinus rhythm and sinus tachycardia with no significant ST segment or T wave changes when compared to baseline. There were no stress-induced arrhythmias. Study Quality Study: [place] [address] CARDIAC NUCLEAR IMAGING REPORT Name: DOMINICK AGRAWAL Room: [address]#: [id number] Admission: 11/12/20 Attend Phys: Nigel Thibodeaux Discharge: Date of : 50 Date of Service: 11/14/20 1237 Report #: [id number] Artifact: No artifact Study Data At rest, the left ventricular ejection fraction was 65%.. Post stress, the left ventricular ejection was 69%.. TID = 0.90. Perfusion Perfusion images show a moderate sized mild intensity reversible defect involving the basal to mid inferoseptal wall. No other significant fixed or reversible defects are identified. Wall Motion Normal left ventricular wall motion. Nuclear Conclusion ECG Findings: negative for ischemia Clinical Findings: negative for ischemia Nuclear Findings: positive for ischemia Exercise Capacity: not assessed Left Ventricular Function: Preserved Risk Study: moderate Perfusion images suggest ischemia involving the basal to mid inferoseptal wall. Global LV systolic function is normal. This is a moderate risk study. <Conclusion> The baseline twelve-lead EKG shows sinus rhythm without significant ST segment or T wave abnormality. EKGs obtained during and post Lexiscan infusion show sinus rhythm and sinus tachycardia with no significant ST segment or T wave changes when compared to baseline. There were no stress-induced arrhythmias. <ELECTRONICALLY SIGNED> By: Brandon Kauffman MD, FACC 11/14/20 1237 1237 1237 Brandon Kauffman MD, FACC /INF
[2020-11-14] MEDS ORDERED: METOPROLOL SUCC25 M1 PO (12:50)
[2020-11-14] MEDS ORDERED: COZAAR 50 MG TA50 M1 PO (12:50)
[2020-11-14 15:29] VITALS: BP 155/64
== END 2020-11-14 16:33 | disposition home or self-care (01) | DRG 309 ==
LOC: M.ERS 02:34 → M.TBA-ER 04:36 → M.2W 16:15
PROVIDERS: Internal Medicine; Personal Emergency Response Attendant; ADMIT Internal Medicine; ATTEND Internal Medicine
DX: I48.0 Paroxysmal atrial fibrillation (principal); D68.69 Other thrombophilia; R07.89 Other chest pain; I20.8 Other forms of angina pectoris; Z20.822 Contact with and (suspected) exposure to COVID-19; M19.90 Unspecified osteoarthritis, unspecified site; I10 Essential (primary) hypertension; E03.9 Hypothyroidism, unspecified; I16.0 Hypertensive urgency; I35.0 Nonrheumatic aortic (valve) stenosis; F25.0 Schizoaffective disorder, bipolar type; I34.0 Nonrheumatic mitral (valve) insufficiency; Z60.2 Problems related to living alone; Z96.652 Presence of left artificial knee joint; Z88.2 Allergy status to sulfonamides; Z88.8 Allergy status to other drugs, medicaments and biological substances; Z86.010 Personal history of colon polyps; Z88.6 Allergy status to analgesic agent; Z88.1 Allergy status to other antibiotic agents; Z91.041 Radiographic dye allergy status; Z91.040 Latex allergy status; Z88.0 Allergy status to penicillin; Z91.013 Allergy to seafood; Z90.49 Acquired absence of other specified parts of digestive tract; Z79.01 Long term (current) use of anticoagulants

== ENCOUNTER → 2020-11-20 | Outpatient (CLI) | payer MEDICARE, MEDICAID ==
[2020-11-20] VITALS (10 sets, daily range): BP systolic 117–164; BP diastolic 66–89
[~2020-11-20] MED LIST changes: +COZAAR 50 MG TA50 M1 PO; +METOPROLOL SUCC25 M1 PO
[2020-11-20 10:28] LABS: HEMATOCRIT 38.1 % (37.0-47.0); HEMOGLOBIN 12.8 gm/dL (12.0-15.0); MCH 30.3 pg (26.0-34.0); MCHC 33.6 g/dL (28.0-37.0); MCV 90.4 fL (80.0-100.0); MPV 8.9 fl. (7.2-11.1); RBC 4.22 mil/uL (4.20-5.00); RDW-CV 14.4 % (10.5-14.5); WBC 7.4 thou/uL (4.0-11.0)
[2020-11-20 10:35] LABS: ANION GAP 11 mmol/L (7-16); BUN 16 mg/dL (7-18); CALCIUM 8.7 mg/dL (8.5-10.1); CHLORIDE 103 mmol/L (98-107); CO2 28 mmol/L (21-32); CREATININE 0.9 mg/dL (0.6-1.3); GLUCOSE 93 mg/dL (70-99); POTASSIUM 3.6 mmol/L (3.5-5.1); SODIUM 142 mmol/L (136-145)
[2020-11-20 10:38] LABS: APTT 24.7 Seconds (25.0-31.3); PROTIME 10.6 Seconds (9.20-11.50)
[2020-11-20 10:40] LABS: ALKALINE PHOSPHATASE 101 U/L (46-116); CHOLESTEROL 171 mg/dL (<200); HDL CHOLESTEROL 52 mg/dL (>40); LDL CHOLESTEROL 101 mg/dL (<100); SERUM ASSESSMENT Clear; SGOT 9 U/L (15-37); SGPT 13 U/L (30-65); TC:HDL 3.3 Ratio (Not establshd); TOTAL BILIRUBIN 0.4 mg/dL (<0.1-1.0); TOTAL PROTEIN 6.8 g/dL (6.4-8.2); TRIGLYCERIDE 93 mg/dL (<150); VLDL 19 mg/dL (<40)
--- NOTE | 2020-11-20 10:44 | EKG ---
[place] [address] ELECTROCARDIOGRAM REPORT Name: DOMINICK AGRAWAL Room: [facility]#: [id number] Admission: 11/20/20 Attend Phys: Brandon Kauffman, Discharge: Date of : 50 Date of Service: 11/20/20 1041 Report #: [id number] THIS REPORT FOR: //name// [facility] Test Date: 2020-11-20 Test Time: 10:41:28 Pat Name: DOMINICK AGRAWAL Department: Room: Gender: F Cream Cheese Maker: : 1950 Requested By: Brandon Kauffman Order Number: [id number] Karan MD: Kirk Bradley Measurements Intervals [place] Rate: 54 P: 23 TN: 156 QRS: -19 QRSD: 105 T: 32 QT: 437 QTc: 415 Interpretive Statements Sinus bradycardia Atrial premature complexes Borderline left axis deviation Compared to ECG 11/12/2020 10:42:40 Atrial premature complex(es) now present Electronically Signed On 11-20-2020 10:44:20 BUS STARTER by Kirk Bradley [email or web address] <ELECTRONICALLY SIGNED> By: Kirk Bradley MD, [facility] 11/20/20 1044 1041 1041 Kirk Bradley MD, [facility] /EPI
--- NOTE | 2020-12-02 09:40 | CARD ---
[address] [address] CARDIAC CATH REPORT Name: DOMINICK AGRAWAL Room: [facility]#: [id number] Admission: 11/20/20 Attend Phys: Brandon Kauffman MD Discharge: Date of : 50 Report #: [id number] THIS REPORT FOR: cc: Natacha Virk Maggie M. DO ~ Brandon Kauffman MD [facility] APPROVED REPORT Study performed: 11/20/2020 10:50:31 Patient Details Patient Status: Out-Patient Room #: The patient is a 70 year-old female Event Personnel Brandon Kauffman Pipe Washer, Elver Lugo RN Fibre Composite Technician, Marie Alejandro RTR Monitor, Ney Morris RTR Scrub Procedures Performed Art Access - R femoral artery, Left Heart Cath w/or w/o Coronaries LHC , Hemostasis w/ Mynx Indication Positive stress test, Chest pain Procedure Narrative The patient was brought electively to the Cardiac Catheterization Laboratory and was prepped and draped in a sterile manner. The right femoral was infiltrated with 1% Lidocaine subcutaneous anesthesia. A 6F [place] sheath was inserted into the right femoral artery. Coronary angiography was performed using coronary diagnostic catheters. The right coronary system was accessed and visualized with a 6F JR4 catheter. The left coronary system was accessed and visualized with a 6F JL4 catheter. The left ventricle was accessed and visualized with a 6F Pigtail catheter. Left ventricular/Aortic Valve gradient assessed via catheter pullback. Left ventriculogram was performed in CALERO projection. Pre-demployment femoral angiogram was performed . Closure device was deployed with a 6 Fr Mynx. The patient tolerated the procedure well and there were no complications associated with the procedure. There was no hematoma. Intraoperative Conscious Sedation Sedation start time: 11:21 Case end Time: 11:32 [place] [address] CARDIAC CATH REPORT Name: DOMINICK AGRAWAL Room: [facility]#: [id number] Admission: 11/20/20 Attend Phys: Brandon Kauffman MD Discharge: Date of : 50 Report #: [id number] Fluoro Time: 1.7 minutes Dose: DAP 56185 cGycm2 669 mGy Contrast Type and Amount: Visipaque 100 ml Diagnostic Cath Left Main The left main coronary artery is normal and bifurcates into a left anterior descending and circumflex coronary artery. LAD The left anterior descending coronary artery is normal in its proximal mid and distal portion. Diagonal 1 The first diagonal is moderate in size and normal. Diagonal 2 The second diagonal branch is a large vessel that is normal. Circumflex The circumflex coronary artery is normal in its proximal mid and distal portion. OM1 The first obtuse marginal branch is a moderate-sized vessel that is normal. OM2 The circumflex terminates in a moderate-sized branch second obtuse marginal branch that is normal. Right Coronary The right coronary artery is normal in its proximal mid and distal portion. R PDA The PDA is small in caliber but appears normal. RPLV A moderate size small in caliber branch posterior lateral branch is normal. Left Ventriculography The left ventricle is normal in size with normal contractility. The left ventricular ejection fraction is estimated to be 60%. Hemodynamics The aortic pressure is 176/47 mmHg with a mean of 104 mmHg. The left ventricular pressure is 176/8 mmHg with a mean of mmHg. The left ventricular end diastolic pressure is 10 mmHg. Conclusion 1. Normal coronary arteries. 2. Normal left ventricular systolic function. 3. Normal left ventricular [place] [address] CARDIAC CATH REPORT Name: DOMINICK AGRAWAL Room: [facility]#: [id number] Admission: 11/20/20 Attend Phys: Brandon Kauffman MD Discharge: Date of : 50 Report #: [id number] Recommendations 1. Continue current medical management. <ELECTRONICALLY SIGNED> By: Brandon Kauffman MD, [facility] 12/02/20 0939 0939Micronni Kauffman MD, FACC /INF
== END | disposition home or self-care (01) ==
LOC: M.CL 09:45
PROVIDERS: ATTEND Internal Medicine Cardiovascular Disease
DX: R07.9 Chest pain, unspecified (principal); R94.39 Abnormal result of other cardiovascular function study; R06.02 Shortness of breath; I10 Essential (primary) hypertension; I48.91 Unspecified atrial fibrillation; E03.9 Hypothyroidism, unspecified; M19.90 Unspecified osteoarthritis, unspecified site; F25.0 Schizoaffective disorder, bipolar type; Z98.890 Other specified postprocedural states; Z79.899 Other long term (current) drug therapy; Z96.652 Presence of left artificial knee joint; Z90.49 Acquired absence of other specified parts of digestive tract; Z20.822 Contact with and (suspected) exposure to COVID-19; Z88.0 Allergy status to penicillin; Z91.040 Latex allergy status; Z88.8 Allergy status to other drugs, medicaments and biological substances

== ENCOUNTER → 2021-06-30 | Outpatient (CLI) | payer MEDICARE, MEDICAID ==
[~2021-06-30] MED LIST changes: +ALBUTEROL0.63 MG/3 INH; +CABERGOLINE 0.0.5 MG PO; +FAMOTIDINE 10 M10 MG PO; +PREDNISONE 20 M20 MG PO
== END ==
LOC: M.ULTRA 12:33
PROVIDERS: ATTEND Family Medicine
DX: R22.43 Localized swelling, mass and lump, lower limb, bilateral (principal)

== ENCOUNTER → 2021-09-21 | Outpatient (CLI) | payer MEDICARE, MEDICAID | LOC: M.ULTRA 14:00 | PROVIDERS: ATTEND Family Medicine | DX: M79.89 Other specified soft tissue disorders (principal); M79.606 Pain in leg, unspecified ==

== ENCOUNTER 2021-10-02 16:17 | Observation (INO) | payer MEDICARE, MEDICAID ==
[~2021-10-02] VITALS: Ht 170.2 cm; Wt 106.1 kg
[2021-10-02 16:30] VITALS: BP 208/79
[2021-10-02 16:50] LABS: ABSOLUTE EOSINOPHILS 0.1 thou/uL (0.0-0.7); ABSOLUTE LYMPHOCYTES 1.9 thou/uL (0.8-5.3); ABSOLUTE MONOCYTES 0.6 thou/uL (0.0-1.2); ABSOLUTE NEUTROPHILS 2.8 thou/uL (1.6-8.1); BASOPHILS 0.6 %; EOSINOPHILS 2.3 %; HEMATOCRIT 38.5 % (37.0-47.0); HEMOGLOBIN 12.4 gm/dL (12.0-15.0); LYMPHOCYTES 34.2 %; MCH 30.9 pg (26.0-34.0); MCHC 32.3 g/dL (28.0-37.0); MCV 95.7 fL (80.0-100.0); MONOCYTES 11.1 %; MPV 8.4 fl. (7.2-11.1); NUCLEATED RBCS 0 /100WBC; PLATELET COUNT* 182 thou/uL (150-400); POLYS 51.8 %; RBC 4.02 mil/uL (4.20-5.00); RDW-CV 15.5 % (10.5-14.5); WBC 5.5 thou/uL (4.0-11.0)
[2021-10-02 17:00] LABS: CALCIUM 8.4 mg/dL (8.5-10.1); CREATININE 0.9 mg/dL (0.6-1.3); POTASSIUM 4.2 mmol/L (3.5-5.1)
[2021-10-02 17:10] LABS: ALBUMIN 2.8 g/dL (3.4-5.0); TOTAL BILIRUBIN 0.2 mg/dL (<0.1-1.0); TOTAL PROTEIN 6.8 g/dL (6.4-8.2)
[2021-10-02] MEDS ORDERED: LASIX 20 MG TAB20 MG PO (17:38)
[2021-10-02 18:49] LABS: URINE BILIRUBIN NEGATIVE (Negative); URINE BLOOD TRACE (Negative); URINE CLARITY CLEAR; URINE COLOR YELLOW; URINE GLUCOSE-RANDOM NEGATIVE (Negative); URINE KETONES NEGATIVE (Negative); URINE LEUKOCYTES-REFLEX NEGATIVE (Negative); URINE NITRITE-REFLEX NEGATIVE (Negative); URINE PROTEIN NEGATIVE (Negative); URINE SPECIFIC GRAVITY <= 1.005 (1.005-1.030); URINE UROBILINOGEN 0.2 E.U./dl (0.2-1.0)
[2021-10-02 22:55] VITALS: BP 165/76
[2021-10-02 23:00] VITALS: BP 153/66
[2021-10-02] MEDS ORDERED: D3-200050 MCG PO (23:14)
[2021-10-03 04:00] VITALS: BP 137/64
[2021-10-03 08:00] VITALS: BP 119/61
--- NOTE | 2021-10-03 09:30 | EKG ---
[place] [address] ELECTROCARDIOGRAM REPORT Name: DOMINICK AGRAWAL Room: [address] M.R.#: [id number] Admission: 10/02/21 Attend Phys: Nigel Thibodeaux Discharge: Date of : 50 Date of Service: 10/02/21 1618 Report #: [id number] THIS REPORT FOR: //name// [facility] ED Test Date: 2021-10-02 Test Time: 16:18:00 Pat Name: DOMINICK AGARWAL Department: Room: [facility] Gender: F Legal Billing Specialist: DAYLIN : 1950 Requested By: David Jimenez Order Number: [id number] MD: Ike Nash Measurements Intervals [place] [employer] Rate: 68 P: [place]: QRS: -11 QRSD: 105 T: 45 QT: 415 QTc: 442 Interpretive Statements Atrial fibrillation Compared to ECG 04/06/2021 19:35:37 Sinus rhythm no longer present Atrial premature complex(es) no longer present Electronically Signed On 10-03-2021 9:29:28 CRANE HOOKER by Ike Nash [email or web address] <ELECTRONICALLY SIGNED> By: Aleksandr Nash MD, [facility] 10/03/21 0929 1618 1618 Aleksandr Nash MD, [facility] /EPI
[2021-10-03 12:15] VITALS: BP 207/91
[2021-10-03 14:22] LABS: ABSOLUTE LYMPHOCYTES 1.7 thou/uL (0.8-5.3); ABSOLUTE MONOCYTES 0.8 thou/uL (0.0-1.2); ABSOLUTE NEUTROPHILS 6.7 thou/uL (1.6-8.1); BASOPHILS 0.2 %; EOSINOPHILS 0.1 %; HEMATOCRIT 37.2 % (37.0-47.0); HEMOGLOBIN 12.6 gm/dL (12.0-15.0); LYMPHOCYTES 18.6 %; MCH 30.9 pg (26.0-34.0); MCV 90.8 fL (80.0-100.0); MONOCYTES 9.1 %; MPV 8.8 fl. (7.2-11.1); NUCLEATED RBCS 0 /100WBC; PLATELET COUNT* 191 thou/uL (150-400); RDW-CV 14.5 % (10.5-14.5); WBC 9.3 thou/uL (4.0-11.0)
[2021-10-03 14:32] LABS: CALCIUM 8.2 mg/dL (8.5-10.1); CREATININE 0.9 mg/dL (0.6-1.3); POTASSIUM 4.1 mmol/L (3.5-5.1)
[2021-10-03 16:13] VITALS: BP 179/80
[2021-10-03 20:00] VITALS: BP 156/63
[2021-10-04 00:17] VITALS: BP 142/56
[2021-10-04 04:00] VITALS: BP 150/50
[2021-10-04 06:45] LABS: HEMATOCRIT 36.2 % (37.0-47.0); MCH 31.1 pg (26.0-34.0); MCV 94.2 fL (80.0-100.0); MPV 8.6 fl. (7.2-11.1); RBC 3.85 mil/uL (4.20-5.00); RDW-CV 15.3 % (10.5-14.5); WBC 8.3 thou/uL (4.0-11.0)
[2021-10-04 06:51] LABS: CALCIUM 8.4 mg/dL (8.5-10.1); CREATININE 0.8 mg/dL (0.6-1.3); MAGNESIUM 2.2 mg/dL (1.8-2.4); POTASSIUM 3.8 mmol/L (3.5-5.1)
[2021-10-04 08:00] VITALS: BP 171/78
[2021-10-04 12:11] VITALS: BP 146/68
[2021-10-04 15:52] VITALS: BP 140/64
[2021-10-04 17:16] VITALS: BP 140/64
== END 2021-10-04 18:00 | disposition home health service (06) ==
LOC: M.ERS 16:17 → M.TBA-ER 18:31 → M.2W 22:38
PROVIDERS: Family Medicine; Internal Medicine; Physician Assistant; ADMIT Internal Medicine; ATTEND Internal Medicine
DX: R53.1 Weakness (principal); Z20.822 Contact with and (suspected) exposure to COVID-19; I10 Essential (primary) hypertension; F31.9 Bipolar disorder, unspecified; F25.9 Schizoaffective disorder, unspecified; E03.9 Hypothyroidism, unspecified; M19.90 Unspecified osteoarthritis, unspecified site; I48.91 Unspecified atrial fibrillation; E78.5 Hyperlipidemia, unspecified; Z79.899 Other long term (current) drug therapy